=== PATIENT | male | born 1970 | race Caucasian/White ===

== ENCOUNTER → 2019-10-19 15:00 | Outpatient (BNVA) | payer MEDICARE, SELFPAY | PROVIDERS: Family Provider Family Medicine; PCP Family Medicine; Visit Provider Anesthesiology | DX: G89.29 Other chronic pain (principal); M54.5 Low back pain; M75.51 Bursitis of right shoulder; M79.651 Pain in right thigh; M79.652 Pain in left thigh; F17.210 Nicotine dependence, cigarettes, uncomplicated; Z79.891 Long term (current) use of opiate analgesic | CPT/HCPCS: 99214 ==

== ENCOUNTER → 2019-12-21 12:37 | Outpatient (BNVA) | payer MEDICARE, SELFPAY | PROVIDERS: Family Provider Family Medicine; PCP Family Medicine; Visit Provider Nurse Practitioner | DX: Z76.89 Persons encountering health services in other specified circumstances (principal) ==

== ENCOUNTER 2020-02-28 17:36 | Emergency (ER) | payer MEDICARE, SELFPAY ==
[2020-02-28 17:52] VITALS: BP 179/106; PULSE 102; RESP 14; TEMP 36.3; O2SAT 98; BMI 22.1
[2020-02-28 19:06] LABS: Basophils # 0.1 10^3/uL (0.0-0.1); Basophils % 0.9 %; Eosinophils # 0.3 10^3/uL (0.0-0.8); Eosinophils % 2.6 %; Hematocrit 46.5 % (42.0-52.0); Hemoglobin 15.4 g/dL (11.7-16.6); Lymphocytes # 3.1 10^3/uL (0.8-4.8); Lymphocytes % 32.7 %; Mean Corpuscular HGB Conc 33.1 g/dL (30.0-36.0); Mean Corpuscular Hemoglobin 32.9 pg (28.0-34.0); Mean Corpuscular Volume 99.4 fL (80-94); Monocytes # 0.7 10^3/uL (0.2-0.9); Monocytes % 7.6 %; Neutrophils # 5.3 10^3/uL (1.8-7.7); Neutrophils % 55.9 %; Nucleated Red Blood Cells % 0 %; Platelet Count 238 10^3/cmm (130-400); Red Blood Count 4.68 10^6/uL (4.1-5.3); Red Cell Distribution Width 13.1 % (12.1-15.1); White Blood Count 9.5 10^3/uL (4.0-10.0)
[2020-02-28 19:21] LABS: Alanine Aminotransferase 19 U/L (0-41); Albumin Level 4.4 g/dL (3.5-5.2); Alkaline Phosphatase 42 IU/L (40-130); Anion Gap 16.3 (5-19); Aspartate Amino Transferase 40 U/L (0-40); Blood Urea Nitrogen 11 mg/dL (6-20); Calcium 9.7 mg/dL (8.5-10.5); Carbon Dioxide 23 mmol/L (22-29); Chloride 103 mmol/L (98-107); Globulin 2.2 g/dL (1.3-4.6); Glomerular Filtration Rate 58.9 mL/min (90-130); Glucose 96 mg/dL (65-115); Lipase 30 U/L (13-60); Osmolality Calculated 282 mOsm/kg (285-295); Potassium 4.3 mmol/L (3.5-5.1); Sodium 138 mmol/L (136-145); Total Bilirubin 0.5 mg/dL (0.15-1.2); Total Protein 6.6 g/dL (6.6-8.7)
[2020-02-28 19:34] VITALS: BP 153/95; PULSE 86; RESP 18; O2SAT 97
[2020-02-28 20:04] VITALS: BP 155/100; PULSE 90; RESP 18; O2SAT 98
--- NOTE | 2020-02-28 20:11 | ED_ITS ---
HPI - Abdominal Pain General: Chief Complaint: Abdominal Pain Stated Complaint: lower r abd pain Time Seen by Provider: 02/28/20 19:56 History of Present Illness: HPI narrative: Patient is a 49-year-old male comes to the ED with abdominal pain and hernia. Patient says that he has had this hernia for a while now and sometimes it is painful when he lifts things. He says the pain is brief and he will be able to see hernia visibly protruding from the lower abdomen, but when he relaxes it goes away. He said that today he was lifting something and he felt some intense pain in his left lower abdomen and also described feeling a burning sensation there. He says the pain has been constant ever since it started earlier today. He rates the pain an 8 out of 10. Patient did say he had one episode of diarrhea earlier today, but no blood was not stool. He says he has not had any diarrhea since earlier this morning. Denies any nausea/vomiting, fever, chills, dysuria, hematuria, blood in the stool, constipation. Associated Symptoms: Denies chills, constipation, diarrhea, dysuria, fever(s), hematochezia, hematuria, nausea and vomiting Review of Systems Const: Denies: fever(s), chills or fatigue Eyes: Denies: change in vision or eye discomfort ENMT: Denies: throat pain, odynophagia, nasal discharge or nasal congestion Card: Denies: chest pain, palpitations, edema, swelling of feet/ankles, dyspnea on exertion or orthopnea Resp: Denies: dyspnea, productive cough or non-productive cough GI: Reports: abdominal pain; Denies: nausea, vomiting, diarrhea, constipation or hematochezia : Denies: flank pain, difficulty urinating, dysuria or hematuria Musc: Denies: neck pain, back pain or extremity swelling Skin/Breast: Denies: rash or new lesions Neuro: Denies: headache(s), numbness in extremities or weakness in extremities PFSH ED PFSH: Medical History Chronic back pain greater than 3 months duration Encounter for long-term use of opiate analgesic Opioid contract exists Smoker Subacromial bursitis of right shoulder joint Surgical History H/O arthroscopic knee surgery History of nephrectomy, right History of partial surgical removal of colon Social History Smoking and tobacco status: current every day smoker cigarettes Packs smoked per day: 1 Alcohol intake: current Alcohol intake frequency: holidays/special occasions only Physical Exam Const: COMMON NORMALS: no acute distress, patient oriented x3 and alert GENERAL APPEARANCE: cooperative; not comfortable (Patient appears uncomfortable and in some pain.) HENMT: COMMON NORMALS: normocephalic HEAD & SCALP: normocephalic MOUTH: Normal oral and palatal mucosa present THROAT: posterior oropharynx normal and uvula midline Eye: COMMON NORMALS: Equal, round and reactive pupils present PUPIL: Yes Equal, round and reactive pupils present Neck/C-Spine: COMMON NORMALS: supple GENERAL: Yes normal visual inspection Resp: COMMON NORMALS: normal respiratory effort, No retractions, No use of accessory muscles and clear to auscultation bilaterally AUSCULTATION: clear to auscultation bilaterally Cardio: COMMON NORMALS: regular rate, regular rhythm, S1 normal heart sound present, S2 normal heart sound present, No gallops present (Cardio), No clicks present (Cardio), No murmurs present (Cardio) and Peripheral pulses 2+ throughou t RATE: regular rate RHYTHM: regular rhythm HEART SOUNDS: S1 normal heart sound present and S2 normal heart sound present PERIPHERAL PULSES: Peripheral pulses 2+ throughout GI: COMMON NORMALS: Normal to inspection, nondistended, normoactive bowel sounds present and Soft to palpation INSPECTION: Yes visible herniation (Left inguinal-appeared to be nonreducible) AUSCULTATION: Yes normoactive bowel sounds PALPATION: Yes Soft to palpation and Yes Tenderness to palpation present (GI) Details: LLQ (left inguinal hernia was tender to palpation) : COMMON NORMALS: Yes no CVA tenderness BLADDER/KIDNEY EXAM: Yes no CVA tenderness Back/Pelvis: COMMON NORMALS: no CVA tenderness Extremity: COMMON NORMALS: normal to inspection and no pedal edema Neuro: COMMON NORMALS: patient oriented x3 SENSORIUM/ORIENTATION: Yes alert GAIT: Yes Normal gait present Skin: COMMON NORMALS: no rashes or lesions noted GENERAL SKIN EXAM: no rashes or lesions noted and dry skin Course Vital Signs: Vital signs: Vital Signs Temperature 97.3 F L 02/28/20 17:52 Pulse Rate 74 02/28/20 22:20 Respiratory Rate 16 02/28/20 22:20 Blood Pressure 142/88 02/28/20 22:20 Pulse Oximetry 96 02/28/20 22:20 MDM - Abdominal Pain MDM Narrative: Medical decision making narrative: Patient is a 49-year-old male who comes to the ED with painful left inguinal hernia. CBC, CMP and UA were unremarkable. CT of the abdomen showed a left inguinal hernia containing fat and no bowel. General surgery referral was placed with case management. Patient symptoms controlled here in the ED. I told patient that gen surgery should be contacting patient in the next several days to set up an appointment. Patient told that he can return to ED for reevaluation if he has any worsening symptoms. Patient understood and agreed with plan. Lab Data: Attestation: I reviewed the patient's lab results. Labs: Lab Results 02/28/20 02/28/20 02/28/20 Range/Units 18:45 18:45 20:00 WBC 9.5 (4.0-10.0) 10^3/ uL RBC 4.68 (4.1-5.3) 10^6/u L Hgb 15.4 (11.7-16.6) g/dL Hct 46.5 (42.0-52.0) % MCV 99.4 H (80-94) fL MCH 32.9 (28.0-34.0) pg MCHC 33.1 (30.0-36.0) g/dL RDW 13.1 (12.1-15.1) % Plt Count 238 (130-400) 10^3/c mm MPV 9.0 (7.4-10.4) fL Neut % (Auto) 55.9 % Lymph % (Auto) 32.7 % [place] % (Auto) 7.6 % Eos % (Auto) 2.6 % Baso % (Auto) 0.9 % Neut # (Auto) 5.3 (1.8-7.7) 10^3/u L Lymph # (Auto) 3.1 (0.8-4.8) 10^3/u L [place] # (Auto) 0.7 (0.2-0.9) 10^3/u L Eos # (Auto) 0.3 (0.0-0.8) 10^3/u L Baso # (Auto) 0.1 (0.0-0.1) 10^3/u L Nucleated RBC % (a uto) 0 % Nucleated RBCs # 0.0 /100WBC Sodium 138 (136-145) mmol/L Potassium 4.3 (3.5-5.1) mmol/L Chloride 103 (98-107) mmol/L Carbon Dioxide 23 (22-29) mmol/L Anion Gap 16.3 (5-19) BUN 11 (6-20) mg/dL Creatinine 1.3 H (0.7-1.2) mg/dL GFR Calculation 58.9 L (90-130) mL/min Glucose 96 (65-115) mg/dL Calculated Osmolal ity 282 L (285-295) mOsm/k g Calcium 9.7 (8.5-10.5) mg/dL Total Bilirubin 0.5 (0.15-1.2) mg/dL AST 40 (0-40) U/L ALT 19 (0-41) U/L Alkaline Phosphata se 42 (40-130) IU/L Total Protein 6.6 (6.6-8.7) g/dL Albumin 4.4 (3.5-5.2) g/dL Globulin 2.2 (1.3-4.6) g/dL Lipase 30 (13-60) U/L Urine Color Yellow (Yellow) Urine Appearance Clear (CLEAR) Urine pH 6 (5-7) Ur Specific Gravit y 1.020 (1.005-1.030) Urine Protein Neg (Negative) Urine Glucose (UA) Norm (Normal) Urine Ketones Negative (Negative) Urine Blood Neg (Negative) Urine Nitrate Negative (Negative) Urine Bilirubin Neg (NEGATIVE) Urine Urobilinogen Norm (Negative) mg/dL Ur Leukocyte Ashley ase Negative (Negative) Urine RBC None (0-2) /hpf Urine WBC 0-4 H (0-5) /hpf Ur Squamous Epith Cells 5-10 H (0-5) Urine Bacteria Trace (NONE) Imaging Data ^: CT Abd/Pel: Attestation: I personally reviewed and interpreted this imaging study as follows: Radiologist's impression: [address] [place] [address] CT Scan Report Signed Patient: Chepe Madrigal Unit #: [id number] : 1970 [id number] Age/Sex: 49 / M ADM Date: 02/28/20 Loc: ER Room/Bed: Attending Dr: Ordering Provider/Ordering MD: Shola Carcamo Date of Service: 02/28/20 Procedure(s): CT abdomen pelvis con [id number] Accession Number(s): [id number] Report Number: [id number] PROCEDURE INFORMATION: Exam: CT Abdomen And Pelvis Without Contrast Exam date and time: 02/28/2020 8:20 PM Age: 49 years old Clinical indication: Abdominal pain; Localized; Left lower quadrant (llq); Prior surgery; Surgery date: 6+ months; Surgery type: Gb, colon, R nephrectomy; Patient HX: C/O llq abd pain - ? hernia worsened today after lifting; Additional info: Lower right abdom pain, hernia TECHNIQUE: Imaging protocol: Computed tomography of the abdomen and pelvis without contrast. Radiation optimization: All CT scans at this facility use at least one of these dose optimization techniques: automated exposure control; mA and/or kV adjustment per patient size (includes targeted exams where dose is matched to clinical indication); or iterative reconstruction. COMPARISON: No relevant prior studies available. RADIATION DOSE METRICS: Total DLP: 508.71 mGy-cm FINDINGS: Liver: The liver is normal. Gallbladder and bile ducts: Status post cholecystectomy. The common bile duct measures 9 mm which is mildly dilated. No evidence of obstructive calculus or lesion. This degree of dilation is not unusual following cholecystectomy. Pancreas: The pancreas is normal. Spleen: The spleen is normal. Adrenals: The adrenals are normal. Kidneys and ureters: Status post right nephrectomy. The left kidney is normal. No hydronephrosis. Stomach and bowel: There are few colonic diverticula. No associated wall thickening or inflammation. No evidence of bowel obstruction. Appendix: No evidence of appendicitis. Intraperitoneal space: Unremarkable. No free air. No significant fluid collection. Vasculature: Unremarkable. No abdominal aortic aneurysm. Lymph nodes: Unremarkable. No enlarged lymph nodes. Bladder: The bladder is normal with no evidence of calculi. Reproductive: The prostate is mildly enlarged, 4.5 cm. Bones/joints: There are mild degenerative changes of the lumbar spine. No fracture. Soft tissues: There is a small fat containing left inguinal hernia. CT/CT abdomen pelvis wo con [id number] IMPRESSION: 1. Small fat containing left inguinal hernia. No bowel within the hernia. 2. Scattered colonic diverticula. No acute inflammatory findings. Radiation Dose CTDIVOL = (mGy): DLP = 508.71 (mGy-cm) Dictated By: Owen Quevedo MD Signed By: Owen uQevedo MD Signed Date/Time: 02/28/202124 DD/ 22 Discharge Plan Discharge Patient Disposition: Home, Self-Care Clinical Impression: Inguinal hernia Qualifiers: Obstruction and gangrene presence: without obstruction or gangrene Laterality: unilateral Recurrence: non-recurrent Qualified Code(s): K40.90 - Unilateral inguinal hernia, without obstruction or gangrene, not specified as recurrent Condition: Stable Prescriptions: No Action hydrocodone-acetaminophen 5-325 mg tablet 1 tab PO QID PRN (Reason: pain) 30 Days Qty: 120 RF: 0 Hold Instructions: Home Medication placed on hold at Doctor's office ibuprofen 200 mg Tablet 200 mg PO Q6H PRN (Reason: Pain) RF: 0 Breo Ellipta 100-25 mcg/dose blister with device See Rx Instructions .ROUTE .COMPLEX RF: 0 Discharge Orders: Discharge Order (Routine); Ordered 02/28/20 Ordered By: Shola Carcamo Referrals: Paulina Talley DO [Primary Care Provider] - Discharge Diet: Regular Discharge Activity: Limit activity as instructed Patient Instructions: Inguinal Hernia (ED) Activity Restrictions/Additional Instructions: I placed a referral to case management for you to be seen by general surgery. They should be contacting you in the next several days to set up an appointment. You can return to work on Tuesday, March 03 but limit lifting to under 10 pounds. Call your PCP tomorrow morning to set up an appointment for reevaluation in 7 to 10 days. You can take Tylenol or ibuprofen for any pain. If symptoms worsen you can return to ED for reevaluation. 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
[2020-02-28 20:35] LABS: Add Urine Culture? No; Bacteria Urine TRACE; Bilirubin Urine Neg (NEGATIVE); Blood Urine Neg (Negative); Glucose Urine UA Norm (Normal); Ketones Urine Negative (Negative); Leukocyte Esterase Urine Negative (Negative); Nitrate Urine Negative (Negative); Protein Urine Neg (Negative); Urine Appearance Clear (CLEAR); Urine Color Yellow (Yellow); Urobilinogen Urine Norm (Negative); WBC Urine 0-4 /hpf (0-5); pH Urine 6 (5-7)
[2020-02-28 20:50] VITALS: BP 156/96; PULSE 89; RESP 16; O2SAT 96
[2020-02-28] MEDS: morphine 4 mg/mL SDV 1 mL IVP (20:56)
[2020-02-28] MEDS: ondansetron 2 mg/ML SDV 2 mL 4 MG IVP (20:57)
[2020-02-28] MEDS: sodium chloride 0.9% 1,000 ML 999 ML IV (20:59)
[2020-02-28 22:20] VITALS: BP 142/88; PULSE 74; RESP 16; O2SAT 96
[2020-02-28] MEDS: HYDROcodone-acetaminophen 7.5-325 mg Tablet 1 TAB PO (22:31)
--- NOTE | 2020-02-29 09:57 | DCPLANNER ---
embedded software manager had message to schedule a follow up appointment for patient with general surgery. embedded software manager called [facility], spoke with [facility], a follow up appointment was scheduled for Wednesday, March 04, 2020 at 3:[address] Juárez. Clinic will call patient with appointment information.
--- NOTE | 2020-03-14 14:10 | DCPLANNER ---
Patient had an appointment scheduled for 03.04.20 with [employer]. Patient did attend the appointment.
== END 2020-02-28 22:32 | disposition home or self-care (01) ==
PROVIDERS: Emergency Medicine; Emergency Provider Physician Assistant; PCP Family Medicine
DX: K40.90 Unilateral inguinal hernia, without obstruction or gangrene, not specified as recurrent (principal); F17.210 Nicotine dependence, cigarettes, uncomplicated; Z90.49 Acquired absence of other specified parts of digestive tract; Z90.5 Acquired absence of kidney
CPT/HCPCS: 12345; 36415; 74176; 80053; 81001; 83690; 85025; 96361; 96374; 96375; 99283; J2270; J2405; J7030

== ENCOUNTER 2020-03-05 11:02 | Day surgery (SDC) | payer MEDICARE, SELFPAY ==
[2020-03-04 16:23] VITALS: BMI 23.3
[2020-03-05 11:24] VITALS: BP 165/100; PULSE 80; RESP 18; TEMP 36.4; O2SAT 98
[2020-03-05] MEDS: sodium chloride 0.9% 1,000 ML 30 ML IV (11:35)
--- NOTE | 2020-03-05 11:44 | ANES.PREANE2 ---
Pre-Anesthetic Assessment Pre-Anesthetic Assessment: Height/Weight: Height 1.6 m Weight 59.874 kg Temp Pulse Resp BP Pulse Ox 97.6 F 80 18 165/100 98 03/05/20 11:24 03/05/20 11:24 03/05/20 11:24 03/05/20 11:24 03/05/20 11:24 Preop Diagnosis: Left inguinal hernia Proposed Procedure: Operation Date: 03/05/20 12:45 Proposed Procedures p Inguinal Hernia Repair w/ Mesh 47948 K40.90(Left) - Martinez Juárez MD Last intake: Intake Last Liquid Date 03/04/20 Last Liquid Time 23:00 Last Solid Date 03/04/20 Last Solid Time 19:00 Social: Social History: Alcohol (occ) and Tobacco Exam: Pre-Anes Outpt Exam: alert, oriented x 3, clear to auscultation bilaterally and regular rate & rhythm Airway: Submandibular: WNL Cervical ROM: WNL MP: 2 Dentition: False (upper and lower) History/ROS: No significant history except as noted Pulmonary: Pulmonary: None reported CV/HEM: CV/HEM: None reported : : None reported Hepatic: Hepatic: None reported GI: GI: None reported Metabolic: Metabolic: None reported Musc/skel: Musc/skel: Lower Back Pain and OA/DJD Neuropsych: Neuropsych: None reported Anesthetic Plan: ASA status: 2 Anesthesia: Anesthesia Evaluation and General Risk of > 500 ml blood loss (7ml/kg in children): No PFSH Anesthesia PFSH: Medical History Chronic back pain greater than 3 months duration Subacromial bursitis of right shoulder joint Surgical History H/O arthroscopic knee surgery H/O circumcision H/O colonoscopy 5 years ago H/O esophagogastroduodenoscopy History of nephrectomy, right History of partial surgical removal of colon Hx of cholecystectomy Family History Other Diabetes Denies family history of CAD (coronary artery disease) Anesthesia complication Bleeding disorder Cancer Social History Smoking and tobacco status: current every day smoker cigarettes Packs smoked per day: 1 Alcohol intake: current Alcohol intake frequency: holidays/special occasions only Household members: other Details: room mate Marital status: Single Current occupational status: employed History of recent travel: No Data Anesthesia Cardiac Studies: No Data to Display
--- NOTE | 2020-03-05 12:03 | W.PM.OPSUD ---
Surgery/Procedure H&P Update DATE OF PROCEDURE: March 05, 2020 DATE H&P PERFORMED: 03/04/20 H&P UPDATE INFORMATION: I have reviewed H&P completed within last 30 days, I have examined patient prior to procedure and No changes to prior documentation PREOP DIAGNOSIS: Left inguinal hernia PLANNED PROCEDURE: Operation Date: 03/05/20 12:45 Proposed Procedures p Inguinal Hernia Repair w/ Mesh [id number] K40.90(Left) - Martinez Juárez MD
[2020-03-05] MEDS: vancomycin 1,000 MG in sodium chloride 0.9% 250 ML 250 MG IV (12:13)
[2020-03-05] MEDS: lidocaine 1% INJ 20 mL SUBCUT (13:21)
[2020-03-05 13:31] VITALS: BP 141/88; PULSE 105; RESP 18; TEMP 36.6; O2SAT 98
[2020-03-05 13:35] VITALS: BP 101/70; PULSE 112; RESP 20; O2SAT 99
[2020-03-05 13:40] VITALS: BP 125/87; PULSE 96; RESP 20; TEMP 36.6; O2SAT 100
[2020-03-05 13:58] VITALS: BP 123/75; PULSE 94; RESP 18; TEMP 36.6; O2SAT 98
[2020-03-05] MEDS: HYDROcodone-acetaminophen 5-325 mg Tablet 1 TAB PO (14:15)
--- NOTE | 2020-03-05 14:18 | P.OP_ITS ---
Operative Report Date of procedure: March 05, 2020 Pre-op Diagnosis: Left inguinal hernia Post-op Diagnosis: Small reducible indirect and large direct left inguinal hernia Procedure Done: Open repair of left inguinal hernia with plug and mesh Pathology: none sent Surgeon: Martinez Juárez Anesthesia: General Estimated blood loss (mL): 10 Condition: stable Disposition: PACU Procedure: A 5 cm incision was made over the left inguinal canal using 15 blade, the subcutaneous tissue, Aguila's fascia divided using electrocautery until the external oblique aponeurosis was identified. Using a 15 blade, a small opening was made in the external oblique aponeurosis along the length of the fibers, this was grasped with hemostats and opened using Metzenbaum scissors medially to the external ring and laterally beyond the internal ring. The contents of inguinal canal were dissected free from the wall and a Kelayres drain was placed around it. There was a large direct hernia noted.. The cremasteric muscles were divided until the sac could be dissected free from the spermatic cord and reduced into the preperitoneal space. A small plug was placed in the internal ring and sutured using 2-0 Prolene [id number] suture. A Proloop mesh was introduced and using 2-0 Prolene suture the medial edge of the mesh were sutured to the fascia overlying the pubic tubercle, and the suture was run to approximate the inferior edge of the mesh to the shelving edge of inguinal ligament to a point beyond the internal ring. Interrupted 2-0 Prolene suture was used to approximate the superior edge of the mesh to the internal oblique muscles and the 2 limbs of the mesh was sutured lateral to the internal ring and approximated to the internal oblique muscle. The wound was copiously irrigated with saline, good hemostasis noted and the external oblique aponeurosis was closed with running 2-0 Vicryl suture, Aguila's fascia approximated using running 3-0 Vicryl suture, and skin was closed using running subcuticular 4-0 Monocryl suture and Dermabond. 0.5% Marcaine was infiltrated around the incision.
[2020-03-05 14:24] VITALS: BP 124/68; PULSE 88; RESP 18; O2SAT 97
== END 2020-03-05 14:55 | disposition home or self-care (01) ==
PROVIDERS: Visit Provider Surgery
PROC: (CPT 49505; principal; 2020-03-05 12:45)
DX: K40.90 Unilateral inguinal hernia, without obstruction or gangrene, not specified as recurrent (principal); M19.90 Unspecified osteoarthritis, unspecified site; F17.210 Nicotine dependence, cigarettes, uncomplicated
CPT/HCPCS: 49505; 12345; 96365; J1100; J1885; J2001; J2250; J2405; J2704; J3010; J3370; J3490; J7030; J7050

== ENCOUNTER → 2020-05-02 10:14 | Outpatient (BNVA) | payer MEDICARE, SELFPAY | PROVIDERS: Visit Provider Nurse Practitioner | DX: G89.29 Other chronic pain (principal); M54.42 Lumbago with sciatica, left side; M54.41 Lumbago with sciatica, right side; M54.9 Dorsalgia, unspecified; F17.210 Nicotine dependence, cigarettes, uncomplicated; Z79.891 Long term (current) use of opiate analgesic | CPT/HCPCS: 99213 ==

== ENCOUNTER → 2020-08-18 12:09 | Outpatient (BNVA) | payer MEDICARE, SELFPAY | PROVIDERS: Visit Provider Nurse Practitioner Family | DX: Z20.828 Contact with and (suspected) exposure to other viral communicable diseases (principal) | CPT/HCPCS: 87635 ==

== ENCOUNTER 2021-02-01 11:05 | Emergency (ER) | payer MEDICARE, SELFPAY ==
[2021-02-01 11:06] VITALS: BP 184/111; PULSE 108; RESP 18; TEMP 36.9; O2SAT 98; BMI 25.7
[2021-02-01 11:14] VITALS: O2SAT 97
--- NOTE | 2021-02-01 11:20 | W.ED.MALEGU ---
HPI - Male Genitourinary General: Chief complaint: Urogenital-Male Stated complaint: LEFT KIDNEY PAIN Time Seen by Provider: 02/01/21 11:13 Source: patient Mode of arrival: ambulatory Limitations: no limitations History of Present Illness: HPI Narrative: Patient is a 50-year-old male with a history of multiple episodes of urolithiasis leading to damage of his right kidney and the nephrectomy. He presents today with left flank pain that has been ongoing for about 3 days. Symptoms are not getting any better and may be getting a little worse and he may damage his remaining kidney. He denies any dysuria, hematuria, frequency or difficulty urinating. He denies any fever, body aches. He denies any myalgias. Onset (ago): day(s) (3) Duration: constant Location: left flank Severity: moderate Quality: sharp Exacerbating factors: none Associated symptoms: Deny discharge, dysuria, fevers/chills, hematuria, nausea, rash, swelling, urinary incontinence, urinary retention, mass or vomiting Review of Systems General: Reports: 10 or more systems reviewed and unremarkable except in HPI and below GI: Denies: nausea or vomiting : Denies: dysuria, urinary incontinence or hematuria PFSH ED PFSH: Medical History (Updated 02/01/21 @ 12:41 by Concepción Piedra [place] [facility] [place] Chronic back pain greater than 3 months duration Subacromial bursitis of right shoulder joint Surgical History (Reviewed 02/01/21 @ 11:28 by Concepción Piedra [place], [facility] [place] H/O arthroscopic knee surgery H/O circumcision H/O colonoscopy 5 years ago H/O esophagogastroduodenoscopy History of nephrectomy, right History of partial surgical removal of colon Hx of cholecystectomy Status post left inguinal hernia repair (03/05/20) Family History (Reviewed 02/01/21 @ 11:28 by Concepción Piedra [place], [facility] [place] Other Diabetes Denies family history of CAD (coronary artery disease) Anesthesia complication Bleeding disorder Cancer Social History (Reviewed 02/01/21 @ 11:28 by Concepción Piedra [place], [facility] [place] Smoking and tobacco status: current every day smoker cigarettes Packs smoked per day: 1 Alcohol intake: current Alcohol intake frequency: holidays/special occasions only Household members: other Details: room mate Marital status: Single Current occupational status: employed History of recent travel: No Physical Exam Const: COMMON NORMALS: no acute distress, average body habitus, patient oriented x3, no limitations, healthy appearing, alert and well nourished HENMT: COMMON NORMALS: normocephalic, atraumatic and moist oral mucous membranes HEAD & SCALP: normocephalic and atraumatic Neck/C-Spine: COMMON NORMALS: no meningeal signs and no JVD Resp: COMMON NORMALS: normal respiratory effort, No retractions, No use of accessory muscles, clear to auscultation bilaterally and percussion normal AUSCULTATION: clear to auscultation bilaterally PERCUSSION: percussion normal Cardio: COMMON NORMALS: no JVD, regular rate, regular rhythm, S1 normal heart sound present, S2 normal heart sound present, No gallops present (Cardio), No clicks present (Cardio), No murmurs present (Cardio), No rub (Cardio) and Peripheral pulses 2+ throughout RATE: regular rate RHYTHM: regular rhythm HEART SOUNDS: S1 normal heart sound present and S2 normal heart sound present PERIPHERAL PULSES: Peripheral pulses 2+ throughout GI: COMMON NORMALS: Normal to inspection, nondistended, normoactive bowel sounds present, Soft to palpation, non-tender, No hepatosplenomegaly present, no masses and no bruits PALPATION: Yes Soft to palpation and Yes No hepatosplenomegaly present : COMMON NORMALS: Yes no CVA tenderness BLADDER/KIDNEY EXAM: Yes no CVA tenderness Back/Pelvis: COMMON NORMALS: no CVA tenderness Neuro: COMMON NORMALS: patient oriented x3 SENSORIUM/ORIENTATION: Yes alert MENINGEAL SIGNS: Yes no meningeal signs Course Reevaluation(s): Reevaluation #1: Discussed his lab and imaging findings with him. UA negative for acute findings. CT scan negative urolithiasis. He does have mild pericardial effusion and I advised an outpatient echocardiogram. He voiced understanding and is in agreement with the plan. Time: 12:38 Vital Signs: Vital signs: Vital Signs Temperature 98.4 F 02/01/21 11:06 Pulse Rate 92 02/01/21 12:56 Respiratory Rate 18 02/01/21 11:06 Blood Pressure 153/89 02/01/21 12:56 Pulse Oximetry 98 02/01/21 12:56 MDM - Male MDM Narrative: Medical decision making narrative: 50-year-old male who presents to the emergency department with concerns for urolithiasis. Evaluation in the emergency department is negative for urolithiasis with negative CT scan. UA was also negative for UTI. He is discharged home on conservative measures. Medical Records: Attestation: I reviewed the patient's medical records. Lab Data: Attestation: I reviewed the patient's lab results. Labs: Lab Results 02/01/21 Range/Units 12:07 Urine Color Yellow (Yellow) Urine Appearance Clear (CLEAR) Urine pH 5 (5-7) Ur Specific Gravit y 1.015 (1.005-1.030) Urine Protein Trace (Negative) Urine Glucose (UA) Norm (Normal) Urine Ketones Negative (Negative) Urine Blood Neg (Negative) Urine Nitrate Negative (Negative) Urine Bilirubin Neg (Negative) Urine Urobilinogen Norm (Negative) mg/dL Ur Leukocyte Ashley ase Negative (Negative) Urine RBC None (0-2) /hpf Urine WBC 0-4 H (0-5) /hpf Ur Squamous Epith Cells 0-4 H (0-5) /hpf Amorphous Sediment Not Reportable Urine Bacteria Trace (NONE) /hpf Urine Mucus Trace /hpf Imaging Data: CT Abd/Pel: Attestation: I personally reviewed and interpreted this imaging study as follows: Radiologist's impression: [address] [id number] Scan ReportSigned Patient: Chepe Madrigal #: [id number]: 1970Acct#:[id number]/Sex: 50 / MADM Date: 02/01/21Loc: ERRoom/Bed:Attending Dr: Ordering Provider/Ordering MD: Concepción Piedra [place] [facility] [place] Date of Service: 02/01/21 Procedure(s): CT kidney stone 67399 Accession Number(s): [id number] Report Number: [id number] PROCEDURE INFORMATION: Exam: CT Abdomen And Pelvis Without Contrast Exam date and time: 02/01/2021 11:21 AM Age: 50 years old Clinical indication: Abdominal pain; Flank; Left; Prior surgery; Surgery type: Kidney, colon. Gb; Additional info: Left flank pain, history of kidney stones TECHNIQUE: Imaging protocol: Computed tomography of the abdomen and pelvis without contrast. Radiation optimization: All CT scans at this facility use at least one of these dose optimization techniques: automated exposure control; mA and/or kV adjustment per patient size (includes targeted exams where dose is matched to clinical indication); or iterative reconstruction. COMPARISON: CT abdomen pelvis wo con [id number] 02/28/2020 8:56 PM RADIATION DOSE METRICS: Total DLP (mGy-cm): 616.76 FINDINGS: Detailed evaluation of the abdominal and pelvic viscera is somewhat limited in the absence of intravenous contrast. Inferior thorax: Interstitial prominence. 11 mm pericardial effusion. Liver: Fatty infiltration of the liver. Gallbladder and bile ducts: Status post cholecystectomy. Pancreas: No pancreatic mass or ductal dilatation. Spleen: No splenomegaly. Adrenal glands: Unremarkable adrenals. Kidneys and ureters: Status post right nephrectomy. Punctate hyperdensity contiguous with the capsular surface of the left lower pole. No hydronephrosis. Stomach and bowel: Dilated fluid-filled stomach. Small bowel dilatation without a focal transition zone. Prominent stool and diverticula, without pericolonic inflammation. Appendix: No acute appendicitis. Intraperitoneal space: No significant free fluid. Vasculature: Normal caliber of the abdominal aorta. Lymph nodes: Subcentimeter lymph nodes. Urinary bladder: Circumferential bladder wall thickening and mildly lobulated morphology. Reproductive: Prostate and vas deferens calcification. Bones/joints: Degenerative change and disc bulging. Soft tissues: Small inguinal hernia. CT/CT kidney stone [id number] IMPRESSION: 1. Circumferential bladder wall thickening and mildly lobulated morphology. 2. Prominent stool and diverticula, without pericolonic inflammation. 3. Additional findings as described above. Radiation Dose CTDIVOL = (mGy): DLP = 616.76 (mGy-cm) Dictated By:Zaid Cook MDSigned By:Zaid Cook MDSigned Date/Time:02/01/21 1222DD/ 1221 Discharge Plan Discharge Patient Disposition: Home Clinical Impression: Acute left flank pain, Effusion, pericardium Condition: Stable Prescriptions: No Action No Known Home Medications RF: 0 Discharge Orders: Discharge ED (Routine); Ordered 02/01/21 Ordered By: Concepción Piedra Discharge Diet: Usual diet Discharge Activity: Increase activity as tolerated Patient Instructions: Pericardial Effusion (ED), Abdominal Pain (ED) Activity Restrictions/Additional Instructions: Return for any new or worsening symptoms. Follow-up with your primary care provider within 3 days. You will be contacted by case management to schedule an outpatient echocardiogram to evaluate the fluid around your heart. Coding Level of Care Code ED [employer] for [employer] Fwd Exam Detailed
[2021-02-01 12:25] LABS: Urine Appearance Clear (CLEAR); Urine Color Yellow (Yellow); pH Urine 5 (5-7)
[2021-02-01 12:26] LABS: Add Urine Microscopic? YES; Bilirubin Urine Neg (Negative); Blood Urine Neg (Negative); Glucose Urine UA Norm (Normal); Ketones Urine Negative (Negative); Leukocyte Esterase Urine Negative (Negative); Nitrate Urine Negative (Negative); Protein Urine Trace (Negative); Specific Gravity, Urine 1.015 (1.005-1.030); Urobilinogen Urine Norm (Negative)
[2021-02-01 12:28] LABS: Bacteria Urine TRACE /hpf; Mucus Urine TRACE /hpf; Squamous Epithelial Cell Urine 0-4 /hpf (0-5); WBC Urine 0-4 /hpf (0-5)
[2021-02-01 12:29] LABS: Add Urine Culture? No
[2021-02-01 12:56] VITALS: BP 153/89; PULSE 92; O2SAT 98
--- NOTE | 2021-02-02 12:07 | DCPLANNER ---
academic manager had message to schedule a follow up appointment for patient for an outpatient echocardiogram. Patient does not have a primary care physician, case aide called patient at [phone], no answer and no voicemail box set up. academic manager then called phone [phone], spoke with patients friend. academic manager spoke with patients friend, to see if patient had a primary care physician. After speaking with patients family, case aide was asked to get patient established with a primary care physician, and to schedule an out patient echo cardiogram for patient. academic manager faxed order for echocardiogram to centralized scheduling, will call for appointment information. After the echocardiogram is scheduled, case aide will call [facility] and schedule a follow up appointment with Dr. Jimenez.
--- NOTE | 2021-02-11 14:23 | DCPLANNER ---
Patient has an outpatient echo scheduled for Tuesday, March 02, 2021 at 7:15. Centralized scheduling will call patient with appointment information.
--- NOTE | 2021-04-15 08:14 | DCPLANNER ---
Patient had an outpatient echo scheduled for 03.02.21 - patient did attend appointment.
== END 2021-02-01 13:02 | disposition home or self-care (01) ==
PROVIDERS: Emergency Provider Family Medicine
DX: R10.9 Unspecified abdominal pain (principal); I31.3 Pericardial effusion (noninflammatory); Z90.5 Acquired absence of kidney; F17.210 Nicotine dependence, cigarettes, uncomplicated
CPT/HCPCS: 74176; 81001; 99283

== ENCOUNTER 2021-03-02 06:40 | Outpatient (CLI) | payer MEDICARE, SELFPAY ==
--- NOTE | 2021-03-02 07:00 | USCV_ITS ---
Chepe Madrigal Age: 50 Gender: M : 1970 Exam Date: 03/02/2021 07:23 Ordering Phys: Concepción Piedra MD [facility] [place] Technologist: Nikki Rodriguez Exam Location: [facility] [place] Indication: PERICARDIAL EFFUSION BP: 130 / 80 HR: 92 Rhythm: Sinus Technical Quality: Adequate MEASUREMENTS (Male / Female) Normal Values 2D ECHO LV Diastolic Diameter PLAX 3.6 cm 4.2 - 5.9 / 3.9 - 5.3 cm LV Systolic Diameter PLAX 3.2 cm IVS Diastolic Thickness 1.3 cm 0.6 - 1.0 / 0.6 - 0.9 cm IVS Systolic Thickness 1.1 cm LVPW Diastolic Thickness 1.1 cm 0.6 - 1.0 / 0.6 - 0.9 cm LVPW Systolic Thickness 1.0 cm RV Chamber Size 3.0 cm LVOT Diameter 2.0 cm LV Ejection Fraction 2D Teich 7.8 % LV Ejection Fraction MOD 2C 49.4 % LV Ejection Fraction 2C AL 51.5 % LA Diameter 2.4 cm LA Width 2.4 cm LA Height 3.6 cm RA Width 3.4 cm RA Height 4.4 cm Aorta at Sinotubular Diameter 2.3 cm M-MODE Aortic Annulus Diameter 2.5 cm LA Ao Ratio MM 1.0 MV E Point Septal Separation 0.3 cm DOPPLER AV Peak Velocity 98.0 cm/s LVOT Peak Velocity 86.0 cm/s AV Area Cont Eq vti 2.4 cm squared AV Area Cont Eq pk 2.8 cm squared MV Area PHT 5.9 cm squared Mitral E to A Ratio 0.6 MV E' Velocity 33.0 cm/s Mitral E to MV E' Ratio 4.6 Mitral E to LV E' Lateral Ratio 4.4 Mitral E to LV E' Septal Ratio 4.8 TR Peak Velocity 377.5 cm/s TR Peak Gradient 57.0 mmHg Right Atrial Pressure 3.0 mmHg Pulmonary Artery Systolic Pressu 60.0 mmHg PV Peak Velocity 130.0 cm/s RV Acceleration Time 0.1 s RV Ejection Time 0.4 s RV AcT/ET 0.3 FINDINGS Left Ventricle Normal left ventricular size. LV systolic function is normal with EF of 50-55%. No regional wall motion abnormalities. Grade 1 diastolic dysfunction Right Ventricle The right ventricle is normal in size and function. Right Atrium The right atrium is normal in size. Left Atrium The left atrium is normal in size. Mitral Valve Structurally normal mitral valve without significant stenosis or prolapse. There is no mitral regurgitation. Aortic Valve Structurally normal aortic valve without significant sclerosis or stenosis. There is no aortic regurgitation. Tricuspid Valve Structurally normal tricuspid valve without significant stenosis or regurgitation. Insufficient TR jet to calculate RVSP Pulmonic Valve Structurally normal pulmonic valve without significant stenosis. There is no pulmonic regurgitation. Pericardium Normal pericardium without effusion. Aorta Normal ascending aorta dimension. CONCLUSIONS LV systolic function is normal with EF of 50-55% Grade 1 diastolic dysfunction No significant valvular heart disease No comparison studies are available Colby Dejesus MD (Electronically Signed) Final Date: 02 March 2021 11:28 S
== END 2021-03-02 06:41 | disposition home or self-care (01) ==
PROVIDERS: Visit Provider Family Medicine
DX: I31.3 Pericardial effusion (noninflammatory) (principal); I51.89 Other ill-defined heart diseases
CPT/HCPCS: 93306

== ENCOUNTER → 2021-10-08 15:04 | Outpatient (BNVA) | payer MEDICARE, SELFPAY | PROVIDERS: PCP Family Medicine Adult Medicine; Visit Provider Nurse Practitioner Family | DX: Z20.822 Contact with and (suspected) exposure to COVID-19 (principal) | CPT/HCPCS: 87635 ==

== ENCOUNTER → 2022-02-04 15:28 | Outpatient (BNVA) | payer MEDICARE, SELFPAY | PROVIDERS: PCP Family Medicine Adult Medicine; Visit Provider Family Medicine Adult Medicine | DX: I10 Essential (primary) hypertension (principal); Z90.5 Acquired absence of kidney; G25.0 Essential tremor; F41.9 Anxiety disorder, unspecified; M54.9 Dorsalgia, unspecified; G89.29 Other chronic pain; I31.3 Pericardial effusion (noninflammatory); J30.9 Allergic rhinitis, unspecified | CPT/HCPCS: 80053; 84443; 85025 ==

== ENCOUNTER 2022-03-26 11:03 | Inpatient (IN) | payer MEDICARE, SELFPAY ==
[2022-03-26 11:15] VITALS: BP 137/82; PULSE 92; RESP 16; TEMP 36.8; O2SAT 97; BMI 23.0
[2022-03-26 11:43] LABS: Basophils # 0.1 10^3/uL (0.0-0.1); Eosinophils # 0.4 10^3/uL (0.0-0.8); Eosinophils % 4.9 %; Hemoglobin 15.5 g/dL (11.7-16.6); Lymphocytes # 1.9 10^3/uL (0.8-4.8); Lymphocytes % 21.8 %; Mean Corpuscular HGB Conc 34.4 g/dL (30.0-36.0); Mean Corpuscular Hemoglobin 34.6 pg (28.0-34.0); Mean Corpuscular Volume 100.4 fl (80-94); Mean Platelet Volume 8.9 fL (7.4-10.4); Monocytes # 0.9 10^3/uL (0.2-0.9); Monocytes % 10.6 %; Neutrophils # 5.28 10^3/uL (1.8-7.7); Neutrophils % 61.4 %; Nucleated Red Blood Cells % 0 %; Platelet Count 196 10^3/cmm (130-400); Red Blood Count 4.48 10^6/uL (4.1-5.3); Red Cell Distribution Width 12.9 % (12.1-15.1); White Blood Count 8.6 10^3/uL (4.0-10.0)
--- NOTE | 2022-03-26 11:49 | W.ED.GENADLT ---
HPI - General Adult General: Chief complaint: Psychiatric Symptoms Stated complaint: MHE Time Seen by Provider: 03/26/22 11:21 History of Present Illness: HPI: [41]yo patient w/ hx of depression presenting to the emergency room for aggressive behavior and worsening depression. Patient tells me that he is chronically on Zoloft 100mg daily. Despite taking medication, he recently had a conflict at home with his daughter and accidentally structure. Patient was remorseful and came to the emergency room and telling me that his depression has gotten worse. Patient denies any active suicidal ideation or plan. On arrival, the patient is AAOx3 and cooperative with my evaluation. No focal complaints of chest pain, shortness of breath, palpitations, N/V, focal GI/ complaints. Currently denies SI/HI. No complaints of hallucinations. Onset: acute on chronic Duration: ongoing Location: home Severity: severe Associated symptoms: Deny chest pain, dyspnea, nausea, rash, palpitations or vomiting Review of Systems Const: Denies: fever(s) or chills Eyes: Denies: change in vision ENMT: Denies: mouth pain Card: Denies: chest pain or palpitations Resp: Denies: dyspnea or non-productive cough GI: Denies: abdominal pain, nausea, vomiting or diarrhea : Denies: dysuria Musc: Denies: extremity pain Skin/Breast: Denies: rash or new lesions Neuro: Denies: weakness in extremities Psych: Reports: depression Nicolás/Lymph: Denies: easy bruising PFSH ED PFSH: Medical History Allergic rhinitis due to allergen Anxiety disorder Benign familial tremor Chronic back pain greater than 3 months duration CKD (chronic kidney disease) stage 2, GFR 60-89 ml/min Left kidney only since in 1987 right nephrectomy for kidney stones. 02/28/2020 creatinine 1.3 and 02/04/22 creatinine 1.1 with a GFR of 71 COVID Positive test COVID 10/08/21 Elevated blood pressure reading in office with diagnosis of hypertension Encounter for long-term use of opiate analgesic Hypertension Kidney stones Opioid contract exists Single kidney Subacromial bursitis of right shoulder joint Surgical History H/O arthroscopic knee surgery H/O circumcision H/O colonoscopy 5 years ago H/O esophagogastroduodenoscopy History of nephrectomy, right 1987 due to kidney stones History of partial surgical removal of colon Hx of cholecystectomy Status post left inguinal hernia repair (03/05/20) Family History Other Diabetes Denies family history of CAD (coronary artery disease) Anesthesia complication Bleeding disorder Cancer Social History Smoking and tobacco status: current every day smoker cigarettes Packs smoked per day: 0.25 Alcohol intake: current Alcohol intake frequency: 0-2 Drinks per Day Household members: other Details: room mate Marital status: Single Number of children: 0 Current occupational status: employed and disabled History of recent travel: No Physical Exam Const: COMMON NORMALS: alert HENMT: COMMON NORMALS: atraumatic HEAD & SCALP: atraumatic MOUTH: moist mucous membranes not abnormal Eye: COMMON NORMALS: EOMs intact bilaterally and conjunctivae normal CONJUNCTIVA: Yes conjunctivae normal Neck/C-Spine: COMMON NORMALS: full ROM and supple Resp: COMMON NORMALS: normal respiratory effort and clear to auscultation bilaterally AUSCULTATION: clear to auscultation bilaterally Cardio: COMMON NORMALS: regular rate RATE: regular rate GI: COMMON NORMALS: Soft to palpation and non-tender PALPATION: Yes Soft to palpation Extremity: COMMON NORMALS: full ROM Neuro: SENSORIUM/ORIENTATION: Yes alert MOTOR EXAM: No Abnormal motor strength present and Other motor observations present (no focal motor deficits) Psych: COMMON NORMALS: speech normal SPEECH: Yes normal speech MOOD & AFFECT: Yes depressed mood Course Vital Signs: Vital signs: Vital Signs Temperature 98.2 F 03/26/22 11:15 Pulse Rate 86 03/26/22 12:04 Respiratory Rate 18 03/26/22 12:04 Blood Pressure 137/80 03/26/22 12:04 Pulse Oximetry 95 03/26/22 12:04 MDM - General Adult Medical Decision Making [51]yo patient w/ hx of depression presenting for worsening depression and agressive behavior. HDS, exam within normal limit Thoughts are linear and organized, and the patient has no AH/VH, or HI. Clinically the patient displays no overt toxidrome; they are well appearing, with low suspicion for toxic ingestion given history and exam. Symptoms unlikely 2/2 anemia, hypothyroidism, infection, or ICH. Workup: CBC, CMP, Lipase, salicylate/tylenol, UDS Lab findings: wnl [1:45pm] On reassessment, labs and workup wnl. Patient is hemodynamically stable with no acute medical complaints. Case discussed with psychiatric provider Dr. Briones at [facility] psych inpatient with recommendation for admission Disposition: Psych Lab Data : 03/26/22 11:36 03/26/22 11:36 Laboratory Results WBC 8.6 10^3/uL (4.0-10.0) 03/26/22 11:36 RBC 4.48 10^6/uL (4.1-5.3) 03/26/22 11:36 Hgb 15.5 g/dL (11.7-16.6) 03/26/22 11:36 Hct 45.0 % (42.0-52.0) 03/26/22 11:36 MCV 100.4 fl (80-94) H 03/26/22 11:36 MCH 34.6 pg (28.0-34.0) H 03/26/22 11:36 MCHC 34.4 g/dL (30.0-36.0) 03/26/22 11:36 RDW 12.9 % (12.1-15.1) 03/26/22 11:36 Plt Count 196 10^3/cmm (130-400) 03/26/22 11:36 MPV 8.9 fL (7.4-10.4) 03/26/22 11:36 Neut % (Auto) 61.4 % 03/26/22 11:36 Lymph % (Auto) 21.8 % 03/26/22 11:36 [place] % (Auto) 10.6 % 03/26/22 11:36 Eos % (Auto) 4.9 % 03/26/22 11:36 Baso % (Auto) 1.0 % 03/26/22 11:36 Neut # (Auto) 5.28 10^3/uL (1.8-7.7) 03/26/22 11:36 Lymph # (Auto) 1.9 10^3/uL (0.8-4.8) 03/26/22 11:36 [place] # (Auto) 0.9 10^3/uL (0.2-0.9) 03/26/22 11:36 Eos # (Auto) 0.4 10^3/uL (0.0-0.8) 03/26/22 11:36 Baso # (Auto) 0.1 10^3/uL (0.0-0.1) 03/26/22 11:36 Nucleated RBC % (auto) 0 % 03/26/22 11:36 Nucleated RBCs # 0.0 /100WBC 03/26/22 11:36 Sodium 138 mmol/L (136-145) 03/26/22 11:36 Potassium 4.3 mmol/L (3.5-5.1) 03/26/22 11:36 Chloride 104 mmol/L (98-107) 03/26/22 11:36 Carbon Dioxide 20 mmol/L (22-29) L 03/26/22 11:36 Anion Gap 18.3 (5-19) 03/26/22 11:36 BUN 9 mg/dL (6-20) 03/26/22 11:36 Creatinine 0.9 mg/dL (0.7-1.2) 03/26/22 11:36 GFR Calculation 89.3 mL/min (90-130) L 03/26/22 11:36 Glucose 87 mg/dL (65-115) 03/26/22 11:36 Calculated Osmolality 284 mOsm/kg (285-295) L 03/26/22 11:36 Calcium 9.0 mg/dL (8.5-10.5) 03/26/22 11:36 Total Bilirubin 0.4 mg/dL (0.15-1.2) 03/26/22 11:36 AST 37 U/L (0-40) 03/26/22 11:36 ALT 18 U/L (0-41) 03/26/22 11:36 Alkaline Phosphatase 47 IU/L (40-130) 03/26/22 11:36 Total Protein 6.8 g/dL (6.6-8.7) 03/26/22 11:36 Albumin 4.4 g/dL (3.5-5.2) 03/26/22 11:36 Globulin 2.4 g/dL (1.3-4.6) 03/26/22 11:36 Lipase 40 U/L (13-60) 03/26/22 11:36 Salicylates < 0.3 mg/dL (3-10) L 03/26/22 11:36 Urine Opiates Screen Negative ng/mL (Negative) 03/26/22 11:44 Acetaminophen < 5.0 ug/mL (10-30) L 03/26/22 11:36 Ur Barbiturates Screen Negative ng/mL (Negative) 03/26/22 11:44 Ur Phencyclidine Scrn Negative ng/mL (Negative) 03/26/22 11:44 Ur Amphetamines Screen Negative ng/mL (Negative) 03/26/22 11:44 U Benzodiazepines Scrn Negative ng/mL (Negative) 03/26/22 11:44 Urine Cocaine Screen Negative ng/mL (Negative) 03/26/22 11:44 U Marijuana (THC) Screen Negative ng/mL (Negative) 03/26/22 11:44 Discharge Plan Discharge Clinical Impression: Aggressive behavior, Depression Condition: Stable Prescriptions: No Action loratadine 10 mg tablet 10 mg PO DAILY Qty: 90 0RF lisinopril 20 mg tablet 20 mg PO DAILY Qty: 30 5RF sertraline 100 mg tablet 100 mg PO DAILY Qty: 30 1RF Referrals: Bebo Jimenez MD [Primary Care Provider] - Coding Level of Care Code ED Coverage Specialist for Chg Fwd Exam Comprehensive
[2022-03-26 11:59] LABS: Alanine Aminotransferase 18 U/L (0-41); Albumin Level 4.4 g/dL (3.5-5.2); Alkaline Phosphatase 47 IU/L (40-130); Anion Gap 18.3 (5-19); Aspartate Amino Transferase 37 U/L (0-40); Blood Urea Nitrogen 9 mg/dL (6-20); Carbon Dioxide 20 mmol/L (22-29); Chloride 104 mmol/L (98-107); Globulin 2.4 g/dL (1.3-4.6); Glomerular Filtration Rate 89.3 mL/min (90-130); Glucose 87 mg/dL (65-115); Lipase 40 U/L (13-60); Osmolality Calculated 284 mOsm/kg (285-295); Potassium 4.3 mmol/L (3.5-5.1); Sodium 138 mmol/L (136-145); Total Bilirubin 0.4 mg/dL (0.15-1.2); Total Protein 6.8 g/dL (6.6-8.7)
[2022-03-26 12:02] LABS: Acetaminophen < 5.0 ug/mL (10-30); Salicylate < 0.3 mg/dL (3-10)
[2022-03-26 12:02] LABS: Amphetamines Screen Urine Negative (Negative); Barbiturates Screen Urine Negative (Negative); Benzodiazepines Screen Urine Negative (Negative); Cocaine Screen Urine Negative (Negative); Opiate Screen Urine Negative (Negative); PCP Screen Urine Negative (Negative); THC Screen Urine Negative (Negative)
[2022-03-26 12:04] VITALS: BP 137/80; PULSE 86; RESP 18; O2SAT 95
[2022-03-26 17:02] VITALS: BP 145/82; PULSE 97; RESP 17; TEMP 36.6; O2SAT 98
[2022-03-26 17:48] LABS: Alcohol Level 122 mg/dL (0-10)
[2022-03-26 22:00] VITALS: BP 138/84; PULSE 79; RESP 17; O2SAT 98
[2022-03-27 06:00] VITALS: BP 152/95; PULSE 74; RESP 16; TEMP 36.5; O2SAT 96
[2022-03-27] MEDS: lisinopril 20 mg Tablet PO (08:46)
[2022-03-27] MEDS: folic acid 1 mg Tablet PO (08:46)
[2022-03-27] MEDS: thiamine 100 mg Tablet PO (08:46)
[2022-03-27] MEDS: multivitamin therapeutic Tablet 1 TAB PO (08:46)
[2022-03-27] MEDS: loratadine 10 mg Tablet PO (08:46)
[2022-03-27] MEDS: sertraline 100 mg Tablet PO (08:47)
[2022-03-27] MEDS: nicotine 4 mg lozenge MUCOUS MEM (09:55)
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
[2022-03-27 13:14] VITALS: BP 131/83; PULSE 92; RESP 15; TEMP 36.6; O2SAT 98
[2022-03-27] MEDS: acetaminophen 325 mg Tablet 650 MG PO (19:15)
--- NOTE | 2022-03-27 19:16 | PC.NURSE ---
Patient with c/o headache rated 5. Tylenol 650 mg po given for this.
[2022-03-27 19:31] VITALS: BP 132/79; PULSE 86; RESP 16; TEMP 36.6; O2SAT 98
[2022-03-28 06:00] VITALS: BP 147/89; PULSE 87; RESP 16; TEMP 36.6; O2SAT 98; BMI 23.0
[2022-03-28] MEDS: thiamine 100 mg Tablet PO (09:23)
[2022-03-28] MEDS: lisinopril 20 mg Tablet PO (09:23)
[2022-03-28] MEDS: loratadine 10 mg Tablet PO (09:24)
[2022-03-28] MEDS: multivitamin therapeutic Tablet 1 TAB PO (09:24)
[2022-03-28] MEDS: folic acid 1 mg Tablet PO (09:24)
[2022-03-28] MEDS: sertraline 100 mg Tablet 150 MG PO (09:43)
--- NOTE | 2022-03-28 09:44 | PC.NURSE ---
scheduled Zoloft given as ordered, unable to scan med, pharmacy contacted. 5 rights verified with second nurse Carlie SRINIVASAN. 150 mg given as ordered (1.5 tablets)
[2022-03-28 13:57] VITALS: BP 135/81; PULSE 76; RESP 16; TEMP 36.5; O2SAT 97
--- NOTE | 2022-03-28 14:06 | W.PM.NPUPNS ---
Subjective NPU Subjective: Patient is 51 year old white male admitted with increased anger with threats to harm self and reports of increased agitation in the home environment with a history of inpatient hospitalization in the distant past and reports of Generalized Anxiety Disorder. He reports no side effects from the increase in zoloft to 150mg in am. He did report concern about not being able to manage his anger at home and reports that 's son was a trigger with his conduct behavior. Patient reports that he has blacked out in the past when becoming angry. Staff notes patient has been polite, redirectable and has not been verbally or physically aggressive on the NPU. Mental Status Exam MSE Comments: This is a well nourished, well developed white male in hospital scrubs with a somewhat lamont complexion and adequate grooming and eye contact. No abnormal movements. Cooperative with exam in no acute distress. Speech was normal rate and volume. Mood described as okay, affect appeared somewhat restricted in range. Thought process, organized. Thought content: patient denies suicidal or homicidal ideation, no delusions reported or noted, and denies auditory or visual hallucinations. Attention and concentration are intact and memory appeared reliable though none were formally tested. He is alert and oriented three times. Insight is limited. Judgment is fair. Impulse control is limited. Vitals/I&O/Wt Last Vital Signs Temp 97.7 F 03/28/22 13:57 Pulse 76 03/28/22 13:57 Resp 16 03/28/22 13:57 BP 135/81 03/28/22 13:57 Pulse Ox 97 03/28/22 13:57 Weight last 48 hrs Weight 58.967 kg Data NPU : 03/26/22 11:36 03/26/22 11:36 A&P Assessment and plan (1) Aggressive behavior: Status: Acute (2) Depression: Status: Acute (3) Generalized anxiety disorder: Status: Acute (4) Impulse control disorder: Status: Acute Plan 1. Engage patient in milieu/individual/group therapy 2. Start Risperidone .5mg at night to target aggression 3. Continue zoloft at 150mg in am (increased yesterday) 4. TO-15 minute observations. Involuntary Hold Information 96 Hour Hold: 96 Hour Involuntary Admission: No Attestations NPU Medical Necessity Statement*: Inpatient hospitalization is medically necessary and the clinically appropriate intervention at this time. We will monitor medications and make changes as indicated. Patient's likely length of stay is three to five days. Coding Level of Care Code Established Pt Acute Folder Seamer Automatic for Chg Fwd Patient Type Established History Problem Focused Exam Problem Focused Medical Decision Making Straight Forward Diagnoses Aggressive behavior R46.89 Depression F32.A Generalized anxiety disorder F41.1 Impulse control disorder F63.9
[2022-03-28] MEDS: risperiDONE 1 mg Tablet 0.5 MG PO (20:38)
[2022-03-28 21:05] VITALS: BP 128/91; PULSE 78; RESP 16; TEMP 36.6; O2SAT 97
[2022-03-29 06:00] VITALS: BP 108/72; PULSE 85; RESP 15; TEMP 36.6; O2SAT 97
[2022-03-29] MEDS: sertraline 50 mg Tablet 150 MG PO (08:07)
[2022-03-29] MEDS: loratadine 10 mg Tablet PO (08:07)
[2022-03-29] MEDS: thiamine 100 mg Tablet PO (08:07)
[2022-03-29] MEDS: lisinopril 20 mg Tablet PO (08:07)
[2022-03-29] MEDS: folic acid 1 mg Tablet PO (08:07)
[2022-03-29] MEDS: multivitamin therapeutic Tablet 1 TAB PO (08:07)
--- NOTE | 2022-03-29 10:31 | W.PM.NPUPNS ---
Subjective NPU Subjective: Patient is 51 year old white male admitted with increased anger with threats to harm self and reports of increased agitation in the home environment with a history of inpatient hospitalization in the distant past and reports of Generalized Anxiety Disorder. He reports no side effects from the increase in zoloft to 150mg in am and reports that he slept better with addition of risperidal. He was pleasant and redirectable on the unit. No evidence of verbal or physical aggression. He reports no problems with managing anger here and reports that he is motivated to fix his anger problem through therapy and with medications. Mental Status Exam MSE Comments: This is a well nourished, well developed white male in hospital scrubs with a somewhat lamont complexion and adequate grooming and eye contact. No abnormal movements. Cooperative with exam in no acute distress. Speech was normal rate and volume. Mood described as better. Affect appeared brighter today. Thought process appeared organized and goal directed. Thought content: the patient denies suicidal or homicidal ideation. no delusions reported or noted, and denies auditory or visual hallucinations. Attention and concentration are grossly intact and memory appeared adequate. He is alert and oriented three times. Insight remains guarded. Judgment is fair. Impulse control is limited. Vitals/I&O/Wt Last Vital Signs Temp 97.8 F 03/29/22 14:00 Pulse 85 03/29/22 14:00 Resp 15 03/29/22 14:00 BP 108/72 03/29/22 14:00 Pulse Ox 97 03/29/22 14:00 Weight last 48 hrs Weight 58.967 kg Data NPU : 03/26/22 11:36 03/26/22 11:36 A&P Assessment and plan (1) Impulse control disorder: Status: Acute (2) Generalized anxiety disorder: Status: Acute (3) Aggressive behavior: Status: Acute (4) Depression: Status: Acute Plan Plan 1.? Engage patient in milieu/individual/group therapy 2.? Increase Risperidone to .75mg at night to target aggression 3.? Continue zoloft at 150mg in am (increased yesterday) 4.? TO-15 minute observations.? Involuntary Hold Information 96 Hour Hold: 96 Hour Involuntary Admission: No Attestations NPU Medical Necessity Statement*: Inpatient hospitalization is medically necessary and the clinically appropriate intervention at this time. We will monitor medications and make changes as indicated. Patient's likely? length of stay is 2-3 days. Coding Level of Care Code Established Pt Acute Library Services Dean for Chg Fwd Patient Type Established History Problem Focused Exam Problem Focused Medical Decision Making Straight Forward Diagnoses Impulse control disorder F63.9 Generalized anxiety disorder F41.1 Aggressive behavior R46.89 Depression F32.A
[2022-03-29 14:00] VITALS: BP 108/72; PULSE 85; RESP 15; TEMP 36.6; O2SAT 97
--- NOTE | 2022-03-29 15:17 | DCPLANNER ---
clinical program manager had message to refer patient to [facility] for walk in services. Patient was admitted to the inpatient unit. clinical program manager emailed Roderick social media designer in the NPU. clinical program manager asked social media designer to make sure to give patient the information for [facility] services upon discharge.
[2022-03-29 20:03] VITALS: BP 134/84; PULSE 73; RESP 17; TEMP 36.7; O2SAT 98
[2022-03-29] MEDS: risperiDONE 1 mg Tablet 0.5 MG PO (20:29)
[2022-03-30 05:59] VITALS: BP 131/78; PULSE 76; RESP 16; TEMP 36.6; O2SAT 96
[2022-03-30] MEDS: loratadine 10 mg Tablet PO (08:40)
[2022-03-30] MEDS: multivitamin therapeutic Tablet 1 TAB PO (08:40)
[2022-03-30] MEDS: lisinopril 20 mg Tablet PO (08:40)
[2022-03-30] MEDS: thiamine 100 mg Tablet PO (08:40)
[2022-03-30] MEDS: folic acid 1 mg Tablet PO (08:40)
[2022-03-30] MEDS: sertraline 50 mg Tablet 150 MG PO (08:40)
--- NOTE | 2022-03-30 12:13 | W.PM.NPUPNS ---
Subjective NPU Subjective: Patient is 51 year old white male admitted with increased anger with threats to harm self and reports of increased agitation in the home environment with a history of inpatient hospitalization in the distant past and reports of Generalized Anxiety Disorder. Patient was seen in the afternoon accompanied with his live-in today. She reported that she felt that Chepe had been feeling better. He reported no side effects from the change in Zoloft or Risperdal. He reports that he has been feeling calmer. He reported no feelings of hopelessness. He reported interest in receiving help for anger management. There is no evidence of verbal or physical aggression by the patient on the unit. He reports no side effects from the increase in zoloft to 150mg in am nor any side effects from risperidone .75mg at night and reports that he slept better with addition of risperidal.? He was pleasant and redirectable on the unit.?No alcohol withdrawal symptoms reported. Mental Status Exam MSE Comments: This is a well nourished, well developed white male in hospital scrubs with a somewhat lamont complexion and adequate grooming and eye contact. No abnormal movements. Cooperative with exam in no acute distress. Speech was normal rate and volume. Mood described as better. ? Affect appeared brighter today. Thought process appeared organized and goal directed. ? Thought content: the patient denies suicidal or homicidal ideation. ? no delusions reported or noted, and denies auditory or visual hallucinations. Attention and concentration are grossly intact and memory appeared adequate.? He is alert and oriented three times. Insight remains guarded.? Judgment is fair. Impulse control is limited. Vitals/I&O/Wt Last Vital Signs Temp 98.1 F 03/30/22 14:00 Pulse 89 03/30/22 14:00 Resp 18 03/30/22 14:00 BP 108/68 03/30/22 14:00 Pulse Ox 98 03/30/22 14:00 Data NPU : 03/26/22 11:36 03/26/22 11:36 A&P Assessment and plan (1) Impulse control disorder: Status: Acute (2) Generalized anxiety disorder: Status: Acute (3) Aggressive behavior: Status: Acute (4) Depression: Status: Acute (5) COVID: Status: Acute Plan Plan 1.? Engage patient in milieu/individual/group therapy 2.? Increase Risperidone to 1mg at night to target aggression 3.? Continue zoloft at 150mg in am (increased yesterday) 4.? TO-15 minute observations.? 5. Consider discharge home with tommogagan. Involuntary Hold Information 96 Hour Hold: 96 Hour Involuntary Admission: No Attestations NPU Medical Necessity Statement*: Inpatient hospitalization is medically necessary and the clinically appropriate intervention at this time. We will monitor medications and make changes as indicated. Patient's likely? length of stay is 2-3 days.? Coding Level of Care Code Established Pt Acute Product Support Technician for Chg Fwd Patient Type Established History Problem Focused Exam Problem Focused Medical Decision Making Straight Forward Diagnoses Impulse control disorder F63.9 Generalized anxiety disorder F41.1 Aggressive behavior R46.89 Depression F32.A COVID U07.1
[2022-03-30 14:00] VITALS: BP 108/68; PULSE 89; RESP 18; TEMP 36.7; O2SAT 98
[2022-03-30 19:37] VITALS: BP 126/81; PULSE 79; RESP 20; TEMP 36.7; O2SAT 97
[2022-03-30] MEDS: nicotine 4 mg lozenge MUCOUS MEM (20:19)
[2022-03-30] MEDS: risperiDONE 1 mg Tablet 0.5 MG PO (20:19)
[2022-03-31 06:00] VITALS: BP 123/83; PULSE 88; RESP 18; TEMP 37.1; O2SAT 96
[2022-03-31] MEDS: nicotine 4 mg lozenge MUCOUS MEM (07:01)
[2022-03-31] MEDS: folic acid 1 mg Tablet PO (08:55)
[2022-03-31] MEDS: loratadine 10 mg Tablet PO (08:55)
[2022-03-31] MEDS: multivitamin therapeutic Tablet 1 TAB PO (08:55)
[2022-03-31] MEDS: lisinopril 20 mg Tablet PO (08:55)
[2022-03-31] MEDS: sertraline 50 mg Tablet 150 MG PO (08:55)
[2022-03-31] MEDS: thiamine 100 mg Tablet PO (08:55)
--- NOTE | 2022-03-31 11:47 | DCPLANNER ---
IMM completed on 03/31/22 @ 1122. Pt was given a copy of rights and he stated he understood rights.
[2022-03-31 15:57] VITALS: BP 123/83; PULSE 88; RESP 18; TEMP 37.1; O2SAT 96
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
== END 2022-03-31 16:16 | disposition home or self-care (01) | DRG 886 ==
LOC: ER 13:13 → NP 15:27
PROVIDERS: Admitting Provider Psychiatry & Neurology Psychiatry; Emergency Provider Emergency Medicine; PCP Family Medicine Adult Medicine; Visit Provider Psychiatry & Neurology Psychiatry
DX: F63.9 Impulse disorder, unspecified (principal); F32.A Depression, unspecified; F41.1 Generalized anxiety disorder; F17.210 Nicotine dependence, cigarettes, uncomplicated; Z81.8 Family history of other mental and behavioral disorders; Z62.810 Personal history of physical and sexual abuse in childhood; Z86.16 Personal history of COVID-19
CPT/HCPCS: 80053; 80306; 80307; 83690; 85025; 97150; 97165; 99285

== ENCOUNTER 2022-05-12 16:39 | Emergency (ER) | payer MEDICARE, SELFPAY ==
[2022-05-12 17:01] VITALS: BP 152/90; PULSE 98; RESP 16; TEMP 36.7; O2SAT 96
--- NOTE | 2022-05-12 17:05 | ED_ITS ---
HPI - Animal Bite General: Chief Complaint: Animal Bite Stated Complaint: Bit by a mouse Time Seen by Provider: 05/12/22 17:05 History of Present Illness: 51-year-old male patient comes in today for concerns of a mouse bite to the right index finger. Patient had caught a mouse on a glue trap and was attempting to remove the mouse from the trap when it bit him. Patient came in for evaluation of injury and concern for infection. Patient appears nontoxic. Patient appears no pain. Associated symptoms: Deny fever(s) Review of Systems Const: Denies: fever(s) Skin/Breast: Reports: other (Mouse bite) FORMERLY [facility], [facility] ED PFSH: Medical History (Updated 05/12/22 @ 17:32 by AKANKSHA Mcgrath) Allergic rhinitis due to allergen Anxiety disorder Benign familial tremor Chronic back pain greater than 3 months duration CKD (chronic kidney disease) stage 2, GFR 60-89 ml/min Left kidney only since in 1987 right nephrectomy for kidney stones. 02/28/2020 creatinine 1.3 and 02/04/22 creatinine 1.1 with a GFR of 71 COVID Positive test COVID 10/08/21 Elevated blood pressure reading in office with diagnosis of hypertension Encounter for long-term use of opiate analgesic Hypertension Kidney stones Opioid contract exists Psychiatric care Single kidney Subacromial bursitis of right shoulder joint Surgical History H/O arthroscopic knee surgery H/O circumcision H/O colonoscopy 5 years ago H/O esophagogastroduodenoscopy History of nephrectomy, right 1987 due to kidney stones History of partial surgical removal of colon Hx of cholecystectomy Status post left inguinal hernia repair (03/05/20) Family History Other Diabetes Denies family history of CAD (coronary artery disease) Anesthesia complication Bleeding disorder Cancer Social History Smoking and tobacco status: current every day smoker cigarettes Packs smoked per day: 0.25 Alcohol intake: current Alcohol intake frequency: 0-2 Drinks per Day Household members: other Details: room mate Marital status: Single Number of children: 0 Current occupational status: employed and disabled History of recent travel: No Physical Exam Const: COMMON NORMALS: alert HENMT: COMMON NORMALS: normocephalic HEAD & SCALP: normocephalic Neck/C-Spine: COMMON NORMALS: full ROM Resp: COMMON NORMALS: normal respiratory effort Extremity: LEFT UPPER EXTREMITY: Yes hand & digits (Superficial injury to the left index finger) Neuro: SENSORIUM/ORIENTATION: Yes alert Skin: TRAUMA: puncture (Superficial injury left index finger.) Course Vital Signs: Vital signs: Vital Signs Temperature 98.0 F 05/12/22 17:01 Pulse Rate 98 05/12/22 17:01 Respiratory Rate 16 05/12/22 17:01 Blood Pressure 152/90 05/12/22 17:01 Pulse Oximetry 96 05/12/22 17:01 Oxygen Delivery Me thod 05/12/22 17:01 MDM - Animal Bite Medical Decision Making 51-year-old male patient comes in today for injury to the left index finger. Patient received a bite from a mouse that had got caught on the glue trap. Patient has normal tendon function. No foreign body is noted. Distal cap refill is intact. Patient cannot recall last tetanus shot. Differential diagnosis includes need for prophylaxis antibiotic, need for prophylaxis tetanus, animal bite, foreign body. No signs of foreign body was noted. Wound is superficial. Reviewed the risk for nonrat rodents having a very minimal to no risk for rabies. Patient reported understanding and did not want to go ahead with rabies vaccines. Patient's tetanus shot was updated. And patient was started on clindamycin for prophylaxis antibiotic. Patient reported understanding of care plan and need for follow-up or return to the ER. Discharge Plan Discharge Patient Disposition: Home Clinical Impression: Bitten by other rodent, initial encounter Condition: Stable Prescriptions: New clindamycin HCl 300 mg capsule 300 mg PO BID 7 Days Qty: 14 0RF No Action loratadine 10 mg tablet 10 mg PO DAILY Qty: 90 0RF lisinopril 20 mg tablet 20 mg PO DAILY Qty: 30 5RF sertraline 100 mg tablet See Rx Instructions .ROUTE .COMPLEX Qty: 30 3RF Dose Instruction: TAKE 1 TABLET BY MOUTH EVERY DAY FOR mental health Rx Instructions: TAKE 1 TABLET BY MOUTH EVERY DAY FOR mental health risperidone 1 mg Tablet 0.5 mg PO BEDTIME 30 Days Qty: 45 1RF Vitamin B-1 (mononitrate) 100 mg Tablet 100 mg PO DAILY Qty: 30 1RF Discharge Orders: Discharge ED (Routine); Ordered 05/12/22 Ordered By: Hubert Mcfarland Referrals: Bebo Jimenez MD [Primary Care Provider] - Discharge Diet: Usual diet Discharge Activity: Increase activity as tolerated Patient Instructions: Animal Bite (ED) Activity Restrictions/Additional Instructions: Home and rest. Watch site of animal bite for redness and swelling along with high fever. Return to ER for new concerns. Drink plenty of water with medication. Follow-up with primary care in 1 week for recheck. Return to ER for new concerns. Coding Level of Care Code ED Automation Manager for Erich Vallecillo
[2022-05-12] MEDS: tetanus-dipt-pertussis 0.5 mL SDV IM (17:41)
[2022-05-12] MEDS: clindamycin 150 mg Capsule 300 MG PO (17:41)
== END 2022-05-12 17:46 | disposition home or self-care (01) ==
PROVIDERS: Emergency Provider Nurse Practitioner Family; PCP Family Medicine Adult Medicine
DX: S61.250A Open bite of right index finger without damage to nail, initial encounter (principal); W53.01XA Bitten by mouse, initial encounter; Z23 Encounter for immunization
CPT/HCPCS: 90471; 90715; 99283

== ENCOUNTER 2022-09-13 11:28 | Emergency (ER) | payer OTHER, SELFPAY ==
[2022-09-13 13:39] VITALS: BP 158/91; PULSE 95; RESP 13; TEMP 36.4; O2SAT 100
--- NOTE | 2022-09-13 15:14 | XRR_ITS ---
PROCEDURE INFORMATION: Exam: XR Lumbosacral Spine Exam date and time: 09/13/2022 3:41 PM Age: 52 years old Clinical indication: Injury or trauma; Fall; Blunt trauma (contusions or hematomas); Injury details: Fell on ice; Prior surgery; Surgery type: RT kidney, gb, colon; Additional info: Pain, trauma TECHNIQUE: Imaging protocol: Radiologic exam of the lumbosacral spine. Views: 2 or 3 views. COMPARISON: CR XR lumbar spine 2-3V* [id number] 12/20/2016 10:13 AM FINDINGS: Bones/joints: At least mild L2-S1 degenerative change with loss of disc space and osteophyte formation with advanced L4-S1 facet DJD. No acute fracture. Soft tissues: Unremarkable. Organs: Absent gallbladder. Right lower quadrant clip as well. XR/XR lumbar spine 2-3V* [id number] IMPRESSION: 1. No acute finding noted. 2. [id number] lower lumbar degenerative change.
[2022-09-13] MEDS: orphenadrine 30 mg/mL Inj 2 mL 60 MG IM (15:40)
[2022-09-13] MEDS: ketorolac 60 mg/2 mL INJ IM (15:40)
--- NOTE | 2022-09-17 15:31 | ED_ITS ---
HPI - Back Pain/Injury General: Chief Complaint: Back Pain/Injury Stated Complaint: Slipped on ice Time Seen by Provider: 09/13/22 14:59 History of Present Illness: Patient is a 52-year-old man that presents to the emergency department with complaints of low back pain. Onset of symptoms when he slipped and fell at work. He denies striking his head or loss of consciousness. Patient states he was able to get up on his own accord and continue working but pain slowly worsened. Denies saddle paresthesias, weakness in lower extremities, pain that radiates down lower extremity Associated symptoms: Deny abdominal pain, chills, difficulty walking, dysuria, fatigue, fever(s), hematuria, nausea, urinary urgency or vomiting Review of Systems General: Reports: 10 or more systems reviewed and unremarkable except in HPI and below Const: Denies: fever(s), chills, change in appetite, change in weight, fatigue or malaise Eyes: Denies: change in vision, eye discomfort, eye discharge or eye redness ENMT: Denies: throat pain, enlarged tonsils, odynophagia, hoarseness, ear or mastoid pain, ear discharge, change in hearing, tinnitus, nasal discharge, nasal congestion, post nasal drip or sinus pain Card: Denies: chest pain, palpitations, irregular heart rhythm, edema, dyspnea on exertion, orthopnea or leg pain with exertion Resp: Denies: dyspnea, productive cough, non-productive cough, wheezing, stridor or chest congestion GI: Denies: abdominal pain, nausea, vomiting, dysphagia, diarrhea, constipation, bloating, GI cramping or hematochezia : Denies: flank pain, dysuria, urinary frequency, urinary urgency, urinary hesitancy, oliguria or hematuria Musc: Denies: neck pain, back pain, extremity pain, joint pain, joint swelling, joint redness, joint warmth or muscle weakness Skin/Breast: Denies: rash, pruritus, erythema, photosensitivity or new lesions Neuro: Denies: headache(s), numbness in extremities, weakness in extremities, sensory changes, lack of coordination, difficulty walking, frequent falls, dizziness, confusion, Slurred speech present, difficulty communicating thoughts, seizure-like activity or involuntary movements Endo: Denies: polyuria, polydipsia or tired all the time Nicolás/Lymph: Denies: easy bruising or easy bleeding [facility] ED PFSH: Medical History (Updated 09/13/22 @ 17:03 by TATYANA Amanda) Allergic rhinitis due to allergen Anxiety disorder Benign familial tremor Chronic back pain greater than 3 months duration CKD (chronic kidney disease) stage 2, GFR 60-89 ml/min Left kidney only since in 1987 right nephrectomy for kidney stones. 02/28/2020 creatinine 1.3 and 02/04/22 creatinine 1.1 with a GFR of 71 COVID Positive test COVID 10/08/21 Encounter for long-term use of opiate analgesic History of alcohol abuse 06/04/2022 admits to 6-7 beers daily History of diverticulosis Hypertension Kidney stones Opioid contract exists Pericardial effusion without cardiac tamponade Psychiatric care Single kidney Surgical History H/O arthroscopic knee surgery H/O circumcision H/O colonoscopy 5 years ago H/O esophagogastroduodenoscopy History of nephrectomy, right 1987 due to kidney stones History of partial surgical removal of colon Hx of cholecystectomy Status post left inguinal hernia repair (03/05/20) Family History Other Diabetes Denies family history of CAD (coronary artery disease) Anesthesia complication Bleeding disorder Cancer Social History Smoking and tobacco status: current every day smoker (1ppd) cigarettes Packs smoked per day: 0.25 Alcohol intake: current Alcohol intake frequency: 0-2 Drinks per Day Caregiver/support person: No Lives independently: Yes Household members: friend(s) and other Details: room mate Marital status: Single Number of children: 0 service: No Current occupational status: employed and disabled History of recent travel: No Current gender identity: Male Special eladio needs: No Physical Exam Const: COMMON NORMALS: no acute distress, average body habitus, patient oriented x3, no limitations, healthy appearing, alert and well nourished GENERAL APPEARANCE: cooperative, comfortable and well developed; not in distress and not anxious ORIENTATION/CONSCIOUSNESS: Yes awake, Yes oriented to person, Yes oriented to place and Yes oriented to time HENMT: COMMON NORMALS: normocephalic, atraumatic, hearing grossly normal bilaterally, external ears normal, EAC's normal, TM's normal bilaterally, Normal external nose present and Normal nasal mucous membranes and turbinates present HEAD & SCALP: normal to inspection, normocephalic and atraumatic FACE & SINUS: normal facial exam and face symmetric NOSE: Normal external nose present, Normal nares present and Normal nasal mucous membranes and turbinates present GENERAL EAR: hearing not grossly impaired EXTERNAL EAR: Yes external ears normal and Yes no periauricular adenopathy EXTERNAL AUDITORY CANAL: EAC's normal TYMPANIC MEMBRANE: TM's normal bilaterally MOUTH: Normal oral and palatal mucosa present, lip normal, tongue normal and Normal salivary glands and ducts present THROAT: posterior oropharynx normal, tonsils normal and uvula midline Eye: COMMON NORMALS: Equal, round and reactive pupils present, EOMs intact bilaterally, conjunctivae normal, no scleral icterus and no papilledema GENERAL EYE: appearance normal, both eyes and all related structures ALIGNMENT: Yes alignment normal PERIORBITAL: periorbital findings normal EYELID: eyelids normal CONJUNCTIVA: Yes conjunctivae normal PUPIL: Yes Equal, round and reactive pupils present DIRECT OPHTHALMOSCOPY: Yes no papilledema Neck/C-Spine: COMMON NORMALS: full ROM, supple, no meningeal signs and no JVD GENERAL: Yes normal visual inspection CERVICAL SPINE: Yes cervical ROM normal Lymph: LYMPHATIC: no lymphadenopathy noted Chest: COMMONS NORMALS: normal inspection of the chest Breast/axilla inspection: Yes no chest deformity, asymmetry, normal contours, no nodules, masses, tenderness Resp: COMMON NORMALS: normal respiratory effort, No retractions, No use of accessory muscles and clear to auscultation bilaterally EFFORT & INSPECTION: Yes able to speak in complete sentences, Yes symmetric chest movement, No abnormal respiratory pattern, No tachypneic and No respiratory distress AUSCULTATION: clear to auscultation bilaterally Cardio: COMMON NORMALS: no JVD, regular rate, regular rhythm and Peripheral pulses 2+ throughout RATE: regular rate RHYTHM: regular rhythm PERIPHERAL PULSES: Peripheral pulses 2+ throughout GI: COMMON NORMALS: Normal to inspection, nondistended, normoactive bowel sounds present, Soft to palpation and non-tender INSPECTION: Yes normal to inspection PALPATION: Yes Soft to palpation : COMMON NORMALS: Yes no CVA tenderness BLADDER/KIDNEY EXAM: Yes no CVA tenderness and Yes CVA tenderness Back/Pelvis: COMMON NORMALS: no CVA tenderness, thoracic and lumbar spine normal to inspection, no thoracic nor lumbar tenderness, thoraco-lumbar ROM normal and straight leg raise negative bilaterally GENERAL BACK: Yes CVA tenderness and No ecchymosis THORACIC SPINE/UPPER BACK: Yes normal to inspection LUMBAR SPINE/LOWER BACK: Yes normal to inspection and Yes straight leg raise negative bilaterally OTHER: LungLumbar back pain Tenderness to palpation along the paraspinous muscle or spine Denies radiation of pain Pain is reproducible with movement 5/5 strength bilateral lower extremities including hip flexor, quad, gastroc, EHL/FHL Sensation grossly intact to bilateral lower extremities 2+ reflex Extremity: COMMON NORMALS: normal to inspection, full ROM and capillary refill normal GENERAL: Yes normal exam except as noted Neuro: COMMON NORMALS: patient oriented x3 SENSORIUM/ORIENTATION: Yes alert, Yes oriented to person, Yes oriented to place and Yes oriented to time MENINGEAL SIGNS: Yes no meningeal signs Psych: COMMON NORMALS: mental status grossly normal, Normal thought process present, cooperative, normal affect, speech normal and activity/motor behavior normal SPEECH: Yes normal speech THOUGHT PROCESS: Normal thought process present Skin: COMMON NORMALS: no rashes or lesions noted, no wounds, turgor normal, no jaundice, no petechiae and no mottling GENERAL SKIN EXAM: no rashes or lesions noted and turgor normal Course Vital Signs: Vital signs: Vital Signs Temperature 97.6 F 09/13/22 13:39 Pulse Rate 95 09/13/22 13:39 Respiratory Rate 13 09/13/22 13:39 Blood Pressure 158/91 09/13/22 13:39 Pulse Oximetry 100 09/13/22 13:39 Oxygen Delivery Mt thod 09/13/22 13:39 MDM - Back Pain/Injury Medical Decision Making Differential diagnosis includes fracture, subluxation, effusion, foraminal narrowing, central canal narrowing, cauda equina, muscle spasm Patient was evaluated in the emergency department for lumbar back pain. Patient reports that he slipped on ice falling to the ground landing on his buttocks. Patient is tender over the paraspinous muscles of the lumbar spine I did obtain a lumbar x-ray which reveals no acute findings but mild to moderate lower lumbar degenerative changes and mild spondylolisthesis. Degenerative changes include disc space narrowing and degenerative joint disease. Did treat his pain in the emergency department with Robaxin and Toradol. P atient's symptoms did improve somewhat. He will be discharged home with prescriptions and will need to follow-up with his primary care doctor. This time no further diagnostics are warranted. Questions sought and answered Labs Radiology Impressions Lumbar Spine X-Ray 09/13/22 15:14 IMPRESSION: 1. No acute finding noted. 2. [id number] lower lumbar degenerative change. Discharge Plan Discharge Patient Disposition: Home Clinical Impression: Back pain, Spondylolisthesis Condition: Stable Prescriptions: New methocarbamol 500 mg tablet 500 mg PO Q6H Qty: 30 0RF diclofenac sodium 50 mg tablet,delayed release (DR/EC) 50 mg PO BID Qty: 20 0RF No Action sertraline 150 mg capsule 150 mg PO DAILY Qty: 90 1RF loratadine 10 mg tablet 10 mg PO DAILY Qty: 90 1RF lisinopril 20 mg tablet 20 mg PO DAILY Qty: 90 1RF risperidone 1 mg Tablet 0.5 mg PO BEDTIME 30 Days Qty: 45 1RF Vitamin B-1 (mononitrate) 100 mg Tablet 100 mg PO DAILY Qty: 30 1RF Discharge Orders: Discharge ED (Routine); Ordered 09/13/22 Ordered By: Darius Browne Referrals: Bebo Jimenez MD [Primary Care Provider] - Discharge Diet: Advance as tolerated Discharge Activity: Resume usual activity Patient Instructions: Low Back Strain (ED), Acute Low Back Pain (ED), Lower Back Exercises (ED), Opioid Safety, Pain Management Activity Restrictions/Additional Instructions: These return to the emergency department for new, concerning, worsening symptoms. Stand Alone Forms: Work/School Release Coding Level of Care Code ED Prize Fighter for Erich Vallecillo
== END 2022-09-13 17:19 | disposition home or self-care (01) ==
PROVIDERS: Emergency Provider Nurse Practitioner; PCP Family Medicine Adult Medicine
DX: M43.10 Spondylolisthesis, site unspecified (principal); F17.210 Nicotine dependence, cigarettes, uncomplicated; Z90.5 Acquired absence of kidney; I12.9 Hypertensive chronic kidney disease with stage 1 through stage 4 chronic kidney disease, or unspecified chronic kidney disease; N18.2 Chronic kidney disease, stage 2 (mild)
CPT/HCPCS: 72100; 96372; 99284; J1885; J2360

== ENCOUNTER 2022-12-05 10:18 | Emergency (ER) | payer OTHER, SELFPAY ==
[2022-12-05] VITALS (8 sets, daily range): BP systolic 136–162; BP diastolic 73–116; PULSE 94–103; RESP 16; TEMP 37.1; O2SAT 95–99
--- NOTE | 2022-12-05 10:21 | XRR_ITS ---
PROCEDURE INFORMATION: Exam: XR Chest Exam date and time: 12/05/2022 10:34 AM Age: 52 years old Clinical indication: Cough and shortness of breath; Additional info: Cough, SOB TECHNIQUE: Imaging protocol: Radiologic exam of the chest. Views: 1 view. COMPARISON: CR XR chest 1V [id number] 05/23/2019 12:41 AM FINDINGS: Lungs: Lungs are clear. Pleural spaces: There is no pleural effusion or pneumothorax. Heart/Mediastinum: Cardiomediastinal contours are unremarkable. Bones/joints: Bones are unremarkable. XR/XR chest 1V portable [id number] IMPRESSION: No acute findings.
--- NOTE | 2022-12-05 10:27 | W.ED.URI ---
HPI - URI/Sore Throat General: Chief Complaint: Shortness of Breath/Dyspnea Stated Complaint: Cough, Congestion, SOB Time Seen by Provider: 12/05/22 10:21 Source: patient Mode of arrival: ambulatory Limitations: no limitations History of Present Illness: 52-year-old male states that over the last 4 to 5 days he been having cough congestion with some body aches and low-grade fevers. States he is a chronic smoker does have a history of COPD he is in no distress here he is able speak in full senses pulse ox is normal. He denies any worsening improving factors he has had some sick contacts with similar Associated symptoms: Deny abdominal pain, chills, chest pain, diarrhea, fever(s), headache(s), nausea or vomiting Review of Systems Const: Denies: fever(s), chills, body aches or change in appetite Eyes: Denies: blurry vision or eye discomfort ENMT: Denies: throat pain or dental pain Card: Denies: chest pain Resp: Reports: non-productive cough and chest congestion GI: Denies: abdominal pain, nausea, vomiting or diarrhea : Denies: dysuria Musc: Denies: neck pain or back pain Skin/Breast: Denies: rash Neuro: Denies: headache(s) Psych: Denies: depression Nicolás/Lymph: Denies: easy bruising All/Imm: Denies: urticaria PFSH ED PFSH: Medical History Allergic rhinitis due to allergen Anxiety disorder Benign familial tremor Chronic back pain greater than 3 months duration CKD (chronic kidney disease) stage 2, GFR 60-89 ml/min Left kidney only since in 1987 right nephrectomy for kidney stones. 02/28/2020 creatinine 1.3 and 02/04/22 creatinine 1.1 with a GFR of 71 COVID Positive test COVID 10/08/21 Encounter for long-term use of opiate analgesic History of alcohol abuse 06/04/2022 admits to 6-7 beers daily History of diverticulosis Hypertension Kidney stones Opioid contract exists Pericardial effusion without cardiac tamponade Psychiatric care Single kidney Surgical History H/O arthroscopic knee surgery H/O circumcision H/O colonoscopy 5 years ago H/O esophagogastroduodenoscopy History of nephrectomy, right 1987 due to kidney stones History of partial surgical removal of colon Hx of cholecystectomy Status post left inguinal hernia repair (03/05/20) Family History Other Diabetes Denies family history of CAD (coronary artery disease) Anesthesia complication Bleeding disorder Cancer Social History Smoking and tobacco status: current every day smoker (1ppd) cigarettes Packs smoked per day: 0.25 Alcohol intake: current Alcohol intake frequency: 0-2 Drinks per Day Caregiver/support person: No Lives independently: Yes Household members: friend(s) and other Details: room mate Marital status: Single Number of children: 0 service: No Current occupational status: employed and disabled Current gender identity: Male Special eladio needs: No Physical Exam Const: COMMON NORMALS: no acute distress, patient oriented x3 and healthy appearing HENMT: COMMON NORMALS: normocephalic and atraumatic HEAD & SCALP: normocephalic and atraumatic THROAT: posterior oropharynx normal Eye: COMMON NORMALS: Equal, round and reactive pupils present and EOMs intact bilaterally PUPIL: Yes Equal, round and reactive pupils present Neck/C-Spine: COMMON NORMALS: full ROM and supple Chest: COMMONS NORMALS: normal inspection of the chest and normal palpation of entire chest wall Resp: COMMON NORMALS: normal respiratory effort, No retractions, No use of accessory muscles and clear to auscultation bilaterally AUSCULTATION: clear to auscultation bilaterally Cardio: COMMON NORMALS: regular rate, regular rhythm and No murmurs present (Cardio) RATE: regular rate RHYTHM: regular rhythm GI: COMMON NORMALS: Normal to inspection, nondistended, normoactive bowel sounds present, Soft to palpation, non-tender and no masses PALPATION: Yes Soft to palpation Extremity: COMMON NORMALS: normal to inspection and full ROM Neuro: COMMON NORMALS: patient oriented x3, moves all extremities and no focal motor deficits Psych: COMMON NORMALS: mental status grossly normal, Normal thought process present and cooperative THOUGHT PROCESS: Normal thought process present Skin: COMMON NORMALS: no rashes or lesions noted and no wounds GENERAL SKIN EXAM: no rashes or lesions noted Course Vital Signs: Vital signs: Vital Signs Temperature 98.7 F 12/05/22 10:29 Pulse Rate 94 12/05/22 11:15 Respiratory Rate 16 12/05/22 11:11 Blood Pressure 158/116 12/05/22 10:29 Pulse Oximetry 97 12/05/22 11:11 Oxygen Delivery Me thod 12/05/22 11:11 MDM - URI/Sore Throat Medical Decision Making Patient presents with cough congestion likely viral upper respiratory infection he feels improved after breathing treatment he is given a dose of Decadron as well COVID flu are negative no pneumonia he is in no distress he is stable for discharge she is to return if worsening follow-up with PCP. Lab Data Radiology Impressions Chest X-Ray 12/05/22 10:21 IMPRESSION: No acute findings. Laboratory Results Influenza Type A Ag negative (Negative) 12/05/22 10:59 Influenza Type B Ag negative (Negative) 12/05/22 10:59 SARS-CoV-2 Ag (Rapid) negative (Negative) 12/05/22 10:59 Discharge Plan Discharge Patient Disposition: Home Clinical Impression: Upper respiratory infection Condition: Stable Prescriptions: No Action fluticasone propionate [Flonase Allergy Relief] 50 mcg/actuation spray,suspension 1 spray intranasal BID Qty: 16 0RF Rx Instructions: administer into each nostril Discharge Orders: Discharge ED (Routine); Ordered 12/05/22 Ordered By: Chuy Ling Referrals: Bebo Jimenez MD [Primary Care Provider] - 1-3 days Discharge Diet: Advance as tolerated Discharge Activity: Resume usual activity Patient Instructions: Upper Respiratory Infection (ED) Coding Level of Care Code ED Transportation Services Representative for Erich Vallecillo
[2022-12-05] MEDS: dexamethasone 10 mg/mL INJ IM (10:54)
[2022-12-05] MEDS: albuterol 2.5 mg/3 mL Neb INHALATION (11:12)
[2022-12-05 11:24] LABS: Influenza A by IFA negative (Negative); Influenza B by IFA negative (Negative); SARS Covid-2 Antigen negative (Negative)
== END 2022-12-05 11:49 | disposition home or self-care (01) ==
PROVIDERS: Emergency Provider Emergency Medicine; PCP Family Medicine Adult Medicine
DX: J06.9 Acute upper respiratory infection, unspecified (principal); Z20.822 Contact with and (suspected) exposure to COVID-19; F17.210 Nicotine dependence, cigarettes, uncomplicated; I12.9 Hypertensive chronic kidney disease with stage 1 through stage 4 chronic kidney disease, or unspecified chronic kidney disease; N18.2 Chronic kidney disease, stage 2 (mild)
CPT/HCPCS: 71045; 87426; 87804; 94640; 96372; 99284; J1100; J7613

== ENCOUNTER → 2023-03-12 10:35 | Outpatient (BNVA) | payer MEDICARE, OTHER, SELFPAY | PROVIDERS: PCP Family Medicine Adult Medicine; Visit Provider Registered Nurse Neonatal Intensive Care | DX: R05.9 Cough, unspecified (principal); J40 Bronchitis, not specified as acute or chronic | CPT/HCPCS: 87426 ==

== ENCOUNTER → 2023-09-02 12:01 | Outpatient (BNVA) | payer MEDICARE, OTHER, SELFPAY | PROVIDERS: PCP Family Medicine Adult Medicine; Visit Provider Family Medicine Adult Medicine | DX: I10 Essential (primary) hypertension (principal); Z00.00 Encounter for general adult medical examination without abnormal findings | CPT/HCPCS: 80053; 84443; 85025; G0103 ==

== ENCOUNTER 2024-01-25 08:18 | Emergency (ER) | payer MEDICARE, SELFPAY ==
[2024-01-25 08:28] VITALS: BP 142/94; PULSE 89; RESP 16; TEMP 36.6; O2SAT 96
[2024-01-25] MEDS: orphenadrine 30 mg/mL Inj 2 mL 60 MG IM (08:35)
[2024-01-25] MEDS: dexamethasone 10 mg/mL INJ IM (08:35)
[2024-01-25] MEDS: ketorolac 60 mg/2 mL INJ IM (08:35)
--- NOTE | 2024-01-25 08:53 | ED_ITS ---
HPI - Back Pain/Injury General: Chief Complaint: Back Pain/Injury Stated Complaint: back pain Time Seen by Provider: 01/25/24 08:23 Source: patient Mode of arrival: ambulatory History of Present Illness: 53-year-old male presents to the emergen cy room with complaint of back pain. He was in a car for a long period of time over the weekend his back started hurting 2 days ago progressively worsening until this morning when he has difficult time standing up and standing straight he has some radiation into the proximal of the back pain into the proximal left thigh. No fecal incontinence or urinary retention or saddle paresthesias MD elicited complaint: back pain Pertinent past history: prior back pain Associated symptoms: Deny abdominal pain, chills, dysuria, fever(s) or urinary urgency Review of Systems Const: Denies: fever(s) or chills Card: Denies: chest pain Resp: Denies: dyspnea GI: Denies: abdominal pain : Denies: dysuria, urinary frequency or urinary urgency Musc: Denies: neck pain or back pain Skin/Breast: Denies: rash PFSH ED PFSH: Medical History Psychiatric care Asthma-COPD overlap syndrome Health care maintenance Osteoarthritis involving multiple joints on both sides of body Bee sting allergy History of alcohol abuse 06/04/2022 admits to 6-7 beers daily History of diverticulosis COVID Positive test COVID 10/08/21 CKD (chronic kidney disease) stage 2, GFR 60-89 ml/min Left kidney only since in 1987 right nephrectomy for kidney stones. 02/28/2020 creatinine 1.3 and 02/04/22 creatinine 1.1 with a GFR of 71 Allergic rhinitis due to allergen Single kidney Benign familial tremor Anxiety disorder Hypertension Pericardial effusion without cardiac tamponade Kidney stones Opioid contract exists Encounter for long-term use of opiate analgesic Chronic back pain greater than 3 months duration Surgical History Status post left inguinal hernia repair (03/05/20) H/O circumcision H/O colonoscopy 5 years ago Hx of cholecystectomy H/O esophagogastroduodenoscopy History of nephrectomy, right 1987 due to kidney stones History of partial surgical removal of colon H/O arthroscopic knee surgery Family History Other Diabetes Denies family history of CAD (coronary artery disease) Anesthesia complication Bleeding disorder Cancer Social History Smoking and tobacco/nicotine status: current every day tobacco/nicotine user ( 1ppd) cigarettes Packs smoked per day: 0.25 Alcohol intake: current Alcohol intake frequency: 0-2 Drinks per Day Substance/Drug Use: never Caregiver/support person: No Lives independently: Yes Household members: friend(s) and other Details: room mate Marital status: Single Number of children: 0 service: No Current occupational status: employed and disabled Do you think of yourself as: Straight/Heterosexual Current gender identity: Male Special eladio needs: No Physical Exam Const: GENERAL APPEARANCE: cooperative and comfortable ORIENTATION/CONSCIOUSNESS: Yes awake, Yes oriented to person, Yes oriented to place and Yes oriented to time HENMT: COMMON NORMALS: normocephalic, atraumatic and hearing grossly normal bilaterally HEAD & SCALP: normocephalic and atraumatic Resp: COMMON NORMALS: normal respiratory effort, No retractions, No use of accessory muscles and clear to auscultation bilaterally AUSCULTATION: clear to auscultation bilaterally Cardio: COMMON NORMALS: regular rate, regular rhythm and No murmurs present (Cardio) RATE: regular rate RHYTHM: regular rhythm GI: COMMON NORMALS: Soft to palpation and No hepatosplenomegaly present AUSCULTATION: Yes normoactive bowel sounds PALPATION: Yes Soft to palpation, No Tenderness to palpation present (GI), No Guarding due to palpation present (GI) and Yes No hepatosplenomegaly present Extremity: COMMON NORMALS: normal to inspection, capillary refill normal, no clubbing, cyanosis or edema, no calf tenderness and no pedal edema OTHER: straight leg raising is negative Neuro: SENSORIUM/ORIENTATION: Yes oriented to person, Yes oriented to place and Yes oriented to time Skin: COMMON NORMALS: no rashes or lesions noted GENERAL SKIN EXAM: no rashes or lesions noted Course Vital Signs: Vital signs: Vital Signs Temperature 97.9 F 01/25/24 08:28 Pulse Rate 92 01/25/24 11:39 Respiratory Rate 16 01/25/24 11:39 Blood Pressure 136/87 01/25/24 11:39 Pulse Oximetry 93 01/25/24 11:39 MDM - Back Pain/Injury Medical Decision Making Musculoskeletal back pain improved with medications given improvement with medicines given. Will discharge patient home on prednisone taper tizanidine and diclofenac follow-up with primary care if not improving. No red flag symptoms at this time. Medical Records I reviewed the patient's medical records. Labs I reviewed the patient's lab results. No radiology studies performed this visit Discharge Plan Discharge Patient Disposition: Home Clinical Impression: Strain of lumbar region, Lumbar radiculopathy Condition: Stable Prescriptions: New tizanidine 4 mg tablet 4 mg PO Q6H PRN (Reason: muscle spasticity) Qty: 20 0RF Rx Instructions: do not exceed 3 doses per 24 hrs prednisone 20 mg tablet 20 mg PO TID Qty: 15 0RF Rx Instructions: 1 p.o. 3 times daily x3 days, 1 p.o. twice daily x2 days, 1 p.o. daily x2 days diclofenac sodium 75 mg tablet,delayed release (DR/EC) 75 mg PO Q12H PRN (Reason: pain) Qty: 20 0RF No Action epinephrine [EpiPen] 0.3 mg/0.3 mL auto-injector 0.3 mg IM Q4H PRN (Reason: anaphylaxis) Qty: 2 2RF lisinopril 10 mg tablet 10 mg PO DAILY Qty: 90 1RF Discharge Orders: Discharge ED (Routine); Ordered 01/25/24 Ordered By: Filemon Beverly Referrals: Bebo Jimenez MD [Primary Care Provider] - Discharge Diet: Usual diet Discharge Activity: Resume usual activity Patient Instructions: Opioid Safety, Pain Management Activity Restrictions/Additional Instructions: Thank you for choosing [facility] for your healthcare needs today. Please realize this is an emergency room and that we are providing you with a medical screening exam and this may not be complete and all inclusive of all the testing and or work up that you may need to determine your ailment or severity of your illness. It is very important that you follow up as instructed or that you return to the Emergency Department should you have concerns or if your condition changes or worsens in any way. Follow-up with your primary care doctor if you have persistent back pain Stand Alone Forms: Work/School Release Coding Level of Care Code ED Entry Level Accounting Clerk for Erich Vallecillo
[2024-01-25 11:39] VITALS: BP 136/87; PULSE 92; RESP 16; O2SAT 93
== END 2024-01-25 11:39 | disposition home or self-care (01) ==
PROVIDERS: Emergency Provider Family Medicine; PCP Family Medicine Adult Medicine
DX: S39.012A Strain of muscle, fascia and tendon of lower back, initial encounter (principal); M54.16 Radiculopathy, lumbar region; F17.210 Nicotine dependence, cigarettes, uncomplicated; I12.9 Hypertensive chronic kidney disease with stage 1 through stage 4 chronic kidney disease, or unspecified chronic kidney disease; N18.2 Chronic kidney disease, stage 2 (mild); J44.9 Chronic obstructive pulmonary disease, unspecified; X50.9XXA Other and unspecified overexertion or strenuous movements or postures, initial encounter
CPT/HCPCS: 96372; 99284; J1100; J1885; J2360

== ENCOUNTER 2024-03-27 09:10 | Emergency (ER) | payer MEDICARE, SELFPAY ==
[2024-03-27 09:18] VITALS: BP 108/72; PULSE 103; RESP 18; TEMP 36.6; O2SAT 99; BMI 24.6
--- NOTE | 2024-03-27 10:42 | W.ED.BACK ---
HPI - Back Pain/Injury General: Chief Complaint: Back Pain/Injury Stated Complaint: lower back pain leg pain Time Seen by Provider: 03/27/24 09:13 Source: patient Mode of arrival: ambulatory Limitations: no limitations History of Present Illness: Patient is a 53-year-old male who presents to ED today along with his significant other for evaluation of continued left lower back pain. Patient has had discomfort for approximately 2 months now. He was originally seen in our ED back in January for identical symptoms and was placed on anti-inflammatories, muscle relaxers, and steroids. He then followed up with his primary care provider. Patient feels like pain is never fully went away. He states he got up today to try to go to work but had to leave secondary to pain. He states pain is in his left lower back with radiation into his left buttock and down his left leg. He is not having any saddle anesthesia or fecal incontinence/urinary retention. He has not noticed any color or temperature changes to the leg. Denies numbness, tingling, loss of sensation. MD elicited complaint: back pain Timing: constant Severity: severe Pain scale (0-10): 12 Similar Symptoms Previously: Yes Quality: burning and sharp Location: left lower back Radiation: buttocks and left leg below the knee Exacerbating factors: movement and walking Relieving factors: none Associated symptoms: Reports difficulty walking (secondary to back pain); Deny abdominal pain, chills, dysuria, fatigue, fever(s) or hematuria Treatments prior to arrival: NSAIDS Work related injury: No Review of Systems Const: Denies: fever(s), chills, body aches, fatigue or malaise Card: Denies: chest pain Resp: Denies: dyspnea GI: Denies: abdominal pain : Denies: flank pain, dysuria or hematuria Musc: Reports: back pain; Denies: neck pain, extremity pain, extremity swelling, joint pain, joint swelling, joint redness or joint warmth Skin/Breast: Denies: rash Neuro: Reports: difficulty walking (secondary to back pain); Denies: headache(s), numbness in extremities, weakness in extremities or sensory changes PFS ED PFSH: Medical History Psychiatric care Asthma-COPD overlap syndrome Health care maintenance Osteoarthritis involving multiple joints on both sides of body Bee sting allergy History of alcohol abuse 06/04/2022 admits to 6-7 beers daily History of diverticulosis COVID Positive test COVID 10/08/21 CKD (chronic kidney disease) stage 2, GFR 60-89 ml/min Left kidney only since in 1987 right nephrectomy for kidney stones. 02/28/2020 creatinine 1.3 and 02/04/22 creatinine 1.1 with a GFR of 71 Allergic rhinitis due to allergen Single kidney Benign familial tremor Anxiety disorder Hypertension Pericardial effusion without cardiac tamponade Kidney stones Opioid contract exists Encounter for long-term use of opiate analgesic Chronic back pain greater than 3 months duration Surgical History Status post left inguinal hernia repair (03/05/20) H/O circumcision H/O colonoscopy 5 years ago Hx of cholecystectomy H/O esophagogastroduodenoscopy History of nephrectomy, right 1987 due to kidney stones History of partial surgical removal of colon H/O arthroscopic knee surgery Family History Other Diabetes Denies family history of CAD (coronary artery disease) Anesthesia complication Bleeding disorder Cancer Social History Smoking and tobacco/nicotine status: current every day tobacco/nicotine user cigarettes Packs smoked per day: 0.25 Alcohol intake: current Alcohol intake frequency: 0-2 Drinks per Day Substance/Drug Use: never Caregiver/support person: No Lives independently: Yes Household members: friend(s) and other Details: room mate Marital status: Single Number of children: 0 service: No Current occupational status: employed and disabled Do you think of yourself as: Straight/Heterosexual Current gender identity: Male Special eladio needs: No Physical Exam Const: COMMON NORMALS: average body habitus, patient oriented x3, no limitations, healthy appearing, alert and well nourished GENERAL APPEARANCE: cooperative ORIENTATION/CONSCIOUSNESS: Yes awake, Yes oriented to person, Yes oriented to place and Yes oriented to time Neck/C-Spine: COMMON NORMALS: full ROM CERVICAL SPINE: No Cervical spine tenderness Resp: COMMON NORMALS: normal respiratory effort GI: COMMON NORMALS: Normal to inspection, nondistended, normoactive bowel sounds present, Soft to palpation, non-tender and no masses PALPATION: Yes Soft to palpation : COMMON NORMALS: Yes no CVA tenderness BLADDER/KIDNEY EXAM: Yes no CVA tenderness Back/Pelvis: COMMON NORMALS: no CVA tenderness and thoracic and lumbar spine normal to inspection THORACIC SPINE/UPPER BACK: Yes thoracic ROM normal, No thoracic spinal tenderness and No paraspinal muscle tenderness LUMBAR SPINE/LOWER BACK: No lumbar spinal tenderness and No paraspinal muscle spasm PELVIS: Yes sciatic notch tenderness on the left SACROILIAC JOINTS: Yes SI joint(s) abnormal SI joint details: tender to palpation (L) SACRUM: no tenderness COCCYX: no tenderness Extremity: COMMON NORMALS: normal to inspection, full ROM, capillary refill normal, no joint enlargement, no clubbing, cyanosis or edema, no calf tenderness and no pedal edema GENERAL: Yes normal exam except as noted Neuro: COMMON NORMALS: patient oriented x3, moves all extremities, no focal motor deficits and no sensory deficits noted SENSORIUM/ORIENTATION: Yes alert, Yes oriented to person, Yes oriented to place and Yes oriented to time Skin: COMMON NORMALS: no rashes or lesions noted GENERAL SKIN EXAM: no rashes or lesions noted Course Vital Signs: Vital signs: Vital Signs Temperature 97.8 F 03/27/24 09:18 Pulse Rate 103 H 03/27/24 09:18 Respiratory Rate 20 H 03/27/24 10:55 Blood Pressure 129/80 03/27/24 11:15 Pulse Oximetry 99 03/27/24 10:55 Oxygen Delivery Me thod Room Air 03/27/24 09:18 MDM - Back Pain/Injury Medical Decision Making Patient feeling better after medications given here. He has a left-sided sciatica-like pain. Recommend he continue his anti-inflammatory and muscle relaxers as he has been doing. Will place him on steroids. Recommend he follow-up with primary care. No red flags on patient's history or physical exam. Return to ED precautions given. Differential Diagnosis Likely lumbar radiculopathy, sciatica and strain of lumbar region Medical Records I reviewed the patient's medical records. No radiology studies performed this visit Discharge Plan Discharge Patient Disposition: Home Clinical Impression: Left sided sciatica Condition: Stable Prescriptions: New Medrol (Cody) 4 mg tablets,dose pack See Rx Instructions .ROUTE .COMPLEX Qty: 21 0RF Rx Instructions: orally per package directions Continued diclofenac sodium 75 mg tablet,delayed release (DR/EC) 75 mg PO Q12H PRN (Reason: pain) Qty: 30 0RF tizanidine 4 mg tablet 4 mg PO Q6H PRN (Reason: muscle spasticity) Qty: 30 0RF Rx Instructions: do not exceed 3 doses per 24 hrs Discontinued prednisone 20 mg tablet 20 mg PO TID Qty: 15 0RF Rx Instructions: 1 p.o. 3 times daily x3 days, 1 p.o. twice daily x2 days, 1 p.o. daily x2 days No Action epinephrine [EpiPen] 0.3 mg/0.3 mL auto-injector 0.3 mg IM Q4H PRN (Reason: anaphylaxis) Qty: 2 2RF hydrocodone-acetaminophen 5-325 mg tablet 1 tab PO Q6H PRN (Reason: pain) 5 Days Qty: 20 0RF lisinopril 10 mg tablet 10 mg PO DAILY Qty: 90 1RF Discharge Orders: Discharge ED (Routine); Ordered 03/27/24 Ordered By: Abbey Beatty Referrals: Bebo Jimenez MD [Primary Care Provider] - Patient Instructions: Sciatica (ED), Sciatica Activity Restrictions/Additional Instructions: As we discussed please follow-up with your primary care provider for further evaluation and treatment of your lower back pain. 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
[2024-03-27] MEDS: orphenadrine 30 mg/mL Inj 2 mL 60 MG IM (10:54)
[2024-03-27 10:55] VITALS: RESP 20; O2SAT 99
[2024-03-27] MEDS: morphine 4 mg/mL SDV 1 mL IM (10:55)
[2024-03-27] MEDS: dexamethasone 10 mg/mL INJ 8 MG IM (10:55)
[2024-03-27 11:15] VITALS: BP 129/80
== END 2024-03-27 12:11 | disposition home or self-care (01) ==
PROVIDERS: Emergency Provider Physician Assistant; PCP Family Medicine Adult Medicine
DX: M54.42 Lumbago with sciatica, left side (principal); J44.89 Other specified chronic obstructive pulmonary disease; I12.9 Hypertensive chronic kidney disease with stage 1 through stage 4 chronic kidney disease, or unspecified chronic kidney disease; N18.2 Chronic kidney disease, stage 2 (mild); F17.210 Nicotine dependence, cigarettes, uncomplicated; Z79.899 Other long term (current) drug therapy
CPT/HCPCS: 96372; 99284; J1100; J2270; J2360

== ENCOUNTER 2024-03-28 13:36 | Outpatient (CLI) | payer MEDICARE, SELFPAY ==
--- NOTE | 2024-03-28 13:43 | XR_ITS ---
WS: [id number] Lumbar spine, 3 views, 03/28/2024 Clinical Data: back pain Comparison: Lumbar spine, 09/13/2022 Findings: No compression fractures or subluxation is seen. There is degenerative disc narrowing L4-L5 and L5-S1 . The transverse processes and SI joints are normal. There is anterior osteoarthritic spurring from L2-L5. There is facet joint arthritis at L4-5 and L5-S 1. There are clips in the right side of the abdomen adjacent to the lumbar vertebral bodies. XR/XR lumbar spine 2-3V* [id number] Impression: Degenerative disc narrowing at L4-L5 and L5-S1 with moderate osteoarthritis unc hanged.
== END 2024-03-28 13:37 | disposition home or self-care (01) ==
LOC: RAD 13:40
PROVIDERS: PCP Family Medicine Adult Medicine; Visit Provider Registered Nurse Neonatal Intensive Care
DX: M54.30 Sciatica, unspecified side (principal); M51.36 Other intervertebral disc degeneration, lumbar region; M25.78 Osteophyte, vertebrae; M47.896 Other spondylosis, lumbar region; M47.898 Other spondylosis, sacral and sacrococcygeal region
CPT/HCPCS: 72100

== ENCOUNTER → 2024-05-01 12:50 | Outpatient (BNVA) | payer MEDICARE, SELFPAY | PROVIDERS: PCP Family Medicine Adult Medicine; Visit Provider Orthopaedic Surgery | DX: M48.062 Spinal stenosis, lumbar region with neurogenic claudication (principal) | CPT/HCPCS: 72110; 99204 ==

== ENCOUNTER 2024-05-30 12:35 | Outpatient (CLI) | payer MEDICARE, SELFPAY ==
--- NOTE | 2024-05-30 13:00 | MR_ITS ---
WS: [id number] MRI LUMBAR SPINE NONCONTRAST HISTORY: back pain, LEFT lower extremity pain. COMPARISON: None available. TECHNIQUE: Sagittal and axial multisequence imaging is submitted. Normal lumbar alignment with no compression fractures or marrow edema. Disc spaces and vertebral body heights are well-preserved. Conus terminates normally at L1-2 disc level. L1-L2: Normal. L2-L3: Mild ligamentum flavum hypertrophy and facet joint arthritis. No stenosis. L3-L4: Mild annular disc bulging with mild ligamentum flavum and facet arthritis. There is slight monique rowing of the central canal but no significant stenosis. L4-L5: Diffuse annular disc bulging with osteophytic ridging. Moderate ligamentum flavum and facet ar thritis. There is disc contacting the traversing L5 nerve roots. There is also slight disc contact on the LEFT exiting L4 nerve root. Moderate to severe central with bilateral subarticular recess stenos is and mild LEFT foraminal stenosis. L5-S1: Mild annular disc bulging with a central disc protrusion. Central disc protrusion encroaches u tim the RIGHT S1 nerve root but does not displace it. Moderate facet joint arthropathy. Moderate bila teral foraminal stenosis. RIGHT kidney is not identified in the RIGHT renal bed. Correlate for possible RIGHT nephrectomy. MR/MR lumbar spine wo con* [id number] IMPRESSION: 1. L4-5: Moderate to severe central with bilateral subarticular recess and mil d LEFT foraminal stenosis. Disc contacts the traversing L5 nerve roots with sli ght contact on the LEFT exiting L4 nerve root. 2. L5-S1: Annular disc bulging with a central disc protrusion. Disc protrusion contacts the RIGHT S1 nerve root but does not displace it. Moderate bilateral foraminal stenosis. 3. L3-4: Mild narrowing of the central canal but no stenosis.
== END 2024-05-30 12:36 | disposition home or self-care (01) ==
LOC: RAD 12:36
PROVIDERS: PCP Family Medicine Adult Medicine; Visit Provider Orthopaedic Surgery
DX: M51.36 Other intervertebral disc degeneration, lumbar region (principal); M48.061 Spinal stenosis, lumbar region without neurogenic claudication
CPT/HCPCS: 72148

== ENCOUNTER → 2024-06-14 12:55 | Outpatient (BNVA) | payer MEDICARE, SELFPAY | PROVIDERS: PCP Family Medicine Adult Medicine; Visit Provider Orthopaedic Surgery | DX: M54.9 Dorsalgia, unspecified (principal); Z09 Encounter for follow-up examination after completed treatment for conditions other than malignant neoplasm | CPT/HCPCS: 99214 ==

== ENCOUNTER 2024-06-19 06:30 | Outpatient (RCR) | payer MEDICARE, SELFPAY | END 2024-07-19 23:59 | disposition home or self-care (01) | LOC: SPT 06:30 | PROVIDERS: Visit Provider Orthopaedic Surgery | DX: M54.50 Low back pain, unspecified (principal) | CPT/HCPCS: 97110; 97161 ==

== ENCOUNTER 2024-08-11 12:08 | Emergency (ER) | payer MEDICARE, SELFPAY ==
[2024-08-11 12:14] VITALS: BP 181/113; PULSE 116; RESP 17; TEMP 36.4; O2SAT 96; BMI 24.7
--- NOTE | 2024-08-11 12:25 | W.ED.BACK ---
HPI - Back Pain/Injury General: Chief Complaint: Back Pain/Injury Stated Complaint: pain from bottom of back down legs Time Seen by Provider: 08/11/24 12:14 History of Present Illness: 54-year-old male with history of low back pain. He presents emergency room today with worsening symptoms. He follows with Dr. Rajput. He was supposed to go to [place] for injections but cannot afford to go there and is having trouble driving because of the pain. He says he has been taking [id number] medications but no one has given him anything for the pain beyond this. No saddle numbness, no urinary retention or incontinence, no focal motor deficit, no sensory deficit. no recent fever. no cough. no shortness of breath. no chest pain. no abdominal pain. no nausea or vomiting. no dysuria. no altered mental status. no edema. Related Data Previous Rx's Medication Instructions Recorded epinephrine 0.3 mg/0.3 mL 0.3 mg (0.3 mL) IM Q4H PRN 02/18/23 injection, auto-injector (EpiPen) anaphylaxis #2 ea albuterol sulfate 90 mcg/actuation 2 puff inhalation Q6H PRN 07/17/24 aerosol inhaler (Ventolin HFA) shortness of breath or wheezing #8.5 grams azithromycin 250 mg tablet See Rx Instructions PO .COMPLEX #6 07/17/24 tabs methylprednisolone 4 mg tablets in See Rx Instructions PO PER PKG DIR 07/17/24 a dose pack (Medrol (Cody)) #21 ea cyclobenzaprine 10 mg tablet 10 mg PO Q8H PRN muscle spasm #20 08/11/24 tabs diclofenac sodium 50 mg 50 mg PO BID PRN pain #14 tabs 08/11/24 tablet,delayed release hydrocodone 5 mg-acetaminophen 325 1 tab PO Q8H PRN pain #14 tabs 08/11/24 mg tablet polyethylene glycol 3350 17 17 g PO DAILY #510 grams 08/11/24 gram/dose oral powder (Miralax) prednisone 20 mg tablet 60 mg (3 x 20 mg) PO DAILY #20 tabs 08/11/24 Allergies Allergy/AdvReac Type Severity Reaction Status Date / Time bee venom protein (honey bee) Allergy Unknown ALGY-Anaphy Verified 07/31/24 09:10 laxis Penicillins AdvReac Unknown ALGY-Swell Verified 07/17/24 11:52 Lip/Tongue/Throat tetracycline AdvReac Unknown ALGY-Anaphy Verified 07/17/24 11:52 laxis Review of Systems Narrative: Constitutional symptoms: Negative except as documented in HPI. Skin symptoms: Negative except as documented in HPI. Eye symptoms: Negative except as documented in HPI. ENMT symptoms: Negative except as documented in HPI. Respiratory symptoms: Negative except as documented in HPI. Cardiovascular symptoms: Negative except as documented in HPI. Gastrointestinal symptoms: Negative except as documented in HPI. Genitourinary symptoms: Negative except as documented in HPI. Musculoskeletal symptoms: Negative except as documented in HPI. Neurologic symptoms: Negative except as documented in HPI. Psychiatric symptoms: Negative except as documented in HPI. Endocrine symptoms: Negative except as documented in HPI. PFSH ED PFSH: Medical History (Updated 08/11/24 @ 12:23 by Su Malik MD) Elevated blood pressure reading in office with diagnosis of hypertension Sacroiliac inflammation left sided Psychiatric care Asthma-COPD overlap syndrome Health care maintenance Osteoarthritis involving multiple joints on both sides of body Bee sting allergy History of alcohol abuse 06/04/2022 admits to 6-7 beers daily History of diverticulosis COVID Positive test COVID 10/08/21 CKD (chronic kidney disease) stage 2, GFR 60-89 ml/min Left kidney only since in 1987 right nephrectomy for kidney stones. 02/28/2020 creatinine 1.3 and 02/04/22 creatinine 1.1 with a GFR of 71 Allergic rhinitis due to allergen Single kidney Benign familial tremor Anxiety disorder Hypertension Pericardial effusion without cardiac tamponade Kidney stones Opioid contract exists Encounter for long-term use of opiate analgesic Chronic back pain greater than 3 months duration Surgical History Status post left inguinal hernia repair (03/05/20) H/O circumcision H/O colonoscopy 5 years ago Hx of cholecystectomy H/O esophagogastroduodenoscopy History of nephrectomy, right 1987 due to kidney stones History of partial surgical removal of colon H/O arthroscopic knee surgery Family History Other Diabetes Denies family history of CAD (coronary artery disease) Anesthesia complication Bleeding disorder Cancer Social History Smoking and tobacco/nicotine status: never used tobacco/nicotine Alcohol intake: current Alcohol intake frequency: 0-2 Drinks per Day Substance/Drug Use: never Caregiver/support person: No Lives independently: Yes Household members: friend(s) and other Details: room mate Marital status: Single Number of children: 0 service: No Current occupational status: employed and disabled Do you think of yourself as: Straight/Heterosexual Current gender identity: Male Special eladio needs: No Physical Exam Narrative: EXAM NARRATIVE: General: Alert, no acute distress. Head: Normocephalic Neck: Trachea midline Eye: Extraocular movements are intact. Ears, nose, mouth and throat: Oral mucosa moist Respiratory: Respirations are non-labored Musculoskeletal: Normal ROM Back: no step off, no focal tenderness, some paraspinal muscle tenderness Neurological: Alert and oriented to person, place, time, and situation, No focal neurological deficit observed. Psychiatric: Cooperative, appropriate mood & affect. Course Vital Signs: Vital signs: Vital Signs Temperature 97.5 F L 08/11/24 12:14 Pulse Rate 116 H 08/11/24 12:14 Respiratory Rate 17 08/11/24 12:14 Blood Pressure 181/113 08/11/24 12:14 Pulse Oximetry 96 08/11/24 12:14 Oxygen Delivery Me thod Room Air 08/11/24 12:14 MDM - Back Pain/Injury Medical Decision Making Assessment and plan: Low back pain ?IM Toradol, IM Norflex, IM Decadron, p.o. [place]. - Discharged home - Discussed plan with patient. Answered any questions. - Evaluation and treatment of this problem were appropriate in the emergency setting. No radiology studies performed this visit Discharge Plan Discharge Patient Disposition: Home Clinical Impression: Sciatica Condition: Stable Prescriptions: New cyclobenzaprine 10 mg tablet 10 mg PO Q8H PRN (Reason: muscle spasm) Qty: 20 0RF hydrocodone-acetaminophen 5-325 mg tablet 1 tab PO Q8H PRN (Reason: pain) Qty: 14 0RF Rx Instructions: Take 1/2 to 1 tab every 8 hours as needed for pain prednisone 20 mg tablet 60 mg PO DAILY Qty: 20 0RF Rx Instructions: 3 tabs (60 mg) x 3 days. 2 tabs (40 mg) x 3 days. 1 tab (20 mg) x 3 days. 1/2 tab (10 mg) x 4 days diclofenac sodium 50 mg tablet,delayed release (DR/EC) 50 mg PO BID PRN (Reason: pain) Qty: 14 0RF polyethylene glycol 3350 [Miralax] 17 gram/dose powder 17 g PO DAILY Qty: 510 0RF Rx Instructions: Take 1 scoop daily while taking pain medications. No Action epinephrine [EpiPen] 0.3 mg/0.3 mL auto-injector 0.3 mg IM Q4H PRN (Reason: anaphylaxis) Qty: 2 2RF azithromycin 250 mg tablet See Rx Instructions PO .COMPLEX Qty: 6 0RF Rx Instructions: take 500 mg today (day 1), then 250 mg for 4 days (days 2-5) PO albuterol sulfate [Ventolin HFA] 90 mcg/actuation HFA aerosol inhaler 2 puff inhalation Q6H PRN (Reason: shortness of breath or wheezing) Qty: 8.5 0RF methylprednisolone [Medrol (Cody)] 4 mg tablets,dose pack See Rx Instructions PO PER PKG DIR Qty: 21 0RF Rx Instructions: PO PER PKG DIR Discharge Orders: Discharge ED (Routine); Ordered 08/11/24 Ordered By: Su Malik Referrals: Bebo Jimenez MD [Primary Care Provider] - Discharge Diet: Usual diet Discharge Activity: Increase activity as tolerated Patient Instructions: Back Pain (ED), Opioid Safety, Pain Management Activity Restrictions/Additional Instructions: Thank you for choosing [facility] for your healthcare needs today. Please realize this is an emergency room and that we are providing you with a medical screening exam and this may not be complete and all inclusive of all the testing and or work up that you may need to determine your ailment or severity of your illness. You have been screened and evaluated and felt safe for discharge. Health conditions do change or evolve sometimes and as such it is important that you follow up with your Primary Doctor to be re checked, 3-5 days is a general good time frame for follow up. 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
[2024-08-11] MEDS: dexamethasone 10 mg/mL INJ IM (12:50)
[2024-08-11] MEDS: ketorolac 60 mg/2 mL INJ IM (12:51)
[2024-08-11] MEDS: HYDROcodone-acetaminophen 5-325 mg Tablet 1 TAB PO (12:51)
[2024-08-11] MEDS: orphenadrine 30 mg/mL Inj 2 mL 60 MG IM (12:51)
[2024-08-11 13:30] VITALS: BP 148/98; PULSE 101; O2SAT 97
== END 2024-08-11 13:31 | disposition home or self-care (01) ==
PROVIDERS: Emergency Provider Emergency Medicine; PCP Family Medicine Adult Medicine
DX: M54.30 Sciatica, unspecified side (principal); I12.9 Hypertensive chronic kidney disease with stage 1 through stage 4 chronic kidney disease, or unspecified chronic kidney disease; N18.2 Chronic kidney disease, stage 2 (mild); J44.9 Chronic obstructive pulmonary disease, unspecified
CPT/HCPCS: 96372; 99284; J1100; J1885; J2360

== ENCOUNTER → 2024-08-28 13:50 | Outpatient (BNVA) | payer MEDICARE, SELFPAY | PROVIDERS: PCP Family Medicine Adult Medicine; Visit Provider Orthopaedic Surgery | DX: Z09 Encounter for follow-up examination after completed treatment for conditions other than malignant neoplasm (principal); M48.062 Spinal stenosis, lumbar region with neurogenic claudication | CPT/HCPCS: 99214 ==

== ENCOUNTER 2024-10-27 04:15 | Observation (INO) | payer MEDICARE, SELFPAY ==
[2024-10-27] VITALS (34 sets, daily range): BP systolic 112–196; BP diastolic 53–112; PULSE 108–136; RESP 16–46; TEMP 36.8–38.3; O2SAT 90–98; BMI 35.4
--- NOTE | 2024-10-27 04:48 | XRR_ITS ---
PROCEDURE INFORMATION: Exam: XR Chest Exam date and time: 10/27/2024 4:58 AM Age: 54 years old Clinical indication: Cough and fever; Prior surgery; Surgery date: 6+ months; Surgery type: Gb; Cough with fever; Additional info: Cough fever TECHNIQUE: Imaging protocol: Radiologic exam of the chest. Views: 1 view. COMPARISON: CR XR chest 1V portable [id number] 12/05/2022 10:34 AM FINDINGS: Lungs: Unremarkable. No consolidation. Pleural spaces: Unremarkable. No pleural effusion. No pneumothorax. Heart/Mediastinum: Unremarkable. No cardiomegaly. Bones/joints: Unremarkable. XR/XR chest 1V portable [id number] IMPRESSION: No acute findings.
--- NOTE | 2024-10-27 05:10 | ED_ITS ---
Documented by User: Harish Plaza DO 10/27/24 05:41 HPI - URI/Sore Throat 2 General: Chief Complaint: Upper Respiratory Infection Stated Complaint: Fever,Coughing,Chest Pain Time Seen by Provider: 10/27/24 05:09 History of Present Illness: Presents to the ER with complaints of shortness of breath body aching chest pain when he coughs this all started yesterday. Patient also had fever up to 101 yesterday. He says everyone in the house has been sick and is finally made it to him. Patient does have a history of asthma COPD and uses albuterol inhaler as needed. Related Data Home Medications ?Medication ?Instructions ?Recorded ?Confirmed lisinopril 10 mg tablet 10 mg PO DAILY 10/27/2405/13 Previous Rx's ?Medication ?Instructions ?Recorded epinephrine 0.3 mg/0.3 mL 0.3 mg (0.3 mL) IM Q4H PRN 0 02/18/23 injection, auto-injector (EpiPen) anaphylaxis #2 ea albuterol sulfate 90 mcg/actuation 2 puff inhalation Q 6H PRN 07/17/24 aerosol inhaler (Ventolin HFA) shortness of breath or wheezing #8.5 grams Allergies Allergy/AdvReac Type Severity Reaction Status Date / Time bee venom protein (honey bee) Allergy Unknown ALGY-Anaphy Verified 08/28/24 14:24 laxis Penicillins AdvReac Unknown ALGY-Swell Verified 08/28/24 14:24 Lip/Tongue/Throat tetracycline AdvReac Unknown ALGY-Anaphy Verified 08/28/24 14:24 laxis Review of Systems 2 General: Reports: 10 or more systems reviewed and unremarkable except in HPI and below PFSH ED 2 PFSH: Medical History Elevated blood pressure reading in office with diagnosis of hypertension Sacroiliac inflammation left sided Psychiatric care Asthma-COPD overlap syndrome Health care maintenance Osteoarthritis involving multiple joints on both sides of body Bee sting allergy History of alcohol abuse 06/04/2022 admits to 6-7 beers daily History of diverticulosis COVID Positive test COVID 10/08/21 CKD (chronic kidney disease) stage 2, GFR 60-89 ml/min Left kidney only since in 1987 right nephrectomy for kidney stones. 02/28/2020 creatinine 1.3 and 02/04/22 creatinine 1.1 with a GFR of 71 Allergic rhinitis due to allergen Single kidney Benign familial tremor Anxiety disorder Hypertension Pericardial effusion without cardiac tamponade Kidney stones Opioid contract exists Encounter for long-term use of opiate analgesic Chronic back pain greater than 3 months duration Surgical History Status post left inguinal hernia repair (03/05/20) H/O circumcision H/O colonoscopy 5 years ago Hx of cholecystectomy H/O esophagogastroduodenoscopy History of nephrectomy, right 1987 due to kidney stones History of partial surgical removal of colon H/O arthroscopic knee surgery Family History Other Diabetes Denies family history of CAD (coronary artery disease) Anesthesia complication Bleeding disorder Cancer Social History Smoking and tobacco/nicotine status: current every day tobacco/nicotine user cigarettes Packs smoked per day: 0.25 Alcohol intake: current Alcohol intake frequency: 0-2 Drinks per Day Substance/Drug Use: never Caregiver/support person: No Lives independently: Yes Household members: friend(s) and other Details: room mate Marital status: Single Number of children: 0 service: No Current occupational status: employed and disabled Do you think of yourself as: Straight/Heterosexual Current gender identity: Male Special eladio needs: No Physical Exam 2 Const: COMMON NORMALS: no acute distress, average body habitus, patient oriented x3, no limitations, healthy appearing, alert and well nourished HENMT: COMMON NORMALS: normocephalic, atraumatic, hearing grossly normal bilaterally, external ears normal and Normal external nose present HEAD & SCALP: normocephalic and atraumatic NOSE: Normal external nose present E XTERNAL EAR: Yes external ears normal Neck/C-Spine: COMMON NORMALS: no JVD Chest: COMMONS NORMALS: normal inspection of the chest and normal palpation of entire chest wall Resp: COMMON NORMALS: normal respiratory effort, No retractions and No use of accessory muscles; negative for clear to auscultation bilaterally (Occasional wheeze moderate rhonchi right lung) AUSCULTATION: not clear to auscultation bilaterally (Occasional wheeze moderate rhonchi right lung) Cardio: COMMON NORMALS: no JVD, regular rhythm, S1 normal heart sound present, S2 normal heart sound present, No clicks present (Cardio) and No murmurs present (Cardio); negative for regular rate (Tachycardic) RATE: abnormal rate (Tachycardic) RHYTHM: regular rhythm HEART SOUNDS: S1 normal heart sound present and S2 normal heart sound present GI: COMMON NORMALS: Normal to inspection, nondistended, normoactive bowel sounds present, Soft to palpation, non-tender, No hepatosplenomegaly present and no masses PALPATION: Yes Soft to palpation and Yes No hepatosplenomegaly present Neuro: COMMON NORMALS: patient oriented x3 SENSORIUM/ORIENTATION: Yes alert Course 2 Vital Signs: Vital signs: Vital Signs Temperature 100.8 F H 10/27/24 06:33 Pulse Rate 113 H 10/27/24 11:30 Respiratory Rate 28 H 10/27/24 11:30 Blood Pressure 141/91 10/27/24 11:30 Pulse Oximetry 92 10/27/24 10:15 Oxygen Delivery Me thod Room Air 10/27/24 07:52 MDM - URI/Sore Throat Medical Records I reviewed the patient's medical records. Lab Data I reviewed the patient's lab results. 10/27/24 06:50 10/27/24 06:50 Radiology Impressions Chest X-Ray 10/27/24 04:48 IMPRESSION: No acute findings. Laboratory Results WBC 7.40 10^3/uL (3.29-11.43) 10/27/24 06:50 RBC 4.47 10^6/uL (3.85-5.65) 10/27/24 06:50 Hgb 15.30 g/dL (11.27-16.99) 10/27/24 06:50 Hct 43.6 % (37-53) 10/27/24 06:50 MCV 97.5 fl (82-101) 10/27/24 06:50 MCH 34.2 pg (27-33) H 10/27/24 06:50 MCHC 35.1 g/dL (30-55) 10/27/24 06:50 RDW 12.8 % (12.1-15.1) 10/27/24 06:50 Plt Count 160 10^3/cmm (157-399) 10/27/24 06:50 MPV 8.6 fL (7.4-10.4) 10/27/24 06:50 Neut % (Auto) 74.1 % 10/27/24 06:50 Lymph % (Auto) 10.0 % 10/27/24 06:50 [place] % (Auto) 13.9 % 10/27/24 06:50 Eos % (Auto) 0.1 % 10/27/24 06:50 Baso % (Auto) 1.4 % 10/27/24 06:50 Neut # (Auto) 5.48 10^3/uL (1.8-7.7) 10/27/24 06:50 Lymph # (Auto) 0.7 10^3/uL (0.8-4.8) L 10/27/24 06:50 [place] # (Auto) 1.0 10^3/uL (0.2-0.9) H 10/27/24 06:50 Eos # (Auto) 0.0 10^3/uL (0.0-0.8) 10/27/24 06:50 Baso # (Auto) 0.1 10^3/uL (0.0-0.1) 10/27/24 06:50 Nucleated RBC % (auto) 0 % 10/27/24 06:50 Nucleated RBCs # 0.0 /100WBC 10/27/24 06:50 D-Dimer 1.19 ug/mLFEU (0-0.59) H 10/27/24 06:50 Sodium 130 mmol/L (136-145) L 10/27/24 06:50 Potassium 4.5 mmol/L (3.5-5.1) 10/27/24 06:50 Chloride 97 mmol/L (98-107) L 10/27/24 06:50 Carbon Dioxide 19 mmol/L (22-29) L 10/27/24 06:50 Anion Gap 18.5 (5-19) 10/27/24 06:50 BUN 6 mg/dL (6-20) 10/27/24 06:50 Creatinine 1.3 mg/dL (0.7-1.2) H 10/27/24 06:50 GFR Calculation 57.7 mL/min (90-130) L 10/27/24 06:50 Glucose 119 mg/dL (65-115) H 10/27/24 06:50 Calculated Osmolality 269 mOsm/kg (285-295) L 10/27/24 06:50 Lactic Acid 2.0 mmol/L (0.5-2.2) 10/27/24 06:50 Calcium 9.1 mg/dL (8.5-10.5) 10/27/24 06:50 Total Bilirubin 0.7 mg/dL (0.15-1.2) 10/27/24 06:50 AST 54 U/L (0-40) H 10/27/24 06:50 ALT 44 U/L (0-41) H 10/27/24 06:50 Alkaline Phosphatase 58 U/L (40-130) 10/27/24 06:50 Troponin T Baseline 18 ng/L (0-15) H 10/27/24 06:50 Total Protein 6.4 g/dL (6.6-8.7) L 10/27/24 06:50 Albumin 4.0 g/dL (3.5-5.2) 10/27/24 06:50 Globulin 2.4 g/dL (1.3-4.6) 10/27/24 06:50 Coronavirus (PCR) Negative (Negative) 10/27/24 04:45 Influenza A (PCR) Positive (Negative) 10/27/24 04:45 Influenza Type B (PCR) Negative (Negative) 10/27/24 04:45 RSV (PCR) Negative (Negative) 10/27/24 04:45 All radiology interpretation(s) finalized by discharge Discharge Plan Discharge Patient Disposition: Admitted As Inpatient Admit Provider: Isael Campbell Clinical Impression: Influenza, CKD (chronic kidney disease) stage 2, GFR 60-89 ml/min, Hypertension, Asthma-COPD overlap syndrome Condition: Stable Sign Out Sign Out Data: Patient Sign Out occurred on 10/27/24 at 06:20. Patient's care was discussed, and care was transferred from Harish Plaza DO to Filemon Beverly DO. Coding Level of Care Code ED Commissioned Fire Officer for Chg Fwd Documented by User: Filemon Beverly DO 10/27/24 11:43 HPI - URI/Sore Throat 2 General: Chief Complaint: Upper Respiratory Infection Stated Complaint: Fever,Coughing,Chest Pain Time Seen by Provider: 10/27/24 05:09 Related Data Home Medications ?Medication ?Instructions ?Recorded ?Confirmed lisinopril 10 mg tablet 10 mg PO DAILY 10/27/2405/13 Previous Rx's ?Medication ?Instructions ?Recorded epinephrine 0.3 mg/0.3 mL 0.3 mg (0.3 mL) IM Q4H PRN 0 02/18/23 injection, auto-injector (EpiPen) anaphylaxis #2 ea albuterol sulfate 90 mcg/actuation 2 puff inhalation Q 6H PRN 07/17/24 aerosol inhaler (Ventolin HFA) shortness of breath or wheezing #8.5 grams Allergies Allergy/AdvReac Type Severity Reaction Status Date / Time bee venom protein (honey bee) Allergy Unknown ALGY-Anaphy Verified 08/28/24 14:24 laxis Penicillins AdvReac Unknown ALGY-Swell Verified 08/28/24 14:24 Lip/Tongue/Throat tetracycline AdvReac Unknown ALGY-Anaphy Verified 08/28/24 14:24 laxis PFSH ED 2 PFSH: Medical History Elevated blood pressure reading in office with diagnosis of hypertension Sacroiliac inflammation left sided Psychiatric care Asthma-COPD overlap syndrome Health care maintenance Osteoarthritis involving multiple joints on both sides of body Bee sting allergy History of alcohol abuse 06/04/2022 admits to 6-7 beers daily History of diverticulosis COVID Positive test COVID 10/08/21 CKD (chronic kidney disease) stage 2, GFR 60-89 ml/min Left kidney only since in 1987 right nephrectomy for kidney stones. 02/28/2020 creatinine 1.3 and 02/04/22 creatinine 1.1 with a GFR of 71 Allergic rhinitis due to allergen Single kidney Benign familial tremor Anxiety disorder Hypertension Pericardial effusion without cardiac tamponade Kidney stones Opioid contract exists Encounter for long-term use of opiate analgesic Chronic back pain greater than 3 months duration Surgical History Status post left inguinal hernia repair (03/05/20) H/O circumcision H/O colonoscopy 5 years ago Hx of cholecystectomy H/O esophagogastroduodenoscopy History of nephrectomy, right 1987 due to kidney stones History of partial surgical removal of colon H/O arthroscopic knee surgery Family History Other Diabetes Denies family history of CAD (coronary artery disease) Anesthesia complication Bleeding disorder Cancer Social History Smoking and tobacco/nicotine status: current every day tobacco/nicotine user cigarettes Packs smoked per day: 0.25 Alcohol intake: current Alcohol intake frequency: 0-2 Drinks per Day Substance/Drug Use: never Caregiver/support person: No Lives independently: Yes Household members: friend(s) and other Details: room mate Marital status: Single Number of children: 0 service: No Current occupational status: employed and disabled Do you think of yourself as: Straight/Heterosexual Current gender identity: Male Special eladio needs: No Course 2 Vital Signs: Vital signs: Vital Signs Temperature 100.8 F H 10/27/24 06:33 Pulse Rate 113 H 10/27/24 11:30 Respiratory Rate 28 H 10/27/24 11:30 Blood Pressure 141/91 10/27/24 11:30 Pulse Oximetry 92 10/27/24 10:15 Oxygen Delivery Me thod Room Air 10/27/24 07:52 MDM - URI/Sore Throat Medical Decision Making Care assumed at change of shift. Patient has a fever at home he is tachycardic and little bit tachypneic as well. His oxygen sats are borderline has a mildly elevated D-dimer. White count is normal. Troponins trended normal. He did test positive for influenza A. Discussed with Dr. Boswell who will admit for supportive cares. His tachycardia and borderline hypoxia are concerning. Dr. Campbell wanted to review labs and evaluate patient for himself before deciding if he wished to proceed with a CTA of the chest to evaluate for blood clot patient does have a very mild elevation in his creatinine. Lab Data 10/27/24 06:50 10/27/24 06:50 Radiology Impressions Chest X-Ray 10/27/24 04:48 IMPRESSION: No acute findings. Laboratory Results WBC 7.40 10^3/uL (3.29-11.43) 10/27/24 06:50 RBC 4.47 10^6/uL (3.85-5.65) 10/27/24 06:50 Hgb 15.30 g/dL (11.27-16.99) 10/27/24 06:50 Hct 43.6 % (37-53) 10/27/24 06:50 MCV 97.5 fl (82-101) 10/27/24 06:50 MCH 34.2 pg (27-33) H 10/27/24 06:50 MCHC 35.1 g/dL (30-55) 10/27/24 06:50 RDW 12.8 % (12.1-15.1) 10/27/24 06:50 Plt Count 160 10^3/cmm (157-399) 10/27/24 06:50 MPV 8.6 fL (7.4-10.4) 10/27/24 06:50 Neut % (Auto) 74.1 % 10/27/24 06:50 Lymph % (Auto) 10.0 % 10/27/24 06:50 [place] % (Auto) 13.9 % 10/27/24 06:50 Eos % (Auto) 0.1 % 10/27/24 06:50 Baso % (Auto) 1.4 % 10/27/24 06:50 Neut # (Auto) 5.48 10^3/uL (1.8-7.7) 10/27/24 06:50 Lymph # (Auto) 0.7 10^3/uL (0.8-4.8) L 10/27/24 06:50 [place] # (Auto) 1.0 10^3/uL (0.2-0.9) H 10/27/24 06:50 Eos # (Auto) 0.0 10^3/uL (0.0-0.8) 10/27/24 06:50 Baso # (Auto) 0.1 10^3/uL (0.0-0.1) 10/27/24 06:50 Nucleated RBC % (auto) 0 % 10/27/24 06:50 Nucleated RBCs # 0.0 /100WBC 10/27/24 06:50 D-Dimer 1.19 ug/mLFEU (0-0.59) H 10/27/24 06:50 Sodium 130 mmol/L (136-145) L 10/27/24 06:50 Potassium 4.5 mmol/L (3.5-5.1) 10/27/24 06:50 Chloride 97 mmol/L (98-107) L 10/27/24 06:50 Carbon Dioxide 19 mmol/L (22-29) L 10/27/24 06:50 Anion Gap 18.5 (5-19) 10/27/24 06:50 BUN 6 mg/dL (6-20) 10/27/24 06:50 Creatinine 1.3 mg/dL (0.7-1.2) H 10/27/24 06:50 GFR Calculation 57.7 mL/min (90-130) L 10/27/24 06:50 Glucose 119 mg/dL (65-115) H 10/27/24 06:50 Calculated Osmolality 269 mOsm/kg (285-295) L 10/27/24 06:50 Lactic Acid 2.0 mmol/L (0.5-2.2) 10/27/24 06:50 Calcium 9.1 mg/dL (8.5-10.5) 10/27/24 06:50 Total Bilirubin 0.7 mg/dL (0.15-1.2) 10/27/24 06:50 AST 54 U/L (0-40) H 10/27/24 06:50 ALT 44 U/L (0-41) H 10/27/24 06:50 Alkaline Phosphatase 58 U/L (40-130) 10/27/24 06:50 Troponin T Baseline 18 ng/L (0-15) H 10/27/24 06:50 Total Protein 6.4 g/dL (6.6-8.7) L 10/27/24 06:50 Albumin 4.0 g/dL (3.5-5.2) 10/27/24 06:50 Globulin 2.4 g/dL (1.3-4.6) 10/27/24 06:50 Coronavirus (PCR) Negative (Negative) 10/27/24 04:45 Influenza A (PCR) Positive (Negative) 10/27/24 04:45 Influenza Type B (PCR) Negative (Negative) 10/27/24 04:45 RSV (PCR) Negative (Negative) 10/27/24 04:45 Discharge Plan Discharge Patient Disposition: Admitted As Inpatient Admit Provider: Isael Campbell Clinical Impression: Influenza, CKD (chronic kidney disease) stage 2, GFR 60-89 ml/min, Hypertension, Asthma-COPD overlap syndrome Condition: Stable Sign Out Sign Out Data: Patient Sign Out occurred on 10/27/24 at 06:20. Patient's care was discussed, and care was transferred from Harish Plaza DO to Filemon Beverly DO. Coding Level of Care Code ED Commissioned Fire Officer for Erich Vallecillo
[2024-10-27 05:38] LABS: Influenza A POSITIVE (Negative); Influenza B NEGATIVE (Negative); Respiratory Syncytial Virus Ce NEGATIVE (Negative); SARS-CoV-2 PCR NEGATIVE (Negative)
[2024-10-27] MEDS: acetaminophen 500 mg Tablet 1000 MG PO (06:28)
[2024-10-27] MEDS: oseltamivir phosphate 75 mg Capsule PO ×2 (06:28→18:04)
--- NOTE | 2024-10-27 06:35 | ECG_ITS ---
[facility] Test Date: 2024-10-27 Pat Name: Chepe Madrigal Department: Room: EDIP Gender: Male Charge Master Specialist: : 1970 Requested By: Filemon Baker Order Number: [id number] Reading MD: ELIOT BARRAGAN Measurements Intervals [place] Rate: 132 P: 84 VT: 151 QRS: 81 QRSD: 81 T: 72 QT: 277 QTc: 411 Interpretive Statements SINUS TACHYCARDIA MODERATE ST DEPRESSION [0.05+ mV ST DEPRESSION] Compared to ECG 05/23/2019 05:10:09 ST (T wave) deviation now present Sinus rhythm no longer present Electronically Signed On 10-28-2024 21:09:09 CIVIL CAD TECH by ELIOT BARRAGAN [email or web address]
[2024-10-27 07:08] LABS: Basophils # 0.1 10^3/uL (0.0-0.1); Basophils % 1.4 %; Eosinophils % 0.1 %; Hematocrit 43.6 % (37-53); Lymphocytes # 0.7 10^3/uL (0.8-4.8); Mean Corpuscular HGB Conc 35.1 g/dL (30-55); Mean Corpuscular Hemoglobin 34.2 pg (27-33); Mean Corpuscular Volume 97.5 fl (82-101); Mean Platelet Volume 8.6 fL (7.4-10.4); Monocytes % 13.9 %; Neutrophils # 5.48 10^3/uL (1.8-7.7); Neutrophils % 74.1 %; Nucleated Red Blood Cells % 0 %; Platelet Count 160 10^3/cmm (157-399); Red Blood Count 4.47 10^6/uL (3.85-5.65); Red Cell Distribution Width 12.8 % (12.1-15.1)
[2024-10-27] MEDS: sodium chloride 0.9% 1,000 ML 999 ML IV (07:10)
--- NOTE | 2024-10-27 07:11 | ECG_ITS ---
[facility] Test Date: 2024-10-27 Pat Name: Chepe Madrigal Department: Room: Gender: Male Tripoler: : 1970 Requested By: Filemon Baker Order Number: [id number] Reading MD: ELIOT BARRAGAN Measurements Intervals [place] Rate: 127 P: 83 RI: 152 QRS: 81 QRSD: 81 T: 69 QT: 288 QTc: 419 Interpretive Statements SINUS TACHYCARDIA WITH OCCASIONAL VENTRICULAR PREMATURE COMPLEXES ABNORMAL RHYTHM ECG Compared to ECG 05/23/2019 05:10:09 Ventricular premature complex(es) now present Sinus rhythm no longer present Electronically Signed On 10-28-2024 20:59:53 SHIPPING TEAM LEADER by ELIOT BARRAGAN [email or web address]
[2024-10-27 07:23] LABS: Alanine Aminotransferase 44 U/L (0-41); Alkaline Phosphatase 58 U/L (40-130); Anion Gap 18.5 (5-19); Aspartate Amino Transferase 54 U/L (0-40); Blood Urea Nitrogen 6 mg/dL (6-20); Calcium 9.1 mg/dL (8.5-10.5); Carbon Dioxide 19 mmol/L (22-29); Chloride 97 mmol/L (98-107); Globulin 2.4 g/dL (1.3-4.6); Glomerular Filtration Rate 57.7 mL/min (90-130); Glucose 119 mg/dL (65-115); Osmolality Calculated 269 mOsm/kg (285-295); Potassium 4.5 mmol/L (3.5-5.1); Sodium 130 mmol/L (136-145); Total Bilirubin 0.7 mg/dL (0.15-1.2); Total Protein 6.4 g/dL (6.6-8.7)
[2024-10-27 07:24] LABS: Creatinine Clr Calc Pharmacy 65.4612
[2024-10-27] MEDS: methylPREDNISolone sod succ 125 mg/2 mL INJ IVP (07:51)
[2024-10-27 07:56] LABS: Troponin(5th) Baseline 18 ng/L (0-15)
[2024-10-27] MEDS: ipratropium-albuterol 3 mL Neb INHALATION (07:56)
[2024-10-27 08:11] LABS: D Dimer 1.19 ug/mLFEU (0-0.59)
[2024-10-27 09:28] LABS: Troponin 5 2HR 18.36 ng/L (0-15); Troponin 5 2HR Delta 0.36 ABS# (0-10)
--- OUTSIDE RECORDS SUMMARY | 2024-10-27 12:00 | XMS_ITS | Clinical Summary ---
Author Organization [email or web address] Address [address] 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 Gender Identity Not on file Sexual Orientation Not on file Plan of Treatment Health Maintenance Due Date Last Done Comments DTAP/TDAP/TD VACCINES (1 - Tdap) 1990 HEPATITIS B VACCINES (1 of 3 - 19+ 3-dose series) 1990 COLORECTAL SCREENING 2016 Colorectal Cancer Screening 2016 FIT-DNA Q 3 years 2016 FIT/FOBT Q 1 year 2016 Flex Sig/CT Colonography Q 5 years 2016 ZOSTER VACCINE (1 of 2) 2021 INFLUENZA VACCINE (#1) 2024 07/24/1996 PNEUMOCOCCAL VACCINE 0-64 YEARS Aged Out No longer eligible based on patient's age to complete this topic Care Teams Television News Anchor Relationship Specialty Start Date End Date Omkar Gaming MD [address] Rao Hospitalist Dept [place], [place] PCP - General 07/22/04
--- OUTSIDE RECORDS SUMMARY | 2024-10-27 12:00 | XMS_ITS | Encounter Summary ---
Author Organization [facility] Address [address] 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
--- OUTSIDE RECORDS SUMMARY | 2024-10-27 12:00 | XMS_ITS | Encounter Summary ---
Author Organization [facility] Address [address] 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
--- OUTSIDE RECORDS SUMMARY | 2024-10-27 12:00 | XMS_ITS | Encounter Summary ---
Author Organization [facility] Address [address] [place] [address] Care Team Providers Care Tree Thinner Name Role Phone Omkar Gaming MD Primary Care Provider [phone] Encounter Details Date Type Department Care Team (Latest Contact Info) Description 07/26/2001 Outpatient Historical [facility] [place] [address] [place] [address] [place] Larry MD NO ADDRESS ON FILE VIRAL ENTERITIS NOS (Primary Dx) Social History Tobacco Use Types Packs/Day Years Used Date Smoking Tobacco: Never Assessed Sex and Gender Information Value Date Recorded Sex Assigned at Not on file Legal Sex Male 6:18 AM VP PROJECT Gender Identity Not on file Sexual Orientation Not on file documented as of this encounter Plan of Treatment Not on file documented as of this encounter Visit Diagnoses Diagnosis Intestinal infection due to other organism, not elsewhere classified- Primary documented in this encounter Care Teams Tree Thinner Relationship Specialty Start Date End Date Omkar Gaming MD [address] [facility] [address] Hospitalist Dept [place], [place] PCP - General 07/22/04 documented as of this encounter
--- OUTSIDE RECORDS SUMMARY | 2024-10-27 12:00 | XMS_ITS | Encounter Summary ---
Author Organization [facility] Address [address] [place] [address] Care Team Providers Care Building Serviceman Name Role Phone Omkar Gaming MD Primary Care Provider [phone] Encounter Details Date Type Department Care Team (Latest Contact Info) Description 05/20/2004 Outpatient Historical [facility] [place] [id number] Héctor Vargas, PhD NO ADDRESS ON FILE UNSPEC DENTAL CARIES (Primary Dx) Social History Tobacco Use Types Packs/Day Years Used Date Smoking Tobacco: Never Assessed Sex and Gender Information Value Date Recorded Sex Assigned at Not on file Legal Sex Male 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
--- OUTSIDE RECORDS SUMMARY | 2024-10-27 12:00 | XMS_ITS | Encounter Summary ---
Author Organization [facility] Address [address] 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
--- OUTSIDE RECORDS SUMMARY | 2024-10-27 12:00 | XMS_ITS | Encounter Summary ---
Author Organization [facility] Address [address] [place] [address] Care Team Providers Care Telephone Operators Supervisor Name Role Phone Omkar Gaming MD Primary Care Provider [phone] [phone] Encounter Details Date Type Department Care Team (Latest Contact Info) Description 07/22/2004 Outpatient Historical [facility] [address] [place] [address] [place] [address] Héctor Vargas, PhD NO ADDRESS ON FILE UNSPEC DENTAL CARIES (Primary Dx) Social History Tobacco Use Types Packs/Day Years Used Date Smoking Tobacco: Never Assessed Sex and Gender Information Value Date Recorded Sex Assigned at Not on file 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
--- OUTSIDE RECORDS SUMMARY | 2024-10-27 12:00 | XMS_ITS | Encounter Summary ---
Author Organization [facility] Address [address] 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
--- OUTSIDE RECORDS SUMMARY | 2024-10-27 12:53 | XMS_ITS | Encounter Summary ---
Author Organization [facility] Address [address] 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
--- OUTSIDE RECORDS SUMMARY | 2024-10-27 12:53 | XMS_ITS | Encounter Summary ---
Author Organization [facility] Address [address] 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
--- OUTSIDE RECORDS SUMMARY | 2024-10-27 12:53 | XMS_ITS | Clinical Summary ---
Author Organization [facility] Address [address] 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
--- OUTSIDE RECORDS SUMMARY | 2024-10-27 12:53 | XMS_ITS | Encounter Summary ---
Author Organization [facility] Address [address] [place] [address] Care Team Providers Care Title Attorney Name Role Phone Omkar Gaming MD Primary Care Provider [phone] [phone] Encounter Details Date Type Department Care Team (Latest Contact Info) Description 07/26/2001 Outpatient Historical [facility] [place] [address] [facility] [address] [place] [address] [place] Larry MD NO ADDRESS ON FILE VIRAL ENTERITIS NOS (Primary Dx) Social History Tobacco Use Types Packs/Day Years Used Date Smoking Tobacco: Never Assessed Sex and Gender Information Value Date Recorded Sex Assigned at Not on file 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
--- OUTSIDE RECORDS SUMMARY | 2024-10-27 12:53 | XMS_ITS | Encounter Summary ---
Author Organization [facility] Address [address] [place] [address] Care Team Providers Care Utility Driver Name Role Phone Omkra Gaming MD Primary Care Provider [phone] [phone] Encounter Details Date Type Department Care Team (Latest Contact Info) Description 05/20/2004 Outpatient Historical [facility] [place] [address] Héctor Vargas, PhD NO ADDRESS ON FILE UNSPEC DENTAL CARIES (Primary Dx) Social History Tobacco Use Types Packs/Day Years Used Date Smoking Tobacco: Never Assessed Sex and Gender Information Value Date Recorded Sex Assigned at Not on file 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
--- OUTSIDE RECORDS SUMMARY | 2024-10-27 12:53 | XMS_ITS | Encounter Summary ---
Author Organization [facility] Address [address] [place] [address] Care Team Providers Care Assistant Professor Sculpture Name Role Phone Omkar Gaming MD Primary Care Provider [phone] [phone] Encounter Details Date Type Department Care Team (Latest Contact Info) Description 07/22/[address] 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
--- OUTSIDE RECORDS SUMMARY | 2024-10-27 12:53 | XMS_ITS | Encounter Summary ---
Author Organization [facility] Address [address] 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
--- OUTSIDE RECORDS SUMMARY | 2024-10-27 12:53 | XMS_ITS | Encounter Summary ---
Author Organization [facility] Address [address] 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
--- NOTE | 2024-10-27 13:48 | CTR_ITS ---
PROCEDURE INFORMATION: Exam: CTA Chest With Contrast Exam date and time: 10/27/2024 4:18 PM Age: 54 years old Clinical indication: Abnormal findings; Abnormal diagnostic tests; Elevated d-dimer; Hyperventilation; Additional info: Elevated dimer, hypoxia TECHNIQUE: Imaging protocol: Computed tomographic angiography of the chest with contrast. Exam focused on the arteries. 3D rendering (Not supervised by radiologist): MIP and/or 3D reconstructed images were created by the technologist. Radiation optimization: All CT scans at this facility use at least one of these dose optimization techniques: automated exposure control; mA and/or kV adjustment per patient size (includes targeted exams where dose is matched to clinical indication); or iterative reconstruction. Contrast material: OMNIPAQUE 350; Contrast volume: 87 ml; Contrast route: INTRAVENOUS (IV); COMPARISON: CR (CHEST, ) 10/27/2024 4:58 AM RADIATION DOSE METRICS: Total DLP (mGy-cm): 338.4 FINDINGS: Pulmonary arteries: No evidence of pulmonary thromboembolism. Aorta: No evidence of aneurysmal dilatation or dissection of the thoracic aorta. Thyroid: Grossly unremarkable. Lungs: No focal consolidation. No evidence of pneumonia. Pleural spaces: No evidence of pleural effusion. No pneumothorax. Heart: No cardiomegaly. No pericardial effusion. Mediastinal space: No evidence of mediastinal mass, fluid collection or hematoma. Lymph nodes: No mediastinal or hilar adenopathy. Bones/joints: No evidence of acute fracture or aggressive osseous lesion. Soft tissues: No evidence of fluid collection or hematoma in the superficial soft tissues. Other findings: Please see separate report of concurrent CT of the abdomen and pelvis for findings below the diaphragm. CT/CT angio chest PE protcl [id number] IMPRESSION: 1. No evidence of PE or acute aortic abnormality.
--- NOTE | 2024-10-27 14:18 | ECG_ITS ---
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: : 1970 Requested By: Filemon Baker Order Number: [id number] Tony MD: ELIOT BARRAGAN Measurements Intervals Holly Rate: 110 P: 83 UT: 154 QRS: 76 QRSD: 83 T: 68 QT: 327 QTc: 443 Interpretive Statements SINUS TACHYCARDIA POSSIBLE RIGHT ATRIAL ENLARGEMENT [0.25mV P-WAVE] POSSIBLE LEFT ATRIAL ENLARGEMENT [-0.1mV P-WAVE IN V1/V2] ABNORMAL RHYTHM ECG Compared to ECG 10/27/2024 07:31:56 Ventricular premature complex(es) no longer present Electronically Signed On 10-28-2024 21:08:48 SIMONIZER by ELIOT BARRAGAN [email or web address]
[2024-10-27] MEDS: levalbuterol 0.63 mg/3 mL Neb INHALATION ×2 (14:21→19:40)
[2024-10-27 14:27] LABS: Estmated Average Glucose 108; Hemoglobin A1C 5.4 % (4.0-6.0)
[2024-10-27] MEDS: acetaminophen 325 mg Tablet 650 MG PO (14:35)
[2024-10-27] MEDS: sodium chloride 0.9% 1,000 ML 75 ML IV (14:36)
[2024-10-27] MEDS: heparin 5,000 unit/mL INJ 1 mL 5000 UNIT SUBCUT (14:36)
[2024-10-27] MEDS: pantoprazole DR 40 mg Tablet PO (14:36)
[2024-10-27] MEDS: methylPREDNISolone sod succ 40 mg/mL INJ IVP ×2 (14:36→20:16)
[2024-10-27 14:50] LABS: Procalcitonin 0.33 ng/mL (0-0.5); Thyroid Stimulating Hormone 1.63 uIU/mL (0.27-4.20); Vitamin B12 470 pg/mL (232-1245)
[2024-10-27 15:03] LABS: Iron 28 ug/dL (59-158); Percent Saturation 10.9 % (20-50); Total Iron Binding Capacity 256 mcg/dl; Unsaturated Iron Binding 228 ug/dL (112-347)
--- NOTE | 2024-10-27 15:03 | P.HP_ITS ---
Providers/Chief Complaint 2 Admitting Physician: Isael Campbell MD Primary Care Provider: Bebo Jimenez MD Chief Complaint: Fever,Coughing,Chest Pain History of Present Illness Chepe Madirgal is a 54 year old male with past medical history of hypertension, anxiety disorder presents to the ER today because of difficulty in breathing, cough with expectoration and chest pain which started yesterday morning along with high-grade fevers. In the ER he was found to be hypoxic requiring up to 2 L of oxygen supplementation and was found to be tachycardic with heart rate up to 130s and tachypneic. On examination patient states he is feeling terrible, complaining of chest pain while coughing with difficulty in breathing on exertion. Complains of diarrhea since yesterday and poor oral intake. Denies any dizziness. Review of Systems 2 General: Reports: 10 or more systems reviewed and unremarkable except in HPI and below Const: Denies: fever(s), chills, body aches, change in appetite, change in weight, malaise, night sweats, diaphoresis, change in sleep pattern, daytime sleepiness or snoring Eyes: Denies: change in vision, blurry vision, photophobia, eye discomfort or eye discharge ENMT: Denies: throat pain, enlarged tonsils, hoarseness, mouth pain, oral sores, dry mouth, tinnitus, nasal congestion or post nasal drip Card: Denies: chest pain, palpitations, irregular heart rhythm, edema, swelling of feet/ankles, lightheadedness, syncope, pre-syncope, dyspnea on exertion, orthopnea, leg pain with exertion or acrocyanosis Resp: Denies: dyspnea, productive cough, non-productive cough, wheezing, stridor, pain on inspiration, change in phlegm color, hemoptysis or chest congestion GI: Denies: abdominal pain, nausea, vomiting, hematemesis, coffee ground emesis, dysphagia, heartburn, diarrhea, constipation, bloating, GI cramping, change in bowel habits, pain on defecation, hematochezia or melena : Denies: flank pain, difficulty urinating, dysuria, urinary frequency, urinary urgency, urinary hesitancy, urinary dribbling, difficulty starting urination, change in urine stream, nocturia or hematuria Musc: Denies: neck pain, back pain, extremity pain, joint pain, joint swelling, joint redness, joint stiffness or limited range of motion Neuro: Denies: headache(s), numbness in extremities, weakness in extremities, sensory changes, lack of coordination, difficulty walking, frequent falls, dizziness, vertigo, confusion, Slurred speech present, difficulty communicating thoughts or seizure-like activity Psych: Denies: anxiety, depression, mood swings, panic attacks, hopelessness or irritability Endo: Denies: polyuria, polydipsia, tired all the time, cold intolerance, excessive sweating, flushing or heat intolerance Nicolás/Lymph: Denies: easy bruising or easy bleeding All/Imm: Denies: tongue swelling, facial swelling or acute wheezing Medications/Allergies Home Medications ?Medication ?Instructions ?Recorded ?Confirmed ?Last Taken ?Type epinephrine 0.3 mg/0.3 mL 0.3 mg (0.3 mL) IM Q4H PRN 0 02/18/23 10/27/24 Unknown Rx injection, auto-injector (EpiPen) anaphylaxis #2 ea albuterol sulfate 90 mcg/actuation 2 puff inhalation Q 6H PRN 07/17/24 10/27/24 Unknown Rx aerosol inhaler (Ventolin HFA) shortness of breath or wheezing #8.5 grams lisinopril 10 mg tablet 10 mg PO DAILY 10/27/2405/13 Unknown History Allergies Allergy/AdvReac Type Severity Reaction Status Date / Time bee venom protein (honey bee) Allergy Unknown ALGY-Anaphy Verified 08/28/24 14:24 laxis Penicillins AdvReac Unknown ALGY-Swell Verified 08/28/24 14:24 Lip/Tongue/Throat tetracycline AdvReac Unknown ALGY-Anaphy Verified 08/28/24 14:24 laxis PFSH Acute 2 PFSH: Medical History Elevated blood pressure reading in office with diagnosis of hypertension Sacroiliac inflammation left sided Psychiatric care Asthma-COPD overlap syndrome Health care maintenance Osteoarthritis involving multiple joints on both sides of body Bee sting allergy History of alcohol abuse 06/04/2022 admits to 6-7 beers daily History of diverticulosis COVID Positive test COVID 10/08/21 CKD (chronic kidney disease) stage 2, GFR 60-89 ml/min Left kidney only since in 1987 right nephrectomy for kidney stones. 02/28/2020 creatinine 1.3 and 02/04/22 creatinine 1.1 with a GFR of 71 Allergic rhinitis due to allergen Single kidney Benign familial tremor Anxiety disorder Hypertension Pericardial effusion without cardiac tamponade Kidney stones Opioid contract exists Encounter for long-term use of opiate analgesic Chronic back pain greater than 3 months duration Surgical History Status post left inguinal hernia repair (03/05/20) H/O circumcision H/O colonoscopy 5 years ago Hx of cholecystectomy H/O esophagogastroduodenoscopy History of nephrectomy, right 1987 due to kidney stones History of partial surgical removal of colon H/O arthroscopic knee surgery Family History Other Diabetes Denies family history of CAD (coronary artery disease) Anesthesia complication Bleeding disorder Cancer Social History Smoking and tobacco/nicotine status: current every day tobacco/nicotine user cigarettes Packs smoked per day: 0.25 Alcohol intake: current Alcohol intake frequency: 0-2 Drinks per Day Substance/Drug Use: never Caregiver/support person: No Lives independently: Yes Household members: friend(s) and other Details: room mate Marital status: Single Number of children: 0 service: No Current occupational status: employed and disabled Do you think of yourself as: Straight/Heterosexual Current gender identity: Male Special eladio needs: No Vitals/I&O/Wt Last Vital Signs Temp 98.5 F 10/27/24 13:55 Pulse 111 H 10/27/24 14:31 Resp 18 10/27/24 14:22 BP 152/94 10/27/24 13:55 Pulse Ox 95 10/27/24 14:22 O2 Del Method Nasal Cannula 10/27/24 14:22 O2 Flow Rate 1 10/27/24 14:22 10/27/24 10/27/24 10/27/24 06:59 14:59 22:59 Intake Total 1000 / 1000 Balance 1000 / 1000 Weight last 48 hrs Weight 75.296 kg Weight 90.718 kg Physical Exam 2 Narrative: General: Acute distress because of cough and chest pain, sick appearing HEENT: PERRLA, pupils bilaterally equal and reactive Chest: Normal vesicular breath sounds, no added sounds, equal good air entry bilaterally CVS: S1-S2 regular, no murmurs, no tachycardia, no gallops, no rubs Abdomen: Soft, nontender, no organomegaly, bowel sounds present Neuro: No focal deficits, no facial deformity, AO x3, power 5/5 in all limbs Data 10/27/24 06:50 10/27/24 06:50 A&P Assessment and plan (1) Influenza: Leading to mild COPD exacerbation. Oxygen supplementation keeping saturation over 90%. Supportive treatment. Solu-Medrol 40 mg every 12 hourly. Tamiflu 75 mg twice daily Pulmicort twice daily, ipratropium, Xopenex every 6 hour. (2) Asthma-COPD overlap syndrome: (3) Acute kidney injury: Baseline creatinine up to 1.1. Currently 1.3. Does have history of single kidney. Start on gentle IV hydration with normal saline 75 cc/h. CT abdomen pelvis to rule out obstructive nephropathy. Has history of kidney stones. Monitor BMP daily. Patient getting CTA today. (4) CKD (chronic kidney disease) stage 2, GFR 60-89 ml/min: (5) Single kidney: (6) Tachycardia: (7) Chest pain: Most likely in setting of bronchitis from influenza. But given tachycardia cannot rule out PE. Will plan for CTA of D-dimer elevated. Troponin cycle negative. Tylenol as needed. Robitussin as needed. Plan Full code Cardiac diet Protonix OPD prophylaxis Heparin 5000 Q12 hourly for DVT prophylaxis PDMP PDMP Reviewed: Not Reviewed Attestations 2 Medical Necessity Statement*: Admission for more than 2 midnights for management of acute kidney injury in a patient with history of single kidney, CKD, influenza bronchitis while PE is ruled out Diagnoses Influenza J11.1 Asthma-COPD overlap syndrome J44.89 Acute kidney injury N17.9 CKD (chronic kidney disease) stage 2, GFR 60-89 ml/min N18.2 Single kidney Z90.5 Tachycardia R00.0 Chest pain R07.9
--- NOTE | 2024-10-27 15:06 | CTR_ITS ---
PROCEDURE INFORMATION: Exam: CT Abdomen And Pelvis Without Contrast Exam date and time: 10/27/2024 4:18 PM Age: 54 years old Clinical indication: Abdominal tenderness; Prior surgery; Surgery date: 6+ months; Surgery type: Bowel resection, right kidney, cholecystectomy; Additional info: Naldo TECHNIQUE: Imaging protocol: Computed tomography of the abdomen and pelvis without contrast. Radiation optimization: All CT scans at this facility use at least one of these dose optimization techniques: automated exposure control; mA and/or kV adjustment per patient size (includes targeted exams where dose is matched to clinical indication); or iterative reconstruction. COMPARISON: CT kidney stone [id number] 02/01/2021 11:24 AM RADIATION DOSE METRICS: Total DLP (mGy-cm): 602.8 FINDINGS: Diaphragm: No evidence of diaphragmatic defect. Liver: Severe hepatic steatosis. Gallbladder and biliary ducts: Status post cholecystectomy. No evidence of intrahepatic or extrahepatic biliary dilatation. Pancreas: Grossly unremarkable. Spleen: Grossly unremarkable. Adrenal glands: Grossly unremarkable. Kidneys and ureters: Prior right-sided nephrectomy. No gross renal parenchymal abnormality on the left. No evidence of hydronephrosis or ureteral stone. Stomach and bowel: Colonic diverticulosis without evidence of acute diverticulitis. No bowel obstruction or perienteric inflammatory changes. Appendix: The appendix is not visualized, however there are no findings to suggest appendicitis. Intraperitoneal space: No evidence of free air or fluid collection. Vasculature: No evidence of aneurysmal dilitation of abdominal aorta. Lymph nodes: No evidence of adenopathy. Urinary bladder: Grossly unremarkable. Reproductive: Grossly unremarkable. Bones/joints: No evidence of acute fracture or aggresive osseous lesion. Soft tissues: No evidence of fluid collection or hematoma in the superficial soft tissues. Fat containing right-sided inguinal hernia measuring approximately 8 cm in length by [address]/CT abdomen pelvis wo con [id number] IMPRESSION: 1. No evidence of acute abnormality in the abdomen or pelvis within limitations of a noncontrast exam. 2. Severe hepatic steatosis. Consider correlation with clinical and laboratory findings for steatohepatitis.
[2024-10-27 15:25] LABS: Alcohol Level < 10 mg/dL (0-10)
[2024-10-27] MEDS: iohexol 350 mg/mL 500 mL Btl (per mL) IV (16:24)
[2024-10-27 16:45] LABS: MRSA PCR OZH (swab) NOT DETECTED (Negative)
[2024-10-27] MEDS: ipratropium 0.5 mg/2.5 mL Neb INHALATION (19:40)
[2024-10-27] MEDS: budesonide 0.5 mg/2 mL Neb INHALATION (19:40)
[2024-10-27] MEDS: metoprolol tartrate 25 mg Tablet PO (20:17)
[2024-10-28] VITALS (9 sets, daily range): BP systolic 138–155; BP diastolic 89–97; PULSE 20–122; RESP 16–112; TEMP 36.7–37.3; O2SAT 96–98
[2024-10-28] MEDS: levalbuterol 0.63 mg/3 mL Neb INHALATION ×3 (01:31→13:12)
[2024-10-28] MEDS: ipratropium 0.5 mg/2.5 mL Neb INHALATION ×3 (01:31→13:12)
[2024-10-28] MEDS: heparin 5,000 unit/mL INJ 1 mL 5000 UNIT SUBCUT (01:36)
[2024-10-28 01:49] LABS: Bilirubin Urine Negative (Negative); Blood Urine Negative (Negative); Glucose Urine UA 1+ (Normal); Ketones Urine Negative (Negative); Leukocyte Esterase Urine Negative (Negative); Nitrate Urine Negative (Negative); Protein Urine 1+ (Negative); Specific Gravity, Urine 1.011 (1.005-1.030); Urine Appearance Clear (CLEAR); Urine Color Yellow (Yellow); Urobilinogen Urine 0.2 mg/dL (Negative)
[2024-10-28 01:53] LABS: Add Urine Microscopic? YES; Bacteria Urine None Seen /hpf; Hyaline Casts Urine 0-4 /lpf; RBC Urine 0-2 /hpf (0-2); Squamous Epithelial Cell Urine 0-5 /hpf (0-5); WBC Urine 0-5 /hpf (0-5)
[2024-10-28 02:01] LABS: Amphetamines Screen Urine Negative (Negative); Barbiturates Screen Urine Negative (Negative); Benzodiazepines Screen Urine Negative (Negative); Cocaine Screen Urine Negative (Negative); Opiate Screen Urine Negative (Negative); PCP Screen Urine Negative (Negative); THC Screen Urine Negative (Negative)
[2024-10-28 06:28] LABS: Basophils % 0.2 %; Hematocrit 41.3 % (37-53); Lymphocytes # 0.7 10^3/uL (0.8-4.8); Mean Corpuscular HGB Conc 34.6 g/dL (30-55); Mean Corpuscular Hemoglobin 34.7 pg (27-33); Mean Corpuscular Volume 100.2 fl (82-101); Mean Platelet Volume 8.9 fL (7.4-10.4); Monocytes # 0.8 10^3/uL (0.2-0.9); Monocytes % 6.7 %; Neutrophils # 10.38 10^3/uL (1.8-7.7); Neutrophils % 86.6 %; Nucleated Red Blood Cells % 0 %; Platelet Count 185 10^3/cmm (157-399); Red Blood Count 4.12 10^6/uL (3.85-5.65); Red Cell Distribution Width 13.2 % (12.1-15.1); White Blood Count 11.98 10^3/uL (3.29-11.43)
[2024-10-28 06:47] LABS: Chol HDL Ratio 2.69 mg/dL (1.0-5.00); Cholesterol 129 mg/dL (0-200); HDL Cholesterol 48 mg/dL (60-100); LDL Cholesterol Calculated 60 mg/dL (50-129); LDL HDL Ratio 1.25 RATIO (0.00-3.22); Triglycerides 103 mg/dL (0-150)
[2024-10-28 06:48] LABS: Alanine Aminotransferase 32 U/L (0-41); Albumin Level 3.7 g/dL (3.5-5.2); Alkaline Phosphatase 48 U/L (40-130); Aspartate Amino Transferase 35 U/L (0-40); Blood Urea Nitrogen 9 mg/dL (6-20); Calcium 9.1 mg/dL (8.5-10.5); Carbon Dioxide 20 mmol/L (22-29); Chloride 105 mmol/L (98-107); Creatinine Clr Calc Pharmacy 77.6456; Globulin 2.2 g/dL (1.3-4.6); Glomerular Filtration Rate 78.2 mL/min (90-130); Glucose 161 mg/dL (65-115); Magnesium 2.1 mg/dL (1.7-2.3); Osmolality Calculated 286 mOsm/kg (285-295); Phosphorus 1.8 mg/dL (2.5-4.5); Sodium 137 mmol/L (136-145); Total Bilirubin 0.3 mg/dL (0.15-1.2); Total Protein 5.9 g/dL (6.6-8.7)
[2024-10-28 06:54] LABS: Procalcitonin 0.32 ng/mL (0-0.5)
[2024-10-28 07:04] LABS: Folate Level 13.1 ng/mL (4.5-32.2)
[2024-10-28] MEDS: budesonide 0.5 mg/2 mL Neb INHALATION (08:27)
[2024-10-28] MEDS: metoprolol tartrate 25 mg Tablet PO (08:59)
[2024-10-28] MEDS: pantoprazole DR 40 mg Tablet PO (08:59)
[2024-10-28] MEDS: methylPREDNISolone sod succ 40 mg/mL INJ IVP (08:59)
[2024-10-28] MEDS: docusate sodium 100 mg Capsule PO (08:59)
[2024-10-28] MEDS: oseltamivir phosphate 75 mg Capsule PO (08:59)
--- NOTE | 2024-10-28 13:12 | P.DS_ITS ---
Discharge Providers Date of Admission: 10/27/24 07:58 Date of Discharge: October 28, 2024 Attending Provider at Admission: Isael Campbell MD Attending Provider at Discharge: Isael Campbell MD Primary Care Provider: Bebo Jimenez MD Diagnoses at Discharge Discharge Diagnosis (1) Influenza: Status: Acute (2) Asthma-COPD overlap syndrome: Status: Chronic (3) Acute kidney injury: Status: Acute (4) CKD (chronic kidney disease) stage 2, GFR 60-89 ml/min: Status: Acute Permanent problem details: Left kidney only since in 1987 right nephrectomy for kidney stones. 02/28/2020 creatinine 1.3 and 02/04/22 creatinine 1.1 with a GFR of 71 (5) Single kidney: Status: Acute (6) Tachycardia: Status: Acute (7) Chest pain: Status: Acute Reason for Visit Reason for Visit: Fever,Coughing,Chest Pain Hospital Course Hospital Course Chepe Madrigal is a 54 year old male with past medical history of hypertension, anxiety disorder presents to the ER today because of difficulty in breathing, cough with expectoration and chest pain which started yesterday morning along with high-grade fevers. In the ER he was found to be hypoxic requiring up to 2 L of oxygen supplementation and was found to be tachycardic with heart rate up to 130s and tachypneic. On examination patient states he is feeling terrible, complaining of chest pain while coughing with difficulty in breathing on exertion. Complains of diarrhea since yesterday and poor oral intake. Denies any dizziness. Patient admitted to hospital further evaluation and management of respiratory failure because of tachycardia and tachypnea. PE was ruled out. CT is also negative for consolidation. Patient remained on room air during hospitalization. He improved with nebulization treatment and systemic steroids. He is been discharged hemodynamically stable condition oral steroid taper, nebulization treatment and oral Tamiflu for next 3 days. He is to follow with a primary care provider within next 1 week. Physical Exam Narrative: General: Acute distress because of cough and chest pain, HEENT: PERRLA, pupils bilaterally equal and reactive Chest: Normal vesicular breath sounds, no added sounds, equal good air entry bilaterally CVS: S1-S2 regular, no murmurs, no tachycardia, no gallops, no rubs Abdomen: Soft, nontender, no organomegaly, bowel sounds present Neuro: No focal deficits, no facial deformity, AO x3, power 5/5 in all limbs Discharge Data Studies Completed and Pending Completed Studies During Hospitalization Category Date Time Status CT abdomen pelvis wo con [id number] Routine Cat Scan 10/27/24 15:06 Completed CTA chest [CT angio chest PE protcl [id number]] Routine Cat Scan 10/27/24 13:48 Completed XR chest 1V portable [id number] Stat Exams 10/27/24 04:48 Completed Pending at discharge Category Date Time Status Complete Blood Count w/Auto AM LABS Lab 10/29/24 04:00 Ordered Complete Blood Count w/Auto AM LABS Lab 10/30/24 04:00 Ordered Comprehensive Metabolic Panel AM LABS Lab 10/29/24 04:00 Ordered Comprehensive Metabolic Panel AM LABS Lab 10/30/24 04:00 Ordered Magnesium AM LABS Lab 10/29/24 04:00 Ordered Magnesium AM LABS Lab 10/30/24 04:00 Ordered Phosphorus AM LABS Lab 10/29/24 04:00 Ordered Phosphorus AM LABS Lab 10/30/24 04:00 Ordered Radiology Impressions Chest X-Ray 10/27/24 04:48 IMPRESSION: No acute findings. Chest CTA 10/27/24 13:48 IMPRESSION: 1. No evidence of PE or acute aortic abnormality. Abdomen/Pelvis CT 10/27/24 15:06 IMPRESSION: 1. No evidence of acute abnormality in the abdomen or pelvis within limitations of a noncontrast exam. 2. Severe hepatic steatosis. Consider correlation with clinical and laboratory findings for steatohepatitis. Laboratory Results WBC 11.98 10^3/uL (3.29-11.43) H 10/28/24 05:58 RBC 4.12 10^6/uL (3.85-5.65) 10/28/24 05:58 Hgb 14.30 g/dL (11.27-16.99) 10/28/24 05:58 Hct 41.3 % (37-53) 10/28/24 05:58 MCV 100.2 fl (82-101) 10/28/24 05:58 MCH 34.7 pg (27-33) H 10/28/24 05:58 MCHC 34.6 g/dL (30-55) 10/28/24 05:58 RDW 13.2 % (12.1-15.1) 10/28/24 05:58 Plt Count 185 10^3/cmm (157-399) 10/28/24 05:58 MPV 8.9 fL (7.4-10.4) 10/28/24 05:58 Neut % (Auto) 86.6 % 10/28/24 05:58 Lymph % (Auto) 6.0 % 10/28/24 05:58 [place] % (Auto) 6.7 % 10/28/24 05:58 Eos % (Auto) 0.0 % 10/28/24 05:58 Baso % (Auto) 0.2 % 10/28/24 05:58 Neut # (Auto) 10.38 10^3/uL (1.8-7.7) H 10/28/24 05:58 Lymph # (Auto) 0.7 10^3/uL (0.8-4.8) L 10/28/24 05:58 [place] # (Auto) 0.8 10^3/uL (0.2-0.9) 10/28/24 05:58 Eos # (Auto) 0.0 10^3/uL (0.0-0.8) 10/28/24 05:58 Baso # (Auto) 0.0 10^3/uL (0.0-0.1) 10/28/24 05:58 Nucleated RBC % (auto) 0 % 10/28/24 05:58 Nucleated RBCs # 0.0 /100WBC 10/28/24 05:58 D-Dimer 1.19 ug/mLFEU (0-0.59) H 10/27/24 06:50 Sodium 137 mmol/L (136-145) 10/28/24 05:58 Potassium 4.0 mmol/L (3.5-5.1) 10/28/24 05:58 Chloride 105 mmol/L (98-107) 10/28/24 05:58 Carbon Dioxide 20 mmol/L (22-29) L 10/28/24 05:58 Anion Gap 16.0 (5-19) 10/28/24 05:58 BUN 9 mg/dL (6-20) 10/28/24 05:58 Creatinine 1.0 mg/dL (0.7-1.2) 10/28/24 05:58 GFR Calculation 78.2 mL/min (90-130) L 10/28/24 05:58 Glucose 161 mg/dL (65-115) H 10/28/24 05:58 Estimat Average Glucose 108 10/27/24 06:50 Hemoglobin A1c 5.4 % (4.0-6.0) 10/27/24 06:50 Calculated Osmolality 286 mOsm/kg (285-295) 10/28/24 05:58 Lactic Acid 2.0 mmol/L (0.5-2.2) 10/27/24 06:50 Calcium 9.1 mg/dL (8.5-10.5) 10/28/24 05:58 Phosphorus 1.8 mg/dL (2.5-4.5) L 10/28/24 05:58 Magnesium 2.1 mg/dL (1.7-2.3) 10/28/24 05:58 Iron 28 ug/dL (59-158) L 10/27/24 06:50 TIBC 256 mcg/dl 10/27/24 06:50 % Saturation 10.9 % (20-50) L 10/27/24 06:50 Unsat Iron Binding 228 ug/dL (112-347) 10/27/24 06:50 Total Bilirubin 0.3 mg/dL (0.15-1.2) 10/28/24 05:58 AST 35 U/L (0-40) 10/28/24 05:58 ALT 32 U/L (0-41) 10/28/24 05:58 Alkaline Phosphatase 48 U/L (40-130) 10/28/24 05:58 Troponin T Baseline 18 ng/L (0-15) H 10/27/24 06:50 Troponin T 120 Minute 18.36 ng/L (0-15) H 10/27/24 09:06 Delta Troponin T 0.36 ABS# (0-10) 10/27/24 09:06 Troponin T Hi Sens 6Hr 14.70 ng/L (0-15) 10/27/24 12:38 Troponin T Hi Sens 6Hr Delta -3.30 ng/L (0-12) L 10/27/24 12:38 Total Protein 5.9 g/dL (6.6-8.7) L 10/28/24 05:58 Albumin 3.7 g/dL (3.5-5.2) 10/28/24 05:58 Globulin 2.2 g/dL (1.3-4.6) 10/28/24 05:58 Triglycerides 103 mg/dL (0-150) 10/28/24 05:58 Cholesterol 129 mg/dL (0-200) 10/28/24 05:58 LDL Cholesterol, Calc 60 mg/dL (50-129) 10/28/24 05:58 HDL Cholesterol 48 mg/dL (60-100) L 10/28/24 05:58 LDL/HDL Ratio 1.25 RATIO (0.00-3.22) 10/28/24 05:58 Cholesterol/HDL Ratio 2.69 mg/dL (1.0-5.00) 10/28/24 05:58 Vitamin B12 470 pg/mL (232-1245) 10/27/24 06:50 Folate 13.1 ng/mL (4.5-32.2) 10/28/24 05:58 Procalcitonin 0.32 ng/mL (0-0.5) 10/28/24 05:58 TSH 1.63 uIU/mL (0.27-4.20) 10/27/24 06:50 Urine Color Yellow (Yellow) 10/28/24 01:39 Urine Appearance Clear (CLEAR) 10/28/24 01:39 Urine pH 6.0 (5-7) 10/28/24 01:39 Ur Specific [place] 1.011 (1.005-1.030) 10/28/24 01:39 Urine Protein 1+ (Negative) A 10/28/24 01:39 Urine Glucose (UA) 1+ (Normal) H 10/28/24 01:39 Urine Ketones Negative (Negative) 10/28/24 01:39 Urine Blood Negative (Negative) 10/28/24 01:39 Urine Nitrate Negative (Negative) 10/28/24 01:39 Urine Bilirubin Negative (Negative) 10/28/24 01:39 Urine Urobilinogen 0.2 mg/dL (Negative) 10/28/24 01:39 Ur Leukocyte Esterase Negative (Negative) 10/28/24 01:39 Urine RBC 0-2 /hpf (0-2) 10/28/24 01:39 Urine WBC 0-5 /hpf (0-5) 10/28/24 01:39 Ur Squamous Epith Cells 0-5 /hpf (0-5) 10/28/24 01:39 Amorphous Sediment Not Reportable 10/28/24 01:39 Urine Bacteria None seen /hpf (NONE) 10/28/24 01:39 Hyaline Casts 0-4 /lpf H 10/28/24 01:39 Nasal MRSA (PCR) Not detected (Negative) 10/27/24 15:00 Urine Opiates Screen Negative ng/mL (Negative) 10/28/24 01:39 Ur Barbiturates Screen Negative ng/mL (Negative) 10/28/24 01:39 Ur Phencyclidine Scrn Negative ng/mL (Negative) 10/28/24 01:39 Ur Amphetamines Screen Negative ng/mL (Negative) 10/28/24 01:39 U Benzodiazepines Scrn Negative ng/mL (Negative) 10/28/24 01:39 Urine Cocaine Screen Negative ng/mL (Negative) 10/28/24 01:39 U Marijuana (THC) Screen Negative ng/mL (Negative) 10/28/24 01:39 Ethyl Alcohol < 10 mg/dL (0-10) 10/27/24 12:38 Coronavirus (PCR) Negative (Negative) 10/27/24 04:45 Influenza A (PCR) Positive (Negative) 10/27/24 04:45 Influenza Type B (PCR) Negative (Negative) 10/27/24 04:45 RSV (PCR) Negative (Negative) 10/27/24 04:45 Vitals Last Vital Signs Temp 98.3 F 10/28/24 12:00 Pulse 112 H 10/28/24 12:00 Resp 17 10/28/24 12:00 BP 138/90 10/28/24 12:00 Pulse Ox 97 10/28/24 12:00 O2 Del Method Room Air 10/28/24 12:00 O2 Flow Rate 1 10/27/24 20:00 Discharge Plan Discharge Patient Disposition: Home Condition: Stable Prescriptions: New metoprolol tartrate 25 mg Tablet 25 mg PO BID@0900,2100 Qty: 660 0RF oseltamivir 75 mg Capsule 75 mg PO BID Qty: 8 0RF fluticasone furoate-vilanterol [Breo Ellipta] 100-25 mcg/dose blister with device 1 inh inhalation DAILY Qty: 60 0RF prednisone 10 mg tablet See Taper PO DIRECTED Qty: 42 0RF Taper: predniSONE 60-10 60 mg Daily for 2 Days and 0 Hour 50 mg Daily for 2 Days and 0 Hour 40 mg Daily for 2 Days and 0 Hour 30 mg Daily for 2 Days and 0 Hour 20 mg Daily for 2 Days and 0 Hour 10 mg Daily for 2 Days and 0 Hour Rx Instructions: see taper instructions Continued epinephrine [EpiPen] 0.3 mg/0.3 mL auto-injector 0.3 mg IM Q4H PRN (Reason: anaphylaxis) Qty: 2 2RF albuterol sulfate [Ventolin HFA] 90 mcg/actuation HFA aerosol inhaler 2 puff inhalation Q6H PRN (Reason: shortness of breath or wheezing) Qty: 8.5 0RF lisinopril 10 mg tablet 10 mg PO DAILY Discharge Orders: Discharge Order (Routine); Ordered 10/28/24 Ordered By: Isael Campbell Referrals: Bebo Jimenez MD [Primary Care Provider] - (We have notified your physician's clinic of the need for a follow-up appointment to be scheduled. If you have not heard from them within the next 2 business days, please call them directly. ) Discharge Diet: Regular and Cardiac Discharge Activity: Resume usual activity and Increase activity as tolerated Patient Instructions: Opioid Safety Activity Restrictions/Additional Instructions: Please avoid smoking. Take steroid taper as described. Take Tamiflu for next 3 days. Use Breo Ellipta inhaler for next 2 weeks. Follow-up with a primary care provider within next 1 week. Discharge Attestations Time Spent in Discharge Care*: greater than 30 min Specific Discharge Activities: educating patient, discussing with pcp/other providers, discussing with [employer]/social workers/dc planners, documenting/other paperwork and evaluating patient/reviewing data Status at Discharge: Cognitive status at discharge: cognitively intact , Behavioral status at discharge: cooperative , Functional status at discharge: independent ambulation , Overall status at discharge: patient is back to baseline Quality Metrics Clinical Quality Measures [ No reported AMI, CVA or VTE this stay] Coding Level of Care Code 79354 Total time (in minutes) for Discharge: 60 Diagnoses Influenza J11.1 Asthma-COPD overlap syndrome J44.89 Acute kidney injury N17.9 CKD (chronic kidney disease) stage 2, GFR 60-89 ml/min N18.2 Single kidney Z90.5 Tachycardia R00.0 Chest pain R07.9
== END 2024-10-28 14:49 | disposition home or self-care (01) ==
LOC: ER 08:59 → ER IP 09:23 → MEDSURG 21:37
PROVIDERS: Emergency Medicine; Admitting Provider Student in an Organized Health Care Education/Training Program; Emergency Provider Family Medicine; PCP Family Medicine Adult Medicine; Visit Provider Student in an Organized Health Care Education/Training Program
DX: J10.1 Influenza due to other identified influenza virus with other respiratory manifestations (principal); J44.89 Other specified chronic obstructive pulmonary disease; Z79.899 Other long term (current) drug therapy; Z88.8 Allergy status to other drugs, medicaments and biological substances; Z88.0 Allergy status to penicillin; Z91.030 Bee allergy status; Z86.16 Personal history of COVID-19; I12.9 Hypertensive chronic kidney disease with stage 1 through stage 4 chronic kidney disease, or unspecified chronic kidney disease; N18.2 Chronic kidney disease, stage 2 (mild); F41.9 Anxiety disorder, unspecified; Z90.49 Acquired absence of other specified parts of digestive tract; Z90.5 Acquired absence of kidney; F17.210 Nicotine dependence, cigarettes, uncomplicated; Z11.52 Encounter for screening for COVID-19; R00.0 Tachycardia, unspecified; Z87.442 Personal history of urinary calculi; N17.9 Acute kidney failure, unspecified; J44.1 Chronic obstructive pulmonary disease with (acute) exacerbation; R09.02 Hypoxemia
CPT/HCPCS: 36415; 71045; 71275; 74176; 80053; 80061; 80306; 80307; 81001; 82607; 82746; 83036; 83540; 83550; 83605; 83735; 84100; 84145; 84443; 84484; 85025; 85378; 86403; 87637; 93005; 94640; 96372; 96374; 99285; G0378; J1644; J2919; J7030; J7614; J7626; J7644

== ENCOUNTER → 2024-11-29 09:59 | Outpatient (BNVA) | payer MEDICARE, SELFPAY | PROVIDERS: PCP Family Medicine Adult Medicine; Visit Provider Orthopaedic Surgery | DX: Z01.818 Encounter for other preprocedural examination (principal); M48.062 Spinal stenosis, lumbar region with neurogenic claudication | CPT/HCPCS: 36415; 80053; 81001; 85025; 99214 ==

== ENCOUNTER 2024-12-28 08:56 | Day surgery (SDC) | payer MEDICARE, SELFPAY ==
[2024-12-28] VITALS (14 sets, daily range): BP systolic 88–175; BP diastolic 58–111; PULSE 69–98; RESP 13–23; TEMP 36.1–36.5; O2SAT 92–100; BMI 30.1
[2024-12-28] MEDS: sodium chloride 0.9% 1,000 ML 30 ML IV (09:41)
[2024-12-28] MEDS: labetalol 5 mg/mL SDV 20mL IVP (09:58)
--- NOTE | 2024-12-28 10:18 | P.ANESASSM_ITS ---
Pre-Anesthetic Assessment Height/Weight: Height 1.6 m Weight 77.111 kg O2 Del Method Room Air 12/28/24 09:35 Preop Diagnosis: Lumbar stenosis with neurogenic claudication Operation Date: 12/28/24 11:10 Proposed Procedures p Lumbar Spine Decompression(Not Applicable) - Paul Rajput DO Last intake: Intake Last Liquid Date 12/27/24 Last Liquid Time 21:00 Last Solid Date 12/27/24 Last Solid Time 21:00 Social Alcohol and Tobacco Exam alert, oriented x 3, clear to auscultation bilaterally and regular rate & rhythm Airway Submandibular: within normal limits Cervical ROM: within normal limits Mallampati: Class II Pulmonary Chronic Obstructive Pulmonary Disease CV/HEM Hypertension Chronic Renal Insufficiency Musc/skel Lower Back Pain and Osteoarthritis/DJD Neuropsych Anxiety Anesthetic Plan ASA status: 3 Anesthesia: General Medications/Allergies Home Medications ?Medication ?Instructions ?Recorded ?Confirmed ?Last Taken ?Type epinephrine 0.3 mg/0.3 mL 0.3 mg (0.3 mL) IM Q4H PRN 0 02/18/23 12/27/24 Unknown Rx injection, auto-injector (EpiPen) anaphylaxis #2 ea albuterol sulfate 90 mcg/actuation 2 puff inhalation Q 6H PRN 07/17/24 12/27/24 Unknown Rx aerosol inhaler (Ventolin HFA) shortness of breath or wheezing #8.5 grams metoprolol tartrate 25 mg tablet 25 mg PO BID@0900,210 0 #660 tabs 10/28/24 12/27/24 12/28/24 07:00 Rx Allergies Allergy/AdvReac Type Severity Reaction Status Date / Time bee venom protein (honey bee) Allergy Unknown ALGY-Anaphy Verified 12/28/24 09:32 laxis Penicillins AdvReac Unknown ALGY-Swell Verified 12/28/24 09:32 Lip/Tongue/Throat tetracycline AdvReac Unknown ALGY-Anaphy Verified 12/28/24 09:32 laxis Current Medications Generic Name Dose Route Start Last Admin Trade Name Freq PRN Reason Stop Dose Admin Sodium Chloride 1,000 mls @ 30 mls/hr 12/28/24 09:30 12/28/24 09:41 Sodium Chloride 0.9% IV 12/29/24 09:29 30 mls/hr .Q24H KARLY Administration PFSH Anesthesia Medical History Elevated blood pressure reading in office with diagnosis of hypertension Sacroiliac inflammation left sided Psychiatric care Asthma-COPD overlap syndrome Health care maintenance Osteoarthritis involving multiple joints on both sides of body Bee sting allergy History of alcohol abuse 06/04/2022 admits to 6-7 beers daily History of diverticulosis COVID Positive test COVID 10/08/21 CKD (chronic kidney disease) stage 2, GFR 60-89 ml/min Left kidney only since in 1987 right nephrectomy for kidney stones. 02/28/2020 creatinine 1.3 and 02/04/22 creatinine 1.1 with a GFR of 71 Allergic rhinitis due to allergen Single kidney Benign familial tremor Anxiety disorder Hypertension Pericardial effusion without cardiac tamponade Kidney stones Opioid contract exists Encounter for long-term use of opiate analgesic Chronic back pain greater than 3 months duration Surgical History Status post left inguinal hernia repair (03/05/20) H/O circumcision H/O colonoscopy 5 years ago Hx of cholecystectomy H/O esophagogastroduodenoscopy History of nephrectomy, right 1987 due to kidney stones History of partial surgical removal of colon H/O arthroscopic knee surgery Family History Other Diabetes Denies family history of CAD (coronary artery disease) Anesthesia complication Bleeding disorder Cancer Social History Smoking and tobacco/nicotine status: current every day tobacco/nicotine user cigarettes Packs smoked per day: 0.25 Alcohol intake: current Alcohol intake frequency: 0-2 Drinks per Day Substance/Drug Use: never Caregiver/support person: No Lives independently: Yes Household members: friend(s) and other Details: room mate Marital status: Single Number of children: 0 service: No Current occupational status: employed and disabled Do you think of yourself as: Straight/Heterosexual Current gender identity: Male Special eladio needs: No Data Anesthesia Cardiac Studies: Echocardiogram Ultrasound 03/02/21
--- NOTE | 2024-12-28 11:26 | W.PM.OPSUD ---
Surgery/Procedure H&P Update DATE OF PROCEDURE: December 28, 2024 DATE H&P PERFORMED: 11/29/24 H&P UPDATE INFORMATION: I have reviewed H&P completed within last 30 days, I have examined patient prior to procedure and No changes to prior documentation PREOP DIAGNOSIS: Lumbar stenosis with neurogenic claudication PLANNED PROCEDURE: Operation Date: 12/28/24 11:10 Proposed Procedures p Lumbar Spine Decompression(Not Applicable) - Paul Rajput DO
[2024-12-28] MEDS: clindamycin 600 MG/50 ML PREMIX 50 MG IV (11:35)
[2024-12-28] MEDS: lidocaine-epi 1% 20 mL INJ (12:25)
--- NOTE | 2024-12-28 13:14 | P.OP_ITS ---
Operative Report Date of procedure: December 28, 2024 Pre-op diagnosis: Lumbar stenosis with neurogenic claudication Post-op diagnosis: same Procedure done: 1. L4-5 laminectomy and partial facetectomy 2. L5-S1 laminectomy with partial facetectomy Surgeon: Paul Rajput DO Estimated blood loss (mL): 10 Procedure: 1. L4-5 laminectomy and partial facetectomy 2. L5-S1 laminectomy with partial facetectomy Patient is brought to the operative suite. After undergoing anesthesia they are placed in the prone position. All areas of impingement are well padded. Patient is then prepped and draped in the normal sterile fashion. A skin incision is made over the L4/5 level. This is confirmed under c-arm guidance. A series of dilators are passed and the tubular retractor is docked on the L4 lamina. A bovie is used to clear the soft tissue off the lamina and the L 4/5 facet joint. A high speed eduard is then used to perform the laminectomy and take down the medial aspect of the L 4/5 facet joint. A kerrison rongeure was then used to take down the remaining lamina and smooth the edge of the laminectomy up to the point where the ligamentum flavum attaches. Attention was then brought to the medial aspect of the facet joint. The remaining medial aspect of the superior and inferior aspect of the facet joint were taken down with the kerrison from the pedicle of L4 to L 5. The facet joint had significant hypertrophy. Attention was then brought to the Ligamentum Flavum. The ligament was taken down from the lamina of L4 to L5 and out medially to the remaining facet joint. The ligament was thick. The dura was then exposed. The dura was in good repair. The L4 nerve was then traced with a curette out the L4/5 foramen and found to be adequately decompressed. The L5 nerve was traced with a curette around the L5 pedicle. The lateral recess was opened with a kerrison helping to further decompress the L5 nerve. Wound is then irrigated copiously with saline and surgiflo is used to stop any bleeding. The tubular retractor is removed A skin incision is made over the L5/S1 level. This is confirmed under c-arm guidance. A series of dilators are passed and the tubular retractor is docked on the L5 lamina. A bovie is used to clear the soft tissue off the lamina and the L 5/S1 facet joint. A high speed eduard is then used to perform the laminectomy and take down the medial aspect of the L 5/S1 facet joint. A kerrison rongeure was then used to take down the remaining lamina and smooth the edge of the laminectomy up to the point where the ligamentum flavum attaches. Attention was then brought to the medial aspect of the facet joint. The remaining medial aspect of the superior and inferior aspect of the facet joint were taken down with the kerrison from the pedicle of L5 to S1. The facet joint had significant hypertrophy. Attention was then brought to the Ligamentum Flavum. The ligament was taken down from the lamina of L5 to S1 and out medially to the remaining facet joint. The ligament was thick. The dura was then exposed. The dura was in good repai r. The L5 nerve was then traced with a curette out the L5/S1 foramen and found to be adequately decompressed. The S1 nerve was traced with a curette around the S1 pedicle. The lateral recess was opened with a kerrison helping to further decompress the S1 nerve. Wound is then irrigated copiously with saline and surgiflo is used to stop any bleeding. The tubular retractor is removed and the wound is closed with vicryl and monocryl suture. Glue is then used to protect the wound. A sterile dressing is then placed. Patient was then placed in the supine position and transferred to the PACU in stable condition.
[2024-12-28] MEDS: fentaNYL 50 mcg/mL INJ 2mL IVP (13:40)
--- NOTE | 2024-12-28 13:48 | XR_ITS ---
WS: [id number] Exam: XR lumbar spine 1V [id number] Date/Time of Exam: 12/28/2024 1:48 PM Reason For Exam: or pic, decompression Preoperative C-arm images of the lower lumbar spine are submitted. Images were obtained for preoperative localization purposes.
--- NOTE | 2024-12-28 14:35 | ANE.PACU2 ---
Inpatient post-anesthesia follow up: Vital signs: Temperature 97 F Pulse Rate 77 Respiratory Rate 16 Blood Pressure 112/87 Pulse Oximetry 95 Oxygen Delivery Me thod Room Air Oxygen Flow Rate 10 Fraction of Inspir ed Oxygen Hydration adequate: Yes Nausea and vomiting: No Pain level: controlled Mental status: Baseline
== END 2024-12-28 15:00 | disposition home or self-care (01) ==
PROVIDERS: PCP Pediatrics; Visit Provider Orthopaedic Surgery
PROC: (CPT 63005; principal; 2024-12-28 11:00)
DX: M48.062 Spinal stenosis, lumbar region with neurogenic claudication (principal); J44.89 Other specified chronic obstructive pulmonary disease; I12.9 Hypertensive chronic kidney disease with stage 1 through stage 4 chronic kidney disease, or unspecified chronic kidney disease; N18.2 Chronic kidney disease, stage 2 (mild); F17.210 Nicotine dependence, cigarettes, uncomplicated; Z88.0 Allergy status to penicillin; Z88.8 Allergy status to other drugs, medicaments and biological substances; Z90.5 Acquired absence of kidney; Z90.49 Acquired absence of other specified parts of digestive tract
CPT/HCPCS: 63047; 63048; 72020; 76000; J1100; J2250; J2405; J2704; J3010; J3490; J7030; J9999

== ENCOUNTER → 2025-01-15 14:43 | Outpatient (BNVA) | payer MEDICARE, SELFPAY | PROVIDERS: PCP Pediatrics; Visit Provider Orthopaedic Surgery | DX: Z98.890 Other specified postprocedural states (principal) | CPT/HCPCS: 99024 ==

== ENCOUNTER → 2025-02-12 15:28 | Outpatient (BNVA) | payer MEDICARE, SELFPAY | PROVIDERS: PCP Pediatrics; Visit Provider Orthopaedic Surgery | DX: Z98.890 Other specified postprocedural states (principal) | CPT/HCPCS: 99024 ==

== ENCOUNTER → 2025-03-28 13:14 | Outpatient (BNVA) | payer MEDICARE, SELFPAY | PROVIDERS: PCP Pediatrics; Visit Provider Orthopaedic Surgery | DX: Z98.890 Other specified postprocedural states (principal) | CPT/HCPCS: 99024 ==